=== PATIENT | female | born 1930 | race Hispanic/Latino ===

== ENCOUNTER 2016-06-06 13:39 | Inpatient (IN) | payer OTHER, MEDICARE ==
[~2016-06-06] VITALS: Ht 157.5 cm; Wt 59.4 kg
[~2016-06-06 13:39] MED LIST: AMLODIPINE BESYL5 M1 PO; AMOX-CLAV 875-1 EACH PO; ANTIVERT 12.512.5 MG PO; CLOPIDOGREL75 M1 PO; COLACE100 M1 PO; LEVEMIR FL100 UNIT/1 SC; LYRICA200 M1 PO; MIRALAX17 GM PO; PANTOPRAZOLE SO40 M1 PO; PRAVASTATIN SOD40 M2 PO; PROTONIX40 M4 PO; RANITIDINE HCL300 M3 PO; RIVASTIGMINE1.5 MG PO; RIVASTIGMINE3 MG PO; RIVASTIGMINE6 MG PO; SIMVASTATIN40 MG PO; TRAZODONE HCL50 M1 PO; TYLENOL WITH C1 EACH PO
--- NOTE | 2016-06-06 13:41 | NUR ---
INFORMED WAITING PERFORMED.
--- NOTE | 2016-06-06 13:50 | NUR ---
PER DAUGHTER, PT HAS BEEN SHIVERING TODAY. TEMP WAS 101.5 AND PT GIVEN TYLENOL AT 1315. PT IS DEMENTED AT BASELINE. OTHER THEN THE TEMP NO OTHER PROBLEMS NOTED. TEMP IN TRIAGE 102.9
--- NOTE | 2016-06-06 13:54 | ED GENERAL ADULT ---
See Addendum History of Present Illness General Chief Complaint: General Adult Stated Complaint: SHIVERING,FEVER 101.5 NO OTHER SYMPTOMS Source: patient, family Exam Limitations: dementia, language barrier Vital Signs & Intake/Output Vital Signs & Intake/Output Vital Signs Date Time Temp Pulse Resp B/P Pulse O2 O2 Flow FiO2 Ox Delivery Rate 06/06 1641 97.9 68 18 128/66 96 Room Air 06/06 1349 102.9 69 20 132/57 95 Room Air Triage Note: PER DAUGHTER, PT HAS BEEN SHIVERING TODAY. TEMP WAS 101.5 AND PT GIVEN TYLENOL AT 1315. PT IS DEMENTED AT BASELINE. OTHER THEN THE TEMP NO OTHER PROBLEMS NOTED. TEMP IN TRIAGE 102.9 Triage Nurses Notes Reviewed? yes Onset: Abrupt Duration: day(s): (1) Timing: single episode today Injury Environment: home Severity: moderate Associated Symptoms: CHILLS, RIGORS HPI: This is an 86 old female with history of dementia, CVA who resents from home for chief complaint of fever and right ears this morning. According to the daughter she started to be a little lethargic yesterday during the day but without fever. They figured it was because she was up the previous night talking with family members. She is staying currently with one of her daughters. She was taken out of the house of another family member because everybody there was sick with influenza. She was fine until yesterday morning. Today they noted that she was having right Moses had a fever of 99. It then went to 101 and she was given 650 mg of Tylenol at 12:15. No nausea or vomiting or diarrhea. No rash. No cough shortness of breath or sore throat. They do see that she is urinating frequently. (NANCY STERLING,AXEL) Allergies Coded Allergies: codeine (Severe, HALLUCINATIONS, NAUSEA 06/06/16) oxycodone (From Percocet) (Severe, HALLUCINATIONS, NAUSEA 06/06/16) Sulfa (Sulfonamide Antibiotics) (N/V SEVERE 06/06/16) Reconcile Medications Alendronate Sodium 70 MG TABLET 1 TAB PO QMON OSTEOPOROSIS (Reported) in the morning, at least 30 minutes before the first food, beverage, or medication of the day Amlodipine Besylate 5 MG TABLET 1 TAB PO DAILY b/p (Reported) CLOPIDOGREL BISULFATE (Clopidogrel) 75 MG TABLET 1 TAB PO DAILY BLOD THINNER (Reported) Docusate Sodium (Colace) 100 MG CAPSULE 1 CAP PO BID STOOL SOFTENER (Reported ) Insulin Detemir (Levemir) 100 UNIT/ML VIAL 10 U SC AT BEDTIME DIABETES ( Reported) Insulin Lispro (Humalog Kwikpen U-100) 100 UNIT/ML INSULN.PEN DM (Reported) Pantoprazole Sodium (Protonix) 40 MG GRANPKT.DR 1 TAB PO DAILY ACID REFLUX ( Reported) Polyethylene Glycol 3350 (Miralax) 17 GRAM/DOSE POWDER 17 GM PO DAILY GI ( Reported) mix with water, juice, soda, coffee or tea Pravastatin Sodium 40 MG TABLET 1 TAB PO DAILY hypercholesterolemia (Reported ) Pregabalin (Lyrica) 200 MG CAP 1 CAP PO DAILY PAIN (Reported) Ranitidine HCl 300 MG CAPSULE 1 CAP PO DAILY GI (Reported) Rivastigmine Tartrate (Rivastigmine) 6 MG CAPSULE 1 CAP PO BID MEMORY ( Reported) Sennosides (Senna) (Unknown Strength) TABLET (Unknown Dose) UNKNOWN (Reported ) Trazodone HCl 50 MG TABLET 1 TAB PO QPM sleep (Reported) (JEFF NAVARRO DO) Past History Travel History Traveled to [place] past 21 day No Medical History Any Pertinent Medical History? see below for history Neurological: CVA, dementia, TIA EENT: NONE Cardiovascular: hypertension Respiratory: NONE Gastrointestinal: NONE Hepatic: NONE Renal: urinary incontinence Musculoskeletal: NONE Psychiatric: NONE Endocrine: diabetes Blood Disorders: NONE Cancer(s): NONE PARACHUTE RIGGER/Reproductive: NONE History of MRSA: Yes History of VRE: No History of CDIFF: No Pneumonia Vaccine: 04/04/14 Influenza Vaccine: 04/17/16 Surgical History Surgical History: AMPUTATION OF TOES Psychosocial History Who do you live with Family Services at Home None What is your primary language Malay Tobacco Use: Never used ETOH Use: denies use Family History Hx Contributory? No (NANCY STERLING,AXEL) Review of Systems Review of Systems Constitutional: Reports: chills, fever. EENTM: Reports: no symptoms. Respiratory: Denies: cough, short of breath. Cardiovascular: Denies: chest pain. GI: Denies: abdominal pain, diarrhea, nausea, vomiting. Genitourinary: Reports: frequency. Musculoskeletal: Reports: no symptoms. Skin: Reports: no symptoms. Neurological/Psychological: Reports: no symptoms. Hematologic/Endocrine: Reports: polyuria. Denies: bruising, bleeding, polydipsia. Immunologic/Allergic: Reports: no symptoms. All Other Systems: Reviewed and Negative (AXEL KELLER MD) Physical Exam Physical Exam General Appearance: well developed/nourished, alert, awake, anxious, mild distress Head: atraumatic, normal appearance Eyes: Bilateral: PERRL, EOMI. Ears, Nose, Throat: normal pharynx, normal ENT inspection, hearing grossly normal Neck: normal inspection, supple, full range of motion Respiratory: normal breath sounds, chest non-tender, no respiratory distress Cardiovascular: regular rate/rhythm Peripheral Pulses: 2+ radial (R), 2+ radial (L) Gastrointestinal: normal bowel sounds, soft, non-tender Extremities: normal inspection, normal capillary refill, normal range of motion, no edema Neurologic/Psych: no motor/sensory deficits, awake, alert Skin: intact, normal color, warm/dry Core Measures ACS in differential dx? No CVA/TIA Diagnosis: No Severe Sepsis Present: No Septic Shock Present: No (AXEL KELLER MD) Progress Differential Diagnoses I considered the following diagnoses in my evaluation of the patient: [UTI, PNEUMONIA, BACTERMIA, SEPSIS, influenza, viral syndrome] Plan of Care: Orders Procedure Date/time Status Heart Healthy Diet 06/07 B Active Admit to inpatient 06/06 1732 Active Vital Signs 06/06 1732 Active Code Status 06/06 1732 Active Add-on Test (ER Only) 06/06 1651 Active CULTURE,URINE 06/06 1629 Active Add-on Test (ER Only) 06/06 1504 Active EKG 06/06 1451 Active LACTIC ACID 06/06 1428 Complete RAPID VIRAL INFLUENZA A 06/06 1354 Complete BLOOD CULTURE 06/06 1354 Active URINALYSIS 06/06 1354 Complete COMPREHENSIVE METABOLIC PANEL 06/06 1354 Complete CBC WITHOUT DIFFERENTIAL 06/06 1354 Complete Laboratory Tests 06/06/16 1629: Urinalysis LIGHT H, Urine Color YEL, Urine Clarity HAZY H, Urine pH 6.0, Ur Specific [place] 1.020, Urine Protein 30 H, Urine Ketones NEG, Urine Nitrite NEG, Urine Bilirubin NEG, Urine Urobilinogen 0.2, Ur Leukocyte Esterase LARGE H , Ur Microscopic SEDIMENT EXAMINED, Urine RBC 1-3, Urine WBC 50-75 H, Ur Epithelial Cells RARE, Urine Mucus RARE, Urine Hemoglobin SMALL H, Urine Glucose NEG 06/06/16 1428: Anion Gap 13, Estimated GFR 60, BUN/Creatinine Ratio 26.7 H, Glucose 217 H, Lactic Acid 1.6, Calcium 8.7, Total Bilirubin 0.4, AST 27, ALT 24, Alkaline Phosphatase 179 H, Total Protein 6.7, Albumin 3.5, Globulin 3.2, Albumin/ Globulin Ratio 1.1, CBC w Diff MAN DIFF ORDERED, RBC 3.84 L, MCV 90.6, MCH 30.8 , RDW 12.6, MPV 10.5 H, Gran % 90.5 H, Lymphocytes % 4.5 L, Monocytes % 4.2, Eosinophils % 0.1, Basophils % 0.7, Absolute Granulocytes 15.9 H, Segmented Neutrophils 79 H, Band Neutrophils 8 H, Absolute Lymphocytes 0.8 L, Lymphocytes 8 L, Monocytes 5, Absolute Monocytes 0.7 H, Absolute Eosinophils 0 , Absolute Basophils 0.1, Platelet Estimate DECREASED, Hypochromic-Microcytic 1+ , PUBS MCHC 34.0 Microbiology 06/06 1629 URINE ROUT: Urine Culture - RECD 06/06 1428 BLOOD: Blood Culture - RECD 06/06 1354 BLOOD: Blood Culture - ORD Diagnostic Imaging: Viewed by Me: Radiology Read. Discussed w/RAD: Radiology Read. CXR Impression: EXAM TYPE: RAD - XRY-CHEST XRAY, PA AND LATERAL Indication: Fever EXAMINATION: 2 views of the chest. Comparison is made to previous exam dated 07/23/2012. Also 05/09/2016 FINDINGS: Once again prominent heart size but there is no failure and no infiltrate is seen. The lung nguyen are grossly clear. No effusion. Calcification in the aortic arch is once again noted. IMPRESSION: No acute process. Persistent cardiomegaly. No failure or effusion. No infiltrate Initial ED EKG: none Prior EKG: unchanged Hand-Off Endorsed To: JEFF NAVARRO DO Endorsed Time: 1531 Pending: labs, other (U/A) (AXEL KELLER MD) Departure Departure Disposition: STILL A PATIENT Condition: Stable Clinical Impression Primary Impression: Fever Referrals: AILYN MCKENNA (PCP/Family) Departure Forms: Customer Survey General Discharge Information (AXEL KELLER MD) Departure Comments 06/06/16 Patient signed out to me by Dr Keller. She is pending lab results. Admission Note Spoke With: CECIL REAL MD Documentation of Exam: Documentation of any treatments & extenuating circumstances including Concerns Regarding Discharge (functional status, medication knowledge or non-compliance, living conditions, etc.) that warrant an admission rather than observation: [The patient is being admitted for IV antibiotics, IV fluids, reevaluation, R/O sepsis (JEFF NAVARRO DO) Critical Care Note Critical Care Note Critical Care Time: non-applicable (AXEL KELLER MD) Critical Care Note Comments: 06/06/16 5:46 PM The patient was signed out to me by Dr. Keller. Urinalysis shows pyuria. IV ceftriaxone has been given. (JEFF NAVARRO DO) (AXEL KELLER MD) Critical Care Note Comments: 06/06/16 5:46 PM The patient was signed out to me by Dr. Keller. Urinalysis shows pyuria. IV ceftriaxone has been given. (JEFF NAVARRO DO)
--- NOTE | 2016-06-06 14:34 | NUR ---
FLU SWAB AND BLOOD WORK SENT TO LAB: SST, LAV, BLUE, PICKETT AND FIRST SET OF CULTURES.
[2016-06-06 14:39] LABS: ABSOLUTE BASOPHIL COUNT 0.1 /CUMM (0.0-0.2); ABSOLUTE EOSINOPHIL COUNT 0 /CUMM (0.0-0.7); ABSOLUTE GRANULOCYTE CT 15.9 /CUMM (1.4-6.5); ABSOLUTE LYMPH COUNT 0.8 /CUMM (1.2-3.4); ABSOLUTE MONOCYTE COUNT 0.7 /CUMM (0.10-0.60); BASOPHIL % 0.7 % (0.0-2.0); EOSINOPHIL % 0.1 % (0-5); HEMATOCRIT 34.8 % (37-47); MEAN CORPUSCULAR HGB 30.8 PG (27.0-31.0); MEAN CORPUSCULAR VOLUME 90.6 FL (81.0-99.0); MEAN PLATELET VOLUME 10.5 FL (7.4-10.4); PLATELET COUNT 145 /CUMM (130-400); RBC DISTRIBUTION WIDTH 12.6 % (11.5-14.5); RED BLOOD CELL CT 3.84 /CUMM (4.20-5.40); WHITE BLOOD CELL COUNT 17.6 /CUMM (4.8-10.8)
[2016-06-06 14:40] LABS: GRANULOCYTE % 90.5 % (42.2-75.2)
--- NOTE | 2016-06-06 14:58 | RADIOLOGY REPORT ---
Indication: Fever EXAMINATION: 2 views of the chest. Comparison is made to previous exam dated 07/23/2012. Also 05/09/2016 FINDINGS: Once again prominent heart size but there is no failure and no infiltrate is seen. The lung nguyen are grossly clear. No effusion. Calcification in the aortic arch is once again noted. IMPRESSION: No acute process. Persistent cardiomegaly. No failure or effusion. No infiltrate
--- NOTE | 2016-06-06 15:23 | NUR ---
PTS DAUGHTER ASSISTING PT UP TO THE COMMODE AT THIS TIME, URINE IS NEEDED AND DAUGHTER DOES NOT WANT PT STRAIGHT CATHED DUE TO RISK OF INFECTION
--- NOTE | 2016-06-06 15:56 | NUR ---
PT UNABLE TO VOID ON COMMODE AND DAUGHTER GIVES OK FOR STRAIGHT CATH AT HIS TIME
--- NOTE | 2016-06-06 16:31 | NUR ---
PT STRAIGHT CATH FOR 400 CC CLEAR YELLOW URINE, NO FOUL ODOR NOTED, DAUGHTER REMAINS AT BEDSIDE WITH PT. URINE TRIO SENT
[2016-06-06] MEDS ORDERED: ALENDRONATE SOD70 M2 PO (16:52)
[2016-06-06] MEDS ORDERED: HUMALOG KW100 UNIT/1 SC (16:53)
[2016-06-06] MEDS ORDERED: RANITIDINE HCL300 M3 PO (16:53)
[2016-06-06] MEDS ORDERED: SENNA8.6 M3 (16:54)
[2016-06-06] MEDS ORDERED: RIVASTIGMINE6 MG PO (16:58)
--- NOTE | 2016-06-06 18:36 | NUR ---
PT SITTING UP EATING AT THIS TIME PER FAMILY PT NEEDS DIABETIC TRAY BUT THAT IT NEEDS TO BE PUREED DUE TO PT WILL NOT WEAR HER DENTURES . DR NAVARRO MADE AWARE TO CHANGE ORDER
--- NOTE | 2016-06-06 21:05 | NUR ---
HOUSE STAFF AT BEDSIDE FOR EVAL
--- NOTE | 2016-06-06 21:25 | History & Physical ---
ISIDRO NIEVES MDRIE 06/06/162123: General Information and HPI MD Statement: I have seen and personally examined JOSAFAT CONTRERAS and documented this H&P. The patient is a 86 year old F who presented with a patient stated chief complaint of [fever and chills]. Source of Information: patient, family Exam Limitations: dementia, language barrier, pt only speaks r[place], but her daughter was at bedside to give us the history. History of Present Illness: 86-year-old female with PMH dementia, CVA, IDDM, HTN, HLD, PVD, UTI with group B strep, was brought in for fever and chills. Pt is demented and only speaks rwandan. Her daughter was at bedside giving us the history. 2 night ago, pt stayed up late chit chatting with her daughter, and she ended up sleeping late. The day after, she was noted to be more lethargic and sleepy. The daughter attributed it to her staying up late the night prior. The day of admission, she appeared to be in her normal state of health, up until around 10 am. She then complained of feeling cold and started shivering that lasted 30 minutes. Home PT was there and took her temp, initially 99.5, and went as high as 101.5. She was given tylenol at around 115 and examined in the ED about 1.5 hours later. Her temp at triage was 102.9. Sick contacts include pt's daughter and son-in-law, whom she was living with. Since they got sick, she has been relocated to her son's house. She denies myalgia or any other flu like symptoms. Her appetite has been good, and she has been drinking more fluids. As such, she is also noted to have increased urinary frequency, althought denies dysuria, burning with urination, change in urine color or odor. Of note, pt was admitted and discharged from [facility] on 05/11/16 for AMS most likely secondary to UTI with UC growing group B strep. She completed 3 days of augmentin. Pt is usually continent of urine at baseline. Pt's hx is also significantly for right and left big toe amputation for PVD and MRSA infection. Pt should be ambulating with a walker but is non compliant. About 3 weeks ago, she was walking by herself in the dark and fell, with a bruise still noted on the left eye. She is allergic to codeine, oxycodone, and sulfa. Allergies/Medications Allergies: Coded Allergies: codeine (Severe, HALLUCINATIONS, NAUSEA 06/06/16) oxycodone (From Percocet) (Severe, HALLUCINATIONS, NAUSEA 06/06/16) Sulfa (Sulfonamide Antibiotics) (N/V SEVERE 06/06/16) Home Med list Alendronate Sodium 70 MG TABLET 1 TAB PO QMON OSTEOPOROSIS (Reported) in the morning, at least 30 minutes before the first food, beverage, or medication of the day Amlodipine Besylate 5 MG TABLET 1 TAB PO DAILY b/p (Reported) CLOPIDOGREL BISULFATE (Clopidogrel) 75 MG TABLET 1 TAB PO DAILY BLOD THINNER (Reported) Docusate Sodium (Colace) 100 MG CAPSULE 1 CAP PO BID STOOL SOFTENER (Reported ) Insulin Detemir (Levemir) 100 UNIT/ML VIAL 10 U SC AT BEDTIME DIABETES ( Reported) Insulin Lispro (Humalog Kwikpen U-100) 100 UNIT/ML INSULN.PEN DM (Reported) Pantoprazole Sodium (Protonix) 40 MG GRANPKT.DR 1 TAB PO DAILY ACID REFLUX ( Reported) Polyethylene Glycol 3350 (Miralax) 17 GRAM/DOSE POWDER 17 GM PO DAILY GI ( Reported) mix with water, juice, soda, coffee or tea Pravastatin Sodium 40 MG TABLET 1 TAB PO DAILY hypercholesterolemia (Reported ) Pregabalin (Lyrica) 200 MG CAP 1 CAP PO DAILY PAIN (Reported) Ranitidine HCl 300 MG CAPSULE 1 CAP PO DAILY GI (Reported) Rivastigmine Tartrate (Rivastigmine) 6 MG CAPSULE 1 CAP PO BID MEMORY ( Reported) Sennosides (Senna) (Unknown Strength) TABLET (Unknown Dose) UNKNOWN (Reported ) Trazodone HCl 50 MG TABLET 1 TAB PO QPM sleep (Reported) Past History Travel History Traveled to [place] past 21 day No Medical History Neurological: CVA, dementia, TIA EENT: NONE Cardiovascular: hypertension, myocardial infarction Respiratory: NONE Gastrointestinal: NONE Hepatic: NONE Musculoskeletal: NONE Psychiatric: NONE Endocrine: diabetes Blood Disorders: NONE Cancer(s): NONE DIRECTOR INVESTOR RELATIONS/Reproductive: NONE History of MRSA: Yes Active MRSA Infection: No History of VRE: No History of CDIFF: No Isolation History: Standard Pneumonia Vaccine: 04/04/14 Influenza Vaccine: 04/17/16 Surgical History Surgical History: AMPUTATION OF TOES Past Family/Social History Psychosocial History Where do you live? Home Who Do You Live With? child Services at Home: Physical Therapy Primary Language: [place] Citizen Smoking Status: Never Smoked ETOH Use: denies use Illicit Drug Use: denies illicit drug use Power of Pearl Technician/HCP? yes Functional Ability ADLs Needs Assist: dressing, eating, toileting, bathing. Ambulation: walker IADLs Needs Assist: shopping, housework, finances, food prep, telephone, transportation, medication admin. Review of Systems Review of Systems Constitutional: Reports: chills, fever. Denies: weakness. EENTM: Denies: double vision, visual changes. Cardiovascular: Denies: chest pain, palpitations. Respiratory: Denies: cough, short of breath. GI: Denies: abdominal pain, bloating, constipation, diarrhea, distention. Genitourinary: Reports: frequency, nocturia. Denies: dysuria, hematuria, hesitation, pain, urgency. Exam & Diagnostic Data Last 24 Hrs of Vital Signs/I&O Vital Signs Date Time Temp Pulse Resp B/P Pulse O2 O2 Flow FiO2 Ox Delivery Rate 06/06 1930 97.2 57 16 159/67 100 Room Air 06/06 1641 97.9 68 18 128/66 96 Room Air 06/06 1349 102.9 69 20 132/57 95 Room Air Intake & Output 06/06 1600 06/06 0800 06/06 0000 Intake Total 1000 Output Total Balance 1000 Intake, IV 1000 Patient 59.421 kg Weight Physical Exam General Appearance Alert, Cooperative, No Acute Distress Skin bruise around the left eye HEENT Atraumatic, PERRLA Cardiovascular Regular Rate, Normal S1, Normal S2, No Murmurs, Gallops, Rubs Lungs Clear to Auscultation, Normal Air Movement Abdomen Normal Bowel Sounds, Soft, No Tenderness, no flank pain bilaterally Neurological Normal Speech Extremities No Edema, Normal Pulses, sp right and left big toe amputation Vascular normal cap refill Last 24 Hrs of Labs/Justo: Laboratory Tests 06/06/16 1629: Urinalysis LIGHT H, Urine Color YEL, Urine Clarity HAZY H, Urine pH 6.0, Ur Specific [place] 1.020, Urine Protein 30 H, Urine Ketones NEG, Urine Nitrite NEG, Urine Bilirubin NEG, Urine Urobilinogen 0.2, Ur Leukocyte Esterase LARGE H , Ur Microscopic SEDIMENT EXAMINED, Urine RBC 1-3, Urine WBC 50-75 H, Ur Epithelial Cells RARE, Urine Mucus RARE, Urine Hemoglobin SMALL H, Urine Glucose NEG 06/06/16 1428: Anion Gap 13, Estimated GFR 60, BUN/Creatinine Ratio 26.7 H, Glucose 217 H, Lactic Acid 1.6, Calcium 8.7, Total Bilirubin 0.4, AST 27, ALT 24, Alkaline Phosphatase 179 H, Total Protein 6.7, Albumin 3.5, Globulin 3.2, Albumin/ Globulin Ratio 1.1, CBC w Diff MAN DIFF ORDERED, RBC 3.84 L, MCV 90.6, MCH 30.8 , RDW 12.6, MPV 10.5 H, Gran % 90.5 H, Lymphocytes % 4.5 L, Monocytes % 4.2, Eosinophils % 0.1, Basophils % 0.7, Absolute Granulocytes 15.9 H, Segmented Neutrophils 79 H, Band Neutrophils 8 H, Absolute Lymphocytes 0.8 L, Lymphocytes 8 L, Monocytes 5, Absolute Monocytes 0.7 H, Absolute Eosinophils 0 , Absolute Basophils 0.1, Platelet Estimate DECREASED, Hypochromic-Microcytic 1+ , PUBS MCHC 34.0 Microbiology 06/06 1629 URINE ROUT: Urine Culture - RECD 06/06 1428 BLOOD: Blood Culture - RECD 06/06 1354 BLOOD: Blood Culture - ORD Assessment/Plan Assessment: 86-year-old female with PMH dementia, CVA, IDDM, HTN, HLD, PVD, UTI with group B strep, was brought in for fever up to 102.9 and chills. Labs significant for WBC 17.6 with bands, UA large amount of leukocyte esterase and wbc 50-75, with negative nitrite and rare epithelial cells. She is admitted to general medicine floor for sepsis of urological origin. # Sepsis of urological origin - LA 1.6, pt does not appear dehydrated - Given 1 X ceftriaxone in ED - Given 1L of NS in the ED - Hx of group b strep UTI 1 month ago, treated with 3 days of augmentin. - no flank pain bilaterally * Follow urine culture and BC X 2 * Continue ceftriaxone * Follow rapid flu # Dementia * Continue rivastigmine 6 bid # DM * Continue lyrica 200 mg * accucheck * levemir 6 at bedtime (as per daughter) * insulin ss # Osteoporosis * Continue alendronate 70 q saturday # HTN * Continue amlodipine 5 # HLD * Continue statin (pravastatin 40 at home) # Hx of CVA * Continue plavix 75 daily # GI * Continue protonix 40 * Continue ranitidine 300 mg # Constipation * Continue docusate * Continue miralax * Continue senna # Sleep * Continue trazodone 50 qpm Diet: puree DVT ppx: mech and pharm DNR/DNI As Ranked By This Provider Problem List: 1. Leukocytosis 2. Fever 3. UTI (urinary tract infection) Core Measures/Miscellaneous Acute Coronary Syndrome ACS Diagnosis: No Cerebrovascular Accident CVA/TIA Diagnosis: No Congestive Heart Failure CHF Diagnosis: No Venous Thromboembolism VTE Risk Factors: Acute medical illness, Age > 40 VTE Prophylaxis Ordered Inpt: Mech & Pharm No Mech VTE prophylaxis d/t: No contraindications No VTE Pharm Prophylaxis d/t: No contraindications VTE Diagnosis: No VTE Type: NONE VTE Confirmed by (Test): NONE Severe Sepsis Severe Sepsis Present: No Septic Shock Septic Shock Present: No Miscellaneous Documentation Attending Case Discussed With: KILLIAN GUZMAN MD Primary Care Physician: AILYN MCKENNA Patient sees these Specialists N/A Level of Patient Care: General Medicine YOGESHTHIERNOSA MIREYAUD 06/07/16 0119: Resident Review Statement Resident Statement: examined this patient, discussed with internet e commerce specialist, agreed with internet e commerce specialist, discussed with family, reviewed EMR data (avail), reviewed images, amended to note Other Findings: This is a 86-year-old female with past medical history of diabetes mellitus, CVA , hypertension, hyperlipidemia, peripheral vascular disease, recurrent UTI, dementia, history of MRSA. Patient was recently discharged from [facility] on 05/11/2016 that was for altered mental status and underlying cystitis that was treated with by mouth Augmentin. Patient presenting now with chief complaint of high fever of 101.5, feeling lethargic and weak and she complain of feeling cold. Patient report sick contact of flu. The family reported that she fell down 3 weeks ago and her head. Patient had fever on arrival TO ED 102.9. Urine analysis positive for high WBC count and leukoesterase, patient has a leukocytosis 17.6 with positive band. Most of the history was taking from her daughter. Physical examination, lab and imaging as above. Problem list: -Sepsis secondary to UTI -Lethargy, weakness due to UTI -Pseudohyponatremia due to hyperglycemia, corrected sodium 137 -Hypertension Plan: -Admit patient to general medicine floor -Vitals every shift -Start the patient on IV ceftriaxone pending culture results -Follow-up blood and urine culture -Start the patient on IV NS @75 cc fluid maintenance -Both lactic acid came back negative -Accu-Chek, Levemir and insulin sliding scale -Carbohydrate consistent diet, pure and thin -Physical therapy consultation. -Pain pathway -Continue home medication -DVT prophylaxis: Subcutaneous heparin -DNI DNR per the patient daughter. KILLIAN GUZMAN 06/07/16 0151: Attending MD Review Statement Attending Statement Attending MD Statement: examined this patient, discuss w/resident/PA/FIRST SAMPLER, agreed w/resident/PA/FIRST SAMPLER, discussed with family, reviewed EMR data (avail), reviewed images, amended to note Attending Assessment/Plan: CC: Fever and chills PMHx: Dementia, CVA, DM, HTN, HLD, [place]/CAD, PVD, osteomyelitis in the past with MRSA Patient brought in by her daughter for fever and chills. Patient's is taken care by daughter and son. Daughter, who is RN, states that patient had been lethargic per day before. Then on the day of admission patient started shivering and had fever spike of 101.5 at home. Patient did not complain of any urinary pain, burning had some frequency in urination. Denied any upper respiratory symptoms, cough, chest pain, abdominal pain, back pain, skin rashes. She had sick contacts daughter and son-in-law having flu sometime back. Her diet was changed to pured and last admission and has been compliant with the diet, does not wear dentures, no choking episodes. Of note patient's daughter was saying that the patient's blood glucose has been running below since last few days and that decreased the dose of long-acting insulin. Vitals: Tmax at presentation 102.9, pulse in 70s, RR in 20s, mildly hypertensive , saturating well on room air. On exam: [place] Citizen-speaking, alert, responds appropriately, follows instructions. CVS: S1-S2, RRR. RS: Clear air entry bilaterally. Neck supple, no lymphadenopathy, and, no JVD, mucosa dry, no upper respiratory congestion, no skin rashes on complete examination, no pressure ulcers on back. Abdomen: Soft, NT, ND, no Marie sign, bowel sounds present. No focal neurological deficit. No extremity edema. Labs: WBC 17.6 with neutrophils 90%, hemoglobin 11.8 (chronic), blood glucose 217, lactate 1.6, alkaline phosphatase 179. UA shows leukocyte esterase trace. Chest x-ray no acute processes. A and P #1 Sepsis probably secondary to UTI: Patient had leukocytosis, fever with urine positive for leukocyte esterase. Previously patient was then admitted for similar complaints and discharged on May 11 on Augmentin. Previous urine was positive for group B strep. This could be recurrent UTI. Previous admission patient had CT abdomen and pelvis without any significant hydronephrosis or stones, but patient's urinary bladder showed diffuse prominence. On examination currently patient does not have any CVA tenderness or suprapubic tenderness. Does not have any nasal congestion or any other rashes, Marie's sign negative. Probably this is secondary to cystitis. Get urine cultures, blood cultures continue ceftriaxone IV. Check CULTURES if not done. If patient persistently spikes fever and will need renal ultrasound to rule out any obstruction. Post void bladder scan to rule out retention. Await for urine culture to be escalate antibiotics. #2 DM. Ppatient currently on insulin, continue home doses of insulin for long- acting and change short-acting scheduled to sliding scale. Patient is currently hyperglycemic, but family states that she has been having low sugars at home. If required endocrine consult in AM. #3 OT PT evaluation in AM. #4 DVT prophylaxis with Lovenox. Adequate pain control. #5 chronic stable conditions with dementia, CVA, HTN, CAD, PVD, HLD: Continue all her home medications including Plavix, amlodipine, Protonix, pravastatin, Lyrica, reverse segment, trazodone
[2016-06-06 23:55] VITALS: BP 180/60
[2016-06-07 01:42] VITALS: BP 138/50
--- NOTE | 2016-06-07 01:52 | Admission Certification ---
Admission Certification Certification Statement - As attending physician, I certify that at the time of - admission, based on clinical presentation, severity of - symptoms, need for further diagnostic testing and - therapeutic interventions, and risk of adverse outcomes - without in-hospital treatment, in my clinical assessment, - this patient requires an acute hospital stay for a minimum - of two nights or longer. I have also considered psychsocial - factors such as support system, advanced age, financial - issues, cognitive issues, and failed out-patient treatments, - past re-admission history, safety of patient, and lack of - compliance as applicable. Specific rationale supporting this admission is: Sepsis with UTI
[2016-06-07 06:32] LABS: ABSOLUTE BASOPHIL COUNT 0 /CUMM (0.0-0.2); ABSOLUTE EOSINOPHIL COUNT 0.2 /CUMM (0.0-0.7); ABSOLUTE GRANULOCYTE CT 9.9 /CUMM (1.4-6.5); ABSOLUTE LYMPH COUNT 1.5 /CUMM (1.2-3.4); ABSOLUTE MONOCYTE COUNT 0.8 /CUMM (0.10-0.60); BASOPHIL % 0.3 % (0.0-2.0); EOSINOPHIL % 1.4 % (0-5); HEMATOCRIT 31.1 % (37-47); MEAN CORPUSCULAR HGB 30.6 PG (27.0-31.0); MEAN CORPUSCULAR HGB CONC 33.2 G/DL (33.0-37.0); MEAN CORPUSCULAR VOLUME 92.1 FL (81.0-99.0); MEAN PLATELET VOLUME 10.1 FL (7.4-10.4); PLATELET COUNT 117 /CUMM (130-400); RBC DISTRIBUTION WIDTH 13.1 % (11.5-14.5); RED BLOOD CELL CT 3.38 /CUMM (4.20-5.40); WHITE BLOOD CELL COUNT 12.3 /CUMM (4.8-10.8)
[2016-06-07 08:03] VITALS: BP 133/62
--- NOTE | 2016-06-07 08:43 | PN- Housestaff ---
ANEL STERLING,[facility] 06/07/16 0842: Subjective Follow-up For: Weakness Urinary tract infection Subjective: Patient seen and examined this morning. She was lying comfortably in bed in no acute distress. MAXIMUM TEMPERATURE of 99.1 today, other vitals remained within normal limits. No urinary complaints except for increased frequency of urination, denies any suprapubic pain, CVA tenderness. Has been tolerating by mouth intake well. Review of Systems Constitutional: Reports: see HPI. Objective Last 24 Hrs of Vital Signs/I&O Vital Signs Date Time Temp Pulse Resp B/P Pulse O2 O2 Flow FiO2 Ox Delivery Rate 06/07 1100 57 133/62 06/07 0803 99.1 57 20 133/62 95 Room Air 06/07 0737 99.1 57 20 133/62 95 Room Air 06/07 0142 61 138/50 06/07 0012 60 180/60 06/06 2355 96.7 74 18 180/60 99 Room Air 06/06 1930 97.2 57 16 159/67 100 Room Air 06/06 1641 97.9 68 18 128/66 96 Room Air Intake & Output 06/07 1600 06/07 0800 06/07 0000 Intake Total 690 150 Output Total 450 700 Balance 240 -550 Intake, IV 450 0 Intake, Oral 240 150 Number 0 0 Bowel Movements Output, Urine 450 700 Patient 59.421 kg Weight Physical Exam General Appearance: Alert, Oriented X3, Cooperative Cardiovascular: Regular Rate, Normal S1, Normal S2 Lungs: Clear to Auscultation, Normal Air Movement Abdomen: Normal Bowel Sounds, Soft, No Tenderness Neurological: Normal Speech, Strength at 5/5 X4 Ext Current Medications: Current Medications Sig/Rachelle Start time Last Medication Dose Route Stop Time Status Admin Acetaminophen 650 MG Q6P PRN 06/06 2115 AC PO Alendronate Sodium 70 MG QMON 06/11 0700 AC PO Amlodipine Besylate 5 MG DAILY 06/07 1000 AC 06/07 PO 1100 Amlodipine Besylate 0 .STK-MED ONE 06/07 0009 DC PO Amlodipine Besylate 5 MG ONCE ONE 06/06 2345 DC 06/07 PO 06/06 2346 0012 Ceftriaxone Sodium 1,000 MG 1700 06/07 1700 AC IV Ceftriaxone Sodium 0 .STK-MED ONE 06/06 1733 DC .ROUTE Ceftriaxone Sodium 1,000 MG DAILY 06/06 1714 DC 06/06 IV 1735 Clopidogrel Bisulfate 75 MG DAILY 06/07 1000 AC 06/07 PO 1100 Docusate Sodium 100 MG BID 06/07 1000 AC 06/07 PO 1100 Heparin Sodium 5,000 UNIT Q8 06/06 2200 AC 06/07 (Porcine) SC 1307 Insulin Aspart 0 TIDAC 06/07 0800 AC 06/07 SC 1215 Insulin Detemir 6 UNITS QPM 06/06 2200 AC 06/06 SC 2320 Omeprazole 40 MG DAILY AC 06/07 0700 AC 06/07 PO 0627 Pravastatin Sodium 40 MG 1700 06/07 1700 AC PO Pregabalin 200 MG DAILY 06/07 1000 AC 06/07 PO 1200 Pregabalin 0 .STK-MED ONE 06/07 0010 DC PO Pregabalin 200 MG ONCE ONE 06/06 2345 DC 06/07 PO 06/06 2346 0012 Rivastigmine Tartrate 6 MG BID 06/07 1000 AC 06/07 PO 1100 Sodium Chloride 1,000 ML Q13H 06/06 2345 DC 06/07 IV 06/07 1244 0012 Trazodone HCl 50 MG QPM 06/06 2200 AC 06/06 PO 2320 Last 24 Hrs of Lab/Justo Results Last 24 Hrs of Labs/Mics: Laboratory Tests 06/07/16 0625: Anion Gap 7, Estimated GFR 47 L, BUN/Creatinine Ratio 20.9, CBC w Diff NO MAN DIFF REQ, RBC 3.38 L, MCV 92.1, MCH 30.6, RDW 13.1, MPV 10.1, Gran % 80.0 H, Lymphocytes % 12.1 L, Monocytes % 6.2, Eosinophils % 1.4, Basophils % 0.3, Absolute Granulocytes 9.9 H, Absolute Lymphocytes 1.5, Absolute Monocytes 0.8 H, Absolute Eosinophils 0.2, Absolute Basophils 0, PUBS MCHC 33.2 06/07/16 0034: Lactic Acid 1.2 06/06/16 1629: Urinalysis LIGHT H, Urine Color YEL, Urine Clarity HAZY H, Urine pH 6.0, Ur Specific [place] 1.020, Urine Protein 30 H, Urine Ketones NEG, Urine Nitrite NEG, Urine Bilirubin NEG, Urine Urobilinogen 0.2, Ur Leukocyte Esterase LARGE H , Ur Microscopic SEDIMENT EXAMINED, Urine RBC 1-3, Urine WBC 50-75 H, Ur Epithelial Cells RARE, Urine Mucus RARE, Urine Hemoglobin SMALL H, Urine Glucose NEG Microbiology 06/07 0034 BLOOD: Blood Culture - RECD 06/06 1629 URINE ROUT: Urine Culture - RES GRAM NEGATIVE RODS BETA STREP GROUP B Assessment/Plan Assessment: 86-year-old female with PMH dementia, CVA, IDDM, HTN, HLD, PVD, UTI with group B strep, was brought in for fever up to 102.9 and chills. Labs significant for WBC 17.6 with bands, UA large amount of leukocyte esterase and wbc 50-75, with negative nitrite and rare epithelial cells. She is admitted to general medicine floor for sepsis of urological origin. # Sepsis of urological origin Will continue ceftriaxone daily pending urine culture and blood culture. MAXIMUM TEMPERATURE 99.1, WBC trending down, lactic acid normal, have ordered urine cytology, urology has been consulted for recurrent UTIs. Will f/u recs. # Dementia * Continue rivastigmine 6 bid # DM * Continue lyrica 200 mg * accucheck * levemir 6 at bedtime (as per daughter) * insulin ss # Osteoporosis * Continue alendronate 70 q saturday # HTN * Continue amlodipine 5 # HLD * Continue statin (pravastatin 40 at home) # Hx of CVA * Continue plavix 75 daily # GI * Continue protonix 40 * Continue ranitidine 300 mg # Constipation * Continue docusate * Continue miralax * Continue senna # Sleep * Continue trazodone 50 qpm Diet: puree DVT ppx: mech and pharm Problem List: 1. Fever 2. Leukocytosis 3. UTI (urinary tract infection) Pain Ratin Pain Location: none Pain Goal: Remain pain free Pain Plan: mild pp Tomorrow's Labs & Rationales: MARIBEL MYERS MD,MAYTE 06/07/16 1142: Attending MD Review Statement Attending Statement Attending MD Statement: examined this patient, discuss w/resident/PA/ANIMAL CONTROL OFFICER, agreed w/resident/PA/ANIMAL CONTROL OFFICER, discussed with family, reviewed EMR data (avail), discussed with nursing, amended to note Attending Assessment/Plan: Patient is a pleasant 86-year-old female with history of dementia, diabetes and hypertension. She was admitted to [facility] last month with symptoms of weakness and confusion. Urine cultures grew out beta strep group B. Abdominal imaging at that time showed evidence of cystitis. About 2 weeks prior to hospitalization at that time she completed outpatient treatment for urinary tract infection primary care provider. Patient responded to brief course of antibiotic therapy in the hospital and was discharged home in stable condition. Family reports that she has been doing well until yesterday when she started complaining of weakness and was noted to be febrile. She arrived in the emergency room medically stable was febrile in the emergency room and did have a leukocytosis on arrival. She is currently alert and oriented 3. She is not in any acute distress. She offers no symptoms to suggest an infectious etiology at present. Her lungs are clear bilaterally. Abdomen is soft and nontender. She has no right upper quadrant tenderness. She has no rash. Heart sounds are normal with no added sounds. Diagnostic workup at present is only concerning for urinary tract infection based on a mildly abnormal UA with elevated WBC and leukoesterase. Recommendations: -Follow-up blood urine cultures. Continue empiric antibiotic therapy for now with IV Rocephin. -If urine cultures return positive recommend ID consultation for antibiotic recommendations and also constipation for suppressive antibiotic therapy. -She has a history of a coccygeal ulcer which family are currently reports has healed. We'll confirm this during full body care by the nursing staff. -Mobilize patient as tolerated.
--- NOTE | 2016-06-07 11:39 | NUR ---
PHYSICAL THERAPY AT BEDSIDE
--- NOTE | 2016-06-07 13:31 | NUR ---
PT ASSIGNED ROOM [id number]
--- NOTE | 2016-06-07 16:09 | NUR ---
TRANSPORT HERE FOR PT
--- NOTE | 2016-06-07 16:17 | NUR ---
PT TRANSPORTED TO FLOOR
[2016-06-07 17:02] VITALS: BP 140/60
[2016-06-07 22:50] VITALS: BP 130/70
--- NOTE | 2016-06-08 07:58 | PN- Housestaff ---
ANEL STERLING,[facility] 06/08/16 0758: Subjective Follow-up For: urinary tract infection Subjective: pt seen and examined. she was sitting in bed in no acute distress, no urinary complaints, no fever, white count stable. no other complaints, sacral wound no signs of infection. Review of Systems Constitutional: Reports: see HPI. Objective Last 24 Hrs of Vital Signs/I&O Vital Signs Date Time Temp Pulse Resp B/P Pulse O2 O2 Flow FiO2 Ox Delivery Rate 06/08 1417 97.1 66 20 120/68 93 06/08 0811 97.7 55 20 120/70 96 06/07 2250 97.8 55 20 130/70 96 Intake & Output 06/08 1600 06/08 0800 06/08 0000 Intake Total 600 200 530 Output Total Balance 600 200 530 Intake, IV 30 Intake, Oral 600 200 500 Physical Exam General Appearance: Alert, Oriented X3, Cooperative, No Acute Distress Cardiovascular: Regular Rate, Normal S1, Normal S2, No Murmurs Lungs: Clear to Auscultation, Normal Air Movement Abdomen: Normal Bowel Sounds, Soft, No Tenderness Extremities: No Clubbing, No Cyanosis, No Edema Current Medications: Current Medications Sig/Rachelle Start time Last Medication Dose Route Stop Time Status Admin Acetaminophen 650 MG Q6P PRN 06/06 2115 AC PO Alendronate Sodium 70 MG QMON 06/11 0700 AC PO Amlodipine Besylate 5 MG DAILY 06/07 1000 AC 06/08 PO 1016 Bisacodyl 10 MG ONCE PRN 06/08 1030 AC 06/08 NE 1104 Ceftriaxone Sodium 1,000 MG 1700 06/07 1700 AC 06/08 IV 1808 Clopidogrel Bisulfate 75 MG DAILY 06/07 1000 AC 06/08 PO 1015 Docusate Sodium 100 MG BID 06/07 1000 AC 06/08 PO 1014 Heparin Sodium 5,000 UNIT Q8 06/06 2200 AC 06/08 (Porcine) SC 1403 Insulin Aspart 0 TIDAC 06/07 0800 AC 06/08 SC 1257 Insulin Detemir 6 UNITS QPM 06/06 2200 AC 06/07 SC 2115 Lactobacillus 1 CAP DAILY 06/08 1857 AC Acidophilus PO Omeprazole 40 MG DAILY AC 06/07 0700 AC 06/08 PO 0605 Polyethylene Glycol 17 GM DAILY 06/08 1019 AC 06/08 PO 1257 Pravastatin Sodium 40 MG 1700 06/07 1700 AC 06/08 PO 1807 Pregabalin 200 MG DAILY 06/07 1000 AC 06/08 PO 1016 Rivastigmine Tartrate 6 MG BID 06/07 1000 AC 06/08 PO 1015 Trazodone HCl 50 MG QPM 06/06 2200 AC 06/07 PO 2115 Last 24 Hrs of Lab/Justo Results Last 24 Hrs of Labs/Mics: Laboratory Tests 06/08/16 0635: Anion Gap 10, Estimated GFR > 60, BUN/Creatinine Ratio 20.0 06/08/16 0600: CBC w Diff NO MAN DIFF REQ, RBC 3.40 L, MCV 91.6, MCH 31.1 H, RDW 13.0, MPV 11.0 H, Gran % 56.6, Lymphocytes % 28.5, Monocytes % 11.0 H, Eosinophils % 3.5 , Basophils % 0.4, Absolute Granulocytes 4.1, Absolute Lymphocytes 2.0, Absolute Monocytes 0.8 H, Absolute Eosinophils 0.3, Absolute Basophils 0, PUBS MCHC 34.0 Assessment/Plan Assessment: 86-year-old female with PMH dementia, CVA, IDDM, HTN, HLD, PVD, UTI with group B strep, was brought in for fever up to 102.9 and chills. Labs significant for WBC 17.6 with bands, UA large amount of leukocyte esterase and wbc 50-75, with negative nitrite and rare epithelial cells. She is admitted to general medicine floor for sepsis of urological origin. # Sepsis of urological origin Will continue ceftriaxone pending urine culture and blood culture. Afebrile, WBC trending down, lactic acid normal, have ordered urine cytology, urology has been consulted for recurrent UTIs. Will f/u recs. # Dementia * Continue rivastigmine 6 bid # DM * Continue lyrica 200 mg * accucheck * levemir 6 at bedtime (as per daughter) * insulin ss # Osteoporosis * Continue alendronate 70 q saturday # HTN * Continue amlodipine 5 # HLD * Continue statin (pravastatin 40 at home) # Hx of CVA * Continue plavix 75 daily # GI * Continue protonix 40 * Continue ranitidine 300 mg # Constipation * Continue docusate * Continue miralax * Continue senna # Sleep * Continue trazodone 50 qpm Diet: puree DVT ppx: mech and pharm Problem List: 1. Leukocytosis 2. UTI (urinary tract infection) Pain Ratin Pain Location: none Pain Goal: Remain pain free Pain Plan: mild pp Tomorrow's Labs & Rationales: none LUCIA STERLINGROBERTKelle 06/08/16 1206: Attending MD Review Statement Attending Statement Attending MD Statement: examined this patient, discuss w/resident/PA/TUBER OPERATOR, agreed w/resident/PA/TUBER OPERATOR, reviewed EMR data (avail), discussed with nursing, discussed with case mgmt, amended to note Attending Assessment/Plan: Patient seen and examined. The much better today. Alert and oriented 3. Conversing appropriately. Daughter is present at the bedside and states that she is indeed much better. She is currently growing gram-negative rods and Beta Strep group B in her urine. She denies nausea vomiting. Denies abdominal pain. She is afebrile and hemodynamically stable. Her leukocytosis has resolved today. On examination she has no abdominal tenderness. Problems: 1. Recurrent UTI now with polymicrobial organisms 2. Abnormal urinary bladder imaging on prior CT abdomen. 3. Dementia 4. Insulin-dependent diabetes mellitus 5. Peripheral vascular disease Plan: -Continue IV Rocephin pending identification and sensitivities of the gram- negative rods. -In view of her recurrent UTIs and now polymicrobial organisms would recommend infectious disease consultation at this time. -Recommend urology evaluation of her abnormal urinary bladder imaging. She will benefit from an elective cystoscopy, please follow-up with the urology service regarding timing. -Her glucose level was 72 this morning. Her glucose levels have otherwise been acceptable. She is on Levemir 10 units at home. She is being given 6 units of Levemir in the hospital. Continue to monitor glucose levels. -No need to repeat CBC or serum chemistry tomorrow unless there is a change in clinical status.
[2016-06-08 08:02] LABS: ABSOLUTE BASOPHIL COUNT 0 /CUMM (0.0-0.2); ABSOLUTE EOSINOPHIL COUNT 0.3 /CUMM (0.0-0.7); ABSOLUTE GRANULOCYTE CT 4.1 /CUMM (1.4-6.5); ABSOLUTE MONOCYTE COUNT 0.8 /CUMM (0.10-0.60); BASOPHIL % 0.4 % (0.0-2.0); EOSINOPHIL % 3.5 % (0-5); GRANULOCYTE % 56.6 % (42.2-75.2); HEMATOCRIT 31.2 % (37-47); MEAN CORPUSCULAR HGB 31.1 PG (27.0-31.0); MEAN CORPUSCULAR VOLUME 91.6 FL (81.0-99.0); PLATELET COUNT 121 /CUMM (130-400); WHITE BLOOD CELL COUNT 7.2 /CUMM (4.8-10.8)
[2016-06-08 08:11] VITALS: BP 120/70
[2016-06-08 14:17] VITALS: BP 120/68
--- NOTE | 2016-06-08 16:05 | Patient Discharge Instructions ---
Discharge Instructions General Discharge Information You were seen/treated for: Sepsis of urological origin Special Instructions: please schedule a follow up appointment in one week with urology to investigate cause of recurrent UTIs more. please f/u with your Primary care physician in one week. Diet Continue normal diet: Yes Recommended Diet: Heart Healthy Activity Activity Self Limited: Yes Acute Coronary Syndrome Inclusion Criteria At DC or during hospital stay patient has or had the following: ACS DIAGNOSIS No Discharge Core Measures Meds if any: Prescribed or Continued at Discharge Meds if any: NOT Prescribed or Continued at Discharge Congestive Heart Failure Inclusion Criteria At DC or during hospital stay patient has or had the following: CHF DIAGNOSIS No Discharge Core Measures Meds if any: Prescribed or Continued at Discharge Meds if any: NOT Prescribed or Continued at Discharge Cerebrovascular accident Inclusion Criteria At DC or during hospital stay patient has or had the following: CVA/TIA Diagnosis No Discharge Core Measures Meds if any: Prescribed or Continued at Discharge Meds if any: NOT Prescribed or Continued at Discharge Venous thromboembolism Inclusion Criteria VTE Diagnosis No VTE Type NONE VTE Confirmed by (Test) NONE Discharge Core Measures - Per Current guidelines, there needs to be overlap - treatment for the first 5 days of Warfarin therapy. - If discharged on Warfarin prior to 5 days of - overlap therapy, the patient will need to be - assessed for post discharge needs including - *Post discharge parental anticoagulation - *Warfarin and/or parental anticoagulation education - *Follow up date to check INR post discharge At least 5 days overlap therapy as Inpatient No Meds if any: Prescribed or Continued at Discharge Note: Overlap Therapy is Warfarin and Anticoagulant Meds if any: NOT Prescribed or Continued at Discharge
[2016-06-08] MEDS ORDERED: AUGMENTIN 875-1 EACH PO (16:29)
--- NOTE | 2016-06-08 17:11 | Cons- Urology ---
General Information and HPI Consulting Request Date of Consult: 06/08/16 Requested By: MAYTE MYERS M.D Reason for Consult: recurrent utis Source of Information: patient, family Exam Limitations: no limitations History of Present Illness: 86-year-old czech speaking female with PMH of dementia, CVA, IDDM, HTN, HLD, PVD, rec UTIs who was brought in for fever and chills. Her daughter gave the history. She had no foul smelling urine or lower urinary tract symptoms or complaints of any urinary issues. The daughter believes she was fighting a low grade UTi for some time. She typically does not have incontinence but is often constipated. She has never been to an Urologist for her UTIs. Allergies/Medications Allergies: Coded Allergies: codeine (Severe, HALLUCINATIONS, NAUSEA 06/06/16) oxycodone (From Percocet) (Severe, HALLUCINATIONS, NAUSEA 06/06/16) Sulfa (Sulfonamide Antibiotics) (N/V SEVERE 06/06/16) Home Med List: Alendronate Sodium 70 MG TABLET 1 TAB PO QMON OSTEOPOROSIS (Reported) in the morning, at least 30 minutes before the first food, beverage, or medication of the day Amlodipine Besylate 5 MG TABLET 1 TAB PO DAILY b/p (Reported) Amoxicillin/Potassium Clav (Augmentin 875-125 Tablet) 875 MG-125 MG TABLET 1 TAB PO BID urine infection CLOPIDOGREL BISULFATE (Clopidogrel) 75 MG TABLET 1 TAB PO DAILY BLOD THINNER (Reported) Docusate Sodium (Colace) 100 MG CAPSULE 1 CAP PO BID STOOL SOFTENER (Reported ) Insulin Detemir (Levemir) 100 UNIT/ML VIAL 10 U SC AT BEDTIME DIABETES ( Reported) Insulin Lispro (Humalog Kwikpen U-100) 100 UNIT/ML INSULN.PEN DM (Reported) Pantoprazole Sodium (Protonix) 40 MG GRANPKT.DR 1 TAB PO DAILY ACID REFLUX ( Reported) Polyethylene Glycol 3350 (Miralax) 17 GRAM/DOSE POWDER 17 GM PO DAILY GI ( Reported) mix with water, juice, soda, coffee or tea Pravastatin Sodium 40 MG TABLET 1 TAB PO DAILY hypercholesterolemia (Reported ) Pregabalin (Lyrica) 200 MG CAP 1 CAP PO DAILY PAIN (Reported) Ranitidine HCl 300 MG CAPSULE 1 CAP PO DAILY GI (Reported) Rivastigmine Tartrate (Rivastigmine) 6 MG CAPSULE 1 CAP PO BID MEMORY ( Reported) Sennosides (Senna) (Unknown Strength) TABLET (Unknown Dose) UNKNOWN (Reported ) Trazodone HCl 50 MG TABLET 1 TAB PO QPM sleep (Reported) Current Medications: Current Medications Sig/Rachelle Start time Last Medication Dose Route Stop Time Status Admin Acetaminophen 650 MG Q6P PRN 06/06 2115 AC PO Alendronate Sodium 70 MG QMON 06/11 0700 AC PO Amlodipine Besylate 5 MG DAILY 06/07 1000 AC 06/08 PO 1016 Bisacodyl 10 MG ONCE PRN 06/08 1030 AC 06/08 IL 1104 Ceftriaxone Sodium 1,000 MG 1700 06/07 1700 AC 06/07 IV 2003 Clopidogrel Bisulfate 75 MG DAILY 06/07 1000 AC 06/08 PO 1015 Docusate Sodium 100 MG BID 06/07 1000 AC 06/08 PO 1014 Heparin Sodium 5,000 UNIT Q8 06/06 2200 AC 06/08 (Porcine) SC 1403 Insulin Aspart 0 TIDAC 06/07 0800 AC 06/08 SC 1257 Insulin Detemir 6 UNITS QPM 06/06 2200 AC 06/07 SC 2115 Omeprazole 40 MG DAILY AC 06/07 0700 AC 06/08 PO 0605 Polyethylene Glycol 17 GM DAILY 06/08 1019 AC 06/08 PO 1257 Pravastatin Sodium 40 MG 1700 06/07 1700 AC 06/07 PO 2004 Pregabalin 200 MG DAILY 06/07 1000 AC 06/08 PO 1016 Rivastigmine Tartrate 6 MG BID 06/07 1000 AC 06/08 PO 1015 Trazodone HCl 50 MG QPM 06/06 2200 AC 06/07 PO 2115 Past History Medical History Blood Transfusion Hx: No Neurological: CVA, dementia, TIA EENT: NONE Cardiovascular: hypertension Respiratory: NONE Gastrointestinal: diverticulitis Hepatic: NONE Renal: urinary incontinence Musculoskeletal: osteoporosis Psychiatric: NONE Endocrine: diabetes Blood Disorders: NONE Cancer(s): NONE PRIVATE CLIENT ADVISOR/Reproductive: NONE Surgical History Pertinent Surgical History: AMPUTATION OF TOES HYSTERECTOMY Psychosocial History Where Do You Live? Home Who Do You Live With? child Services at Home: None Primary Language: Korean Smoking Status: Never Smoked ETOH Use: denies use Illicit Drug Use: denies illicit drug use Power of Hr Operations Advisor/HCP? yes Functional Ability ADLs Needs Assist: dressing, eating, toileting, bathing. Ambulation: walker IADLs Needs Assist: shopping, housework, finances, food prep, telephone, transportation, medication admin. Review of Systems Review of Systems Constitutional: Denies: no symptoms. EENTM: Denies: no symptoms. Cardiovascular: Denies: no symptoms. Respiratory: Denies: no symptoms. GI: Reports: constipation. Genitourinary: Denies: see HPI. Musculoskeletal: Denies: no symptoms. Skin: Denies: no symptoms. Neurological/Psychological: Denies: no symptoms. Hematologic/Endocrine: Denies: no symptoms. Immunologic/Allergic: Denies: no symptoms. Exam & Diagnostic Data Vital Signs and I&O Vital Signs Date Time Temp Pulse Resp B/P Pulse O2 O2 Flow FiO2 Ox Delivery Rate 06/08 1417 97.1 66 20 120/68 93 06/08 0811 97.7 55 20 120/70 96 06/07 2250 97.8 55 20 130/70 96 Intake & Output 06/08 1600 06/08 0800 06/08 0000 06/07 1600 06/07 0800 06/07 0000 Intake Total 600 200 530 690 150 Output Total 450 700 Balance 600 200 530 240 -550 Intake, IV 30 450 0 Intake, Oral 600 200 500 240 150 Number 0 0 Bowel Movements Output, Urine 450 700 Patient 59.421 kg Weight Physical Exam: awake and alert, using the bathroom with her daughter's help. Awake and alert, NAD abd soft ND/NT no victoria in place Physical Exam General Appearance: well developed/nourished, no apparent distress, alert, awake , comfortable Head: atraumatic, normal appearance Eyes: Bilateral: normal appearance. Ears, Nose, Throat: normal ENT inspection Neck: normal inspection Respiratory: no respiratory distress Gastrointestinal: soft, non-tender Rectal: deferred Back: normal inspection Extremities: normal inspection Neurologic/Psych: awake, alert Cranial Nerves: normal hearing, normal speech Skin: intact, normal color, warm/dry Last 24 Hours of Labs: Laboratory Tests 06/08 06/08 0635 0600 Chemistry Sodium (137 - 145 mmol/L) 138 Potassium (3.5 - 5.1 mmol/L) 3.9 Chloride (98 - 107 mmol/L) 100 Carbon Dioxide (22 - 30 mmol/L) 28 Anion Gap (5 - 16) 10 BUN (7 - 17 mg/dL) 14 Creatinine (0.5 - 1.0 mg/dL) 0.7 Estimated GFR (>60 ml/min) > 60 BUN/Creatinine Ratio (7 - 25 %) 20.0 Hematology CBC w Diff NO MAN DIFF REQ WBC (4.8 - 10.8 /CUMM) 7.2 RBC (4.20 - 5.40 /CUMM) 3.40 L Hgb (12.0 - 16.0 G/DL) 10.6 L Hct (37 - 47 %) 31.2 L MCV (81.0 - 99.0 FL) 91.6 MCH (27.0 - 31.0 PG) 31.1 H RDW (11.5 - 14.5 %) 13.0 Plt Count (130 - 400 /CUMM) 121 L MPV (7.4 - 10.4 FL) 11.0 H Gran % (42.2 - 75.2 %) 56.6 Lymphocytes % (20.5 - 51.1 %) 28.5 Monocytes % (1.7 - 9.3 %) 11.0 H Eosinophils % (0 - 5 %) 3.5 Basophils % (0.0 - 2.0 %) 0.4 Absolute Granulocytes (1.4 - 6.5 /CUMM) 4.1 Absolute Lymphocytes (1.2 - 3.4 /CUMM) 2.0 Absolute Monocytes (0.10 - 0.60 /CUMM) 0.8 H Absolute Eosinophils (0.0 - 0.7 /CUMM) 0.3 Absolute Basophils (0.0 - 0.2 /CUMM) 0 PUBS MCHC (33.0 - 37.0 G/DL) 34.0 Assessment/Plan Assessment/Plan 86 yo female with multiple med problems with a hx of recurrent UTIs. discussed with the daughter re: constipation and how it contributes to UTIs. She needs to follow up as an outpatient to be evaluated more thoroughly with possible cystoscopy and urodynamics. Recommend she be sent home on Keflex/ bactrim for one week. Take probiotics. Follow up next week as an outpatient. Consult Acknowledgment - Thank you for your consult request.
[2016-06-08] MEDS ORDERED: PROBIOTIC & AC1 EACH PO (19:11)
--- NOTE | 2016-06-08 20:19 | Discharge Summary ---
Visit Information Visit Dates Admission Date: 06/06/16 Discharge Date: 06/09/16 Hospital Course Course Attending Physician: MAYTE MYERS M.D Primary Care Physician: ALIYN MCKENNA Hospital Course: 86-year-old female with PMH dementia, CVA, IDDM, HTN, HLD, PVD, UTI with group B strep, was brought in for fever up to 102.9 and chills feeling lethargic and weak. Vitals: T102.9, P 73, RR in 20s, 132/57, saturating in high 90s well on room air. On exam: alert, responds appropriately, dry mucous membranes, heart and lung and abdominal exam benign, No extremity edema. Labs: WBC 17.6 with neutrophils 90%, hemoglobin 11.8, blood glucose 217, lactate 1.6, alkaline phosphatase 179. UA shows leukocyte esterase trace. Chest x-ray no acute processes. Vitals upon presentation WBC 17.6 with bands, UA large amount of leukocyte esterase and wbc 50-75, with negative nitrite and rare epithelial cells. She was admitted to general medicine floor for sepsis of urological origin. She was started on ceftriaxone, blood cultures and urine cultures were ordered, she remained afebrile, white count is stable, urine cultures grew Klebsiella pneumoniae sensitive to Augmentin to complete a course. She is to follow-up with Dr. Green upon discharge for further evaluation of recurrent UTIs, urine cytology was negative. We continued rivastigmine for history of dementia, amlodipine for HTN, alendronate for Osteoporosis , continued on levemir 6 at bedtime along with insulin sliding scale for diabetes, pravastatin 40 hyperlipidemia, trazodone 50 qpm Allergies: Coded Allergies: codeine (Severe, HALLUCINATIONS, NAUSEA 06/06/16) oxycodone (From Percocet) (Severe, HALLUCINATIONS, NAUSEA 06/06/16) Sulfa (Sulfonamide Antibiotics) (N/V SEVERE 06/06/16) Disposition Summary Disposition Principal Diagnosis: Sepsis of of urological origin Additional Diagnosis: Osteoporosis Hypertension Hyperlipidemia Discharge Disposition: home health services Discharge Instructions General Discharge Information Code Status: Do Not Resucitate/Intubat Patient's Diet: Pure Patient's Activity: As tolerated Follow-Up Instructions/Appts: Please follow-up with urologist and primary care physician in one week for further workup of recurrent UTIs. Medications at Discharge Discharge Medications: Continue taking these medications: Pregabalin (Lyrica) 200 MG CAP 1 Capsule ORAL DAILY Qty = 90 CLOPIDOGREL BISULFATE (Clopidogrel) 75 MG TABLET 1 Tablet ORAL DAILY Qty = 90 Insulin Detemir (Levemir) 100 UNIT/ML VIAL 10 Units Inject into fatty tissue AT BEDTIME Qty = 10 Docusate Sodium (Colace) 100 MG CAPSULE 1 Capsule ORAL TWICE DAILY Comments: Last Taken: 06/09 Time: 9AM Polyethylene Glycol 3350 (Miralax) 17 GRAM/DOSE POWDER 17 Gram ORAL DAILY Instructions: mix with water, juice, soda, coffee or tea Pravastatin Sodium (Pravastatin Sodium) 40 MG TABLET 1 Tablet ORAL DAILY Qty = 30 Comments: Last Taken: 06/08 Time: 6PM Amlodipine Besylate (Amlodipine Besylate) 5 MG TABLET 1 Tablet ORAL DAILY Qty = 30 Comments: Last Taken: 06/09 Time: 9AM Trazodone HCl (Trazodone HCl) 50 MG TABLET 1 Tablet ORAL Every night Qty = 90 Comments: Last Taken: 06/08 Time: 9PM Pantoprazole Sodium (Protonix) 40 MG GRANPKT.DR 1 Tablet ORAL DAILY Comments: Last Taken: NOT GIVEN IN HOSPITAL Time: Alendronate Sodium (Alendronate Sodium) 70 MG TABLET 1 Tablet ORAL EVERY SATURDAY Instructions: in the morning, at least 30 minutes before the first food, beverage, or medication of the day Comments: Last Taken: 06/09 Time: 7AM Ranitidine HCl (Ranitidine HCl) 300 MG CAPSULE 1 Capsule ORAL DAILY Qty = 30 Comments: Last Taken: NOT GIVEN IN HOSPITAL Time: Insulin Lispro (Humalog Kwikpen U-100) 100 UNIT/ML INSULN.PEN Units Inject into fatty tissue BEFORE MEALS AND AT BEDTIME Qty = 15 Comments: NOT GIVEN IN HOSPITAL Sennosides (Senna) (Unknown Strength) TABLET Unknown Dose Qty = 30 Comments: Last Taken: NOT GIVEN IN HOSPITAL Time: Rivastigmine Tartrate (Rivastigmine) 6 MG CAPSULE 1 Capsule ORAL TWICE DAILY Qty = 60 Comments: Last Taken: 06/09 Time: 9AM Start taking the following new medications: Lactobac Cmb #3/Fos/Pantethine (Probiotic & Acidophilus Cap) 300MM-250 CAPSULE 1 Capsule ORAL DAILY Days = 14 No Refills Bisacodyl (Bisac-Evac) 10 MG SUPP.RECT 10 Milligram RECTALLY GIVE ONCE as needed for CONSTIPATION Days = 30 No Refills Amoxicillin/Potassium Clav (Augmentin 875-125 Tablet) 875 MG-125 MG TABLET 1 Tablet ORAL TWICE DAILY Days = 10 No Refills Nystatin (Nystatin) 100,000 UNIT/ML ORAL.SUSP 5 Milliliters ORAL 4 TIMES A DAY Days = 7 No Refills Copies To: MUNIR MYERS M.D, MD,AILYN RANGEL Attending MD Review Statement Documenting Attending: MAYTE MYERS M.D Other Findings: I have reviewed the discharge summary.
[2016-06-08 22:12] VITALS: BP 150/50
[2016-06-09 06:36] VITALS: BP 120/60
--- NOTE | 2016-06-09 08:59 | PN- Housestaff ---
See Addendum Subjective Follow-up For: urinary tract infection Subjective: Patient seen and examined with daughter at bedside. She is sitting comfortably in chair with no new complaints. Apperas to be in no acute distress. Continues to deny urinary complaints, fever/chills. Daughter would like nystatin oral suspension and suppositories to go home with. She understands the need for follow up with Dr. Green in a week. Review of Systems Constitutional: Reports: see HPI. Objective Last 24 Hrs of Vital Signs/I&O Vital Signs Date Time Temp Pulse Resp B/P Pulse O2 O2 Flow FiO2 Ox Delivery Rate 06/09 0636 97.8 58 20 120/60 96 Room Air 06/08 2212 98.6 58 20 150/50 96 Room Air 06/08 1417 97.1 66 20 120/68 93 Intake & Output 06/09 1600 06/09 0800 06/09 0000 Intake Total Output Total Balance Patient 59.421 kg Weight Physical Exam General Appearance: Alert, Oriented X3, Cooperative, No Acute Distress Other Physical Findings: Cardiovascular: Regular Rate, Normal S1, Normal S2, No Murmurs Lungs: Clear to Auscultation, Normal Air Movement Abdomen: Normal Bowel Sounds, Soft, No Tenderness Extremities: No Clubbing, No Cyanosis, No Edema Current Medications: Current Medications Sig/Rachelle Start time Last Medication Dose Route Stop Time Status Admin Acetaminophen 650 MG Q6P PRN 06/06 2115 AC PO Alendronate Sodium 70 MG QMON 06/11 0700 AC PO Amlodipine Besylate 5 MG DAILY 06/07 1000 AC 06/08 PO 1016 Bisacodyl 10 MG ONCE PRN 06/08 1030 AC 06/08 ND 1104 Ceftriaxone Sodium 1,000 MG 1700 06/07 1700 AC 06/08 IV 1808 Clopidogrel Bisulfate 75 MG DAILY 06/07 1000 AC 06/08 PO 1015 Docusate Sodium 100 MG BID 06/07 1000 AC 06/08 PO 2132 Heparin Sodium 5,000 UNIT Q8 06/06 2200 AC 06/09 (Porcine) SC 0604 Insulin Aspart 0 TIDAC 06/07 0800 AC 06/08 SC 1257 Insulin Detemir 6 UNITS QPM 06/06 2200 AC 06/08 SC 2130 Lactobacillus 1 CAP DAILY 06/08 1857 AC 06/08 Acidophilus PO 2132 Omeprazole 40 MG DAILY AC 06/07 0700 AC 06/09 PO 0603 Polyethylene Glycol 17 GM DAILY 06/08 1019 AC 06/08 PO 1257 Pravastatin Sodium 40 MG 1700 06/07 1700 AC 06/08 PO 1807 Pregabalin 200 MG DAILY 06/07 1000 AC 06/08 PO 1016 Rivastigmine Tartrate 6 MG BID 06/07 1000 AC 06/08 PO 2131 Trazodone HCl 50 MG QPM 06/06 2200 AC 06/08 PO 2132 Assessment/Plan Assessment: 86-year-old female with PMH dementia, CVA, IDDM, HTN, HLD, PVD, UTI with group B strep, was brought in for fever up to 102.9 and chills. Labs significant for WBC 17.6 with bands, UA large amount of leukocyte esterase and wbc 50-75, with negative nitrite and rare epithelial cells. She is admitted to general medicine floor for sepsis of urological origin. # Sepsis of urological origin Afebrile, WBC trending down, lactic acid normal, have ordered urine cytology. * Discharge on Augmentin today (Ucx sensitive to Augmentin) * Urology recommended Bactrim/Keflex, however patient is reportedly allergic to Bactrim # Dementia * Continue rivastigmine 6 bid # DM * Continue lyrica 200 mg * accucheck * levemir 6 at bedtime (as per daughter) * insulin ss # Osteoporosis * Continue alendronate 70 q saturday # HTN * Continue amlodipine 5 # HLD * Continue statin (pravastatin 40 at home) # Hx of CVA * Continue plavix 75 daily # GI * Continue protonix 40 * Continue ranitidine 300 mg # Constipation * Continue docusate * Continue miralax * Continue senna # Sleep * Continue trazodone 50 qpm Diet: puree DVT ppx: mech and pharm Problem List: 1. UTI (urinary tract infection) 2. Leukocytosis Pain Ratin Pain Location: 0 Pain Goal: Remain pain free Pain Plan: Mild pathway Tomorrow's Labs & Rationales: None
[2016-06-09] MEDS ORDERED: NYSTATIN100000 UNI PO (10:21)
[2016-06-09] MEDS ORDERED: BISAC-EVAC10 M1 PR (10:21)
[2016-06-09 14:53] VITALS: BP 120/60
== END 2016-06-09 15:48 | disposition home health service (06) | DRG 872 ==
LOC: ERH 13:39 → ERHI 17:32 → 2NA 17:32 → ERHI 22:36 → 2NA 06-07 16:17
PROVIDERS: Emergency Medicine; Internal Medicine Hematology & Oncology; Student in an Organized Health Care Education/Training Program; ADMIT Internal Medicine
DX: A41.9 Sepsis, unspecified organism (principal); F03.90 Unspecified dementia, unspecified severity, without behavioral disturbance, psychotic disturbance, mood disturbance, and anxiety; N39.0 Urinary tract infection, site not specified; E11.9 Type 2 diabetes mellitus without complications; Z79.4 Long term (current) use of insulin; Z86.73 Personal history of transient ischemic attack (TIA), and cerebral infarction without residual deficits; I10 Essential (primary) hypertension; E78.5 Hyperlipidemia, unspecified; I73.9 Peripheral vascular disease, unspecified
CPT/HCPCS: 2NAP; ERO; 36415; 81001; 82436; 87040; 87086; 87147; 87804; 87804-59; 88305; 93005; 93010; 96374; 97001-GP; 97003-GO; 97110-GO; 97116-GO; 97162-GP; 97165-GO; J0696; J1644; J1885

== ENCOUNTER 2016-07-05 10:08 | Emergency (ER) | payer OTHER, MEDICARE ==
[~2016-07-05] VITALS: Ht 157.5 cm; Wt 59.9 kg
[~2016-07-05 10:08] MED LIST changes: +ALENDRONATE SOD70 M2 PO; +AUGMENTIN 875-1 EACH PO; +BISAC-EVAC10 M1 PR; +HUMALOG KW100 UNIT/1 SC; +NYSTATIN100000 UNI PO; +PROBIOTIC & AC1 EACH PO; +SENNA8.6 M3
[2016-07-05 11:47] LABS: ABSOLUTE BASOPHIL COUNT 0 /CUMM (0.0-0.2); ABSOLUTE EOSINOPHIL COUNT 0.2 /CUMM (0.0-0.7); ABSOLUTE GRANULOCYTE CT 4.1 /CUMM (1.4-6.5); ABSOLUTE LYMPH COUNT 1.5 /CUMM (1.2-3.4); ABSOLUTE MONOCYTE COUNT 0.5 /CUMM (0.10-0.60); BASOPHIL % 0.5 % (0.0-2.0); EOSINOPHIL % 3.7 % (0-5); GRANULOCYTE % 64.1 % (42.2-75.2); HEMATOCRIT 36.8 % (37-47); MEAN CORPUSCULAR HGB 30.5 PG (27.0-31.0); MEAN CORPUSCULAR HGB CONC 33.3 G/DL (33.0-37.0); MEAN CORPUSCULAR VOLUME 91.7 FL (81.0-99.0); MEAN PLATELET VOLUME 10.6 FL (7.4-10.4); PLATELET COUNT 159 /CUMM (130-400); RBC DISTRIBUTION WIDTH 12.8 % (11.5-14.5); RED BLOOD CELL CT 4.01 /CUMM (4.20-5.40); WHITE BLOOD CELL COUNT 6.3 /CUMM (4.8-10.8)
[2016-07-05] MEDS ORDERED: HYDRALAZINE HCL25 M1 PO (11:58)
--- NOTE | 2016-07-05 12:18 | ED GENERAL ADULT ---
History of Present Illness General Chief Complaint: General Adult Stated Complaint: SIB MD MCKENNA ?HIGH POTASSIUM Source: patient, family Exam Limitations: dementia Allergies Coded Allergies: codeine (Severe, HALLUCINATIONS, NAUSEA 06/06/16) oxycodone (From Percocet) (Severe, HALLUCINATIONS, NAUSEA 06/06/16) Sulfa (Sulfonamide Antibiotics) (N/V SEVERE 06/06/16) Triage Note: 86 Y/O FEMALE BROUGHT IN BY FAMILY FOR EVAL OF ? HIGH POTASSIUM. DAUGHTER STATES PT WAS EVAL'D AT THE CLINIC YESTERDAY AND THEY RECEVIED CALL TODAY STATING HER POTASSIUM "WAS VERY HIGH, 5.3 I THINK". PT WITH HX DEMENTIA: SMILING IN TRIAGE WITH NO DISTRESS NOTED. FAMILY REPORTS NORMAL APPETITE/PO INTAKE. AFEBRILE. Triage Nurses Notes Reviewed? yes HPI: 86-year-old female with history of dementia, MT, diabetes, TIA here with her daughter who is the primary historian with complaints of hyperkalemia. She was seen by PCP yesterday and she was complaining of increased confusion earlier in the week, and was called today because of the elevated potassium of, 5.3 per the daughter. They were sent here to the ER for further evaluation of this. She has had polyuria for one week denies dysuria. She has a pressure sore her left sacral region which has been healing well per daughter orbit is mildly painful. Denies chest pain shortness of breath abdominal pain fever vomiting. (RIVERA FIELD) Vital Signs & Intake/Output Vital Signs & Intake/Output Vital Signs Date Time Temp Pulse Resp B/P Pulse O2 O2 Flow FiO2 Ox Delivery Rate 07/05 1346 98.2 60 20 179/72 98 Room Air 07/05 1015 97.1 60 16 135/53 94 Room Air Reconcile Medications Alendronate Sodium 70 MG TABLET 1 TAB PO QMON OSTEOPOROSIS (Reported) in the morning, at least 30 minutes before the first food, beverage, or medication of the day Amlodipine Besylate 5 MG TABLET 1 TAB PO DAILY b/p (Reported) Amoxicillin/Potassium Clav (Augmentin 875-125 Tablet) 875 MG-125 MG TABLET 1 TAB PO BID UTI Bisacodyl (Bisac-Evac) 10 MG SUPP.RECT 10 MG TX ONCE PRN CONSTIPATION Ciprofloxacin HCl (Cipro) 250 MG TABLET 1 TAB PO BID UTI CLOPIDOGREL BISULFATE (Clopidogrel) 75 MG TABLET 1 TAB PO DAILY BLOD THINNER (Reported) Docusate Sodium (Colace) 100 MG CAPSULE 1 CAP PO BID STOOL SOFTENER (Reported ) Hydralazine HCl 25 MG TABLET 1 TAB PO BID HEART (Reported) Insulin Detemir (Levemir) 100 UNIT/ML VIAL 10 U SC AT BEDTIME DIABETES ( Reported) Insulin Lispro (Humalog Kwikpen U-100) 100 UNIT/ML INSULN.PEN DM (Reported) Lactobac Cmb #3/Fos/Pantethine (Probiotic & Acidophilus Cap) 300MM-250 CAPSULE 1 CAP PO DAILY PROBIOTICS Nystatin 100,000 UNIT/ML ORAL.SUSP 5 ML PO 4 TIMES/DAY THRUSH Pantoprazole Sodium (Protonix) 40 MG GRANPKT.DR 1 TAB PO DAILY ACID REFLUX ( Reported) Polyethylene Glycol 3350 (Miralax) 17 GRAM/DOSE POWDER 17 GM PO DAILY GI ( Reported) mix with water, juice, soda, coffee or tea Pravastatin Sodium 40 MG TABLET 1 TAB PO DAILY hypercholesterolemia (Reported ) Pregabalin (Lyrica) 200 MG CAP 1 CAP PO DAILY PAIN (Reported) Ranitidine HCl 300 MG CAPSULE 1 CAP PO DAILY GI (Reported) Rivastigmine Tartrate (Rivastigmine) 6 MG CAPSULE 1 CAP PO BID MEMORY ( Reported) Trazodone HCl 50 MG TABLET 1 TAB PO QPM sleep (Reported) (JACOBO STERLING,JEFF Parker) Past History Travel History Traveled to [place] past 21 day No Medical History Any Pertinent Medical History? 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 No (RIVERA FIELD) Review of Systems Review of Systems Constitutional: Reports: see HPI (limited due to dementia). (RIVERA FIELD) Physical Exam Physical Exam General Appearance: well developed/nourished Comments: Well-developed well-nourished, elderly female, looks stated age, pleasantly confused HEENT: Normal EENT exam, extraocular motion intact, no nystagmus. Pupils equally round and reactive to light. Nose is atraumatic. External auditory canal and Tympanic membranes clear. Pharynx normal. No swelling or edema. Neck: Supple, no lymphadenopathy, normal range of motion without pain or tenderness Back: Nontender, no CVA tenderness. Full range of motion Cardiovascular: Regular rate and rhythms no murmurs, normal JVP Respiratory: Chest nontender. No respiratory distress. Breath sounds clear to auscultation bilaterally Abdomen: Soft, nontender nondistended, no appreciable organomegaly. Normal bowel sounds. No ascites Extremity: No edema, no calf tenderness to palpation, normal and equal pulses. Neuro: Alert and mildly confused, motor sensory normal, cranial nerves II through XII grossly intact. Skin: No appreciable rash on exposed skin, skin is warm and dry. Psych: Mood and affect is normal, per daughter Core Measures ACS in differential dx? No CVA/TIA Diagnosis: No Severe Sepsis Present: No Septic Shock Present: No (RIVERA FIELD) Progress Differential Diagnoses I considered the following diagnoses in my evaluation of the patient: Hyperkalemia sepsis UTI worsening dementia laboratory error Initial ED EKG: NSR, rate (56), no ST T wave changes Prior EKG: unchanged Rhythm Strip: normal sinus rhythm Comments: Laboratory values rechecked, potassium 4.8, no changes on EKG. Discussed with the patient and daughter and primary care doctor, Dr. US. Patient's sugar is elevated to 311, she is given 4 units of regular insulin subcutaneous. Urinalysis obtained as well. Discussed with family and patient that her symptoms are likely due to elevated blood sugar, they're to ensure they're giving her the proper amount of insulin and follow-up with the primary care doctor closely. Urinalysis shows leukocytes and white blood cells. Culture obtained and is pending. We'll start on antibiotics for presumed urinary tract infection. Discussed with patient and family (RIVERA FIELD) Plan of Care: Orders Procedure Date/time Status CULTURE,URINE 07/05 1120 Active URINALYSIS 07/05 1120 Complete MAGNESIUM 07/05 1106 Complete COMPREHENSIVE METABOLIC PANEL 07/05 1106 Complete CBC WITHOUT DIFFERENTIAL 07/05 1106 Complete EKG 07/05 1106 Active Laboratory Tests 07/05/16 1147: Urinalysis LIGHT H, Urine Color YEL, Urine Clarity HAZY H, Urine pH 6.5, Ur Specific [place] 1.015, Urine Protein TRACE H, Urine Ketones NEG, Urine Nitrite NEG, Urine Bilirubin NEG, Urine Urobilinogen 0.2, Ur Leukocyte Esterase MOD H, Ur Microscopic SEDIMENT EXAMINED, Urine RBC 1-3, Urine WBC 50-75 H, Ur Epithelial Cells FEW, Urine Hemoglobin TRACE-INTACT, Urine Glucose 100 H 07/05/16 1138: Anion Gap 7, Estimated GFR 60, BUN/Creatinine Ratio 24.4, Glucose 311 H, Calcium 8.9, Magnesium 2.2, Total Bilirubin 0.5, AST 23, ALT 27, Alkaline Phosphatase 125, Total Protein 6.9, Albumin 3.7, Globulin 3.2, Albumin/Globulin Ratio 1.2, CBC w Diff NO MAN DIFF REQ, RBC 4.01 L, MCV 91.7, MCH 30.5, RDW 12.8 , MPV 10.6 H, Gran % 64.1, Lymphocytes % 23.6, Monocytes % 8.1, Eosinophils % 3.7, Basophils % 0.5, Absolute Granulocytes 4.1, Absolute Lymphocytes 1.5, Absolute Monocytes 0.5, Absolute Eosinophils 0.2, Absolute Basophils 0, PUBS MCHC 33.3 Microbiology 07/05 1147 URINE ROUT: Urine Culture - RECD Departure Departure Disposition: HOME OR SELF CARE Condition: Stable Clinical Impression Primary Impression: UTI (urinary tract infection) Qualifiers: Urinary tract infection type: acute cystitis Hematuria presence: without hematuria Qualified Code: N30.00 - Acute cystitis without hematuria Secondary Impressions: H/O hyperkalemia, Hyperglycemia Referrals: AILYN MCKENNA (PCP/Family) Additional Instructions: Please monitor blood sugar closely and give insulin as directed. Follow-up with primary care doctor in 1-2 weeks Departure Forms: Customer Survey General Discharge Information (RIVERA FIELD) Departure Prescriptions: Current Visit Scripts Ciprofloxacin HCl (Cipro) 1 TAB PO BID #14 TAB Amoxicillin/Potassium Clav (Augmentin 875-125 Tablet) 1 TAB PO BID #14 TAB PA/FOOD PRODUCT INSPECTOR Co-Sign Statement Statement: ED Attending supervision documentation- [X] I saw and evaluated the patient. I have also reviewed all the pertinent lab results and diagnostic results. I agree with the findings and the plan of care as documented in the PA's/FOOD PRODUCT INSPECTOR's documentation. [] I have reviewed the ED Record and agree with the PA's/FOOD PRODUCT INSPECTOR's documentation. [] Additions or exceptions (if any) to the PAs/FOOD PRODUCT INSPECTOR's note and plan are summarized below: [] (JACOBO STERLING,JEFF Parker) Critical Care Note Critical Care Note Critical Care Time: non-applicable (NATY ALLEN,RIVERA)
[2016-07-05] MEDS ORDERED: CIPRO250 M1 PO (13:32)
[2016-07-05 13:46] VITALS: BP 179/72
[2016-07-05] MEDS ORDERED: AUGMENTIN 875-1 EACH PO (13:51)
== END 2016-07-05 14:09 ==
LOC: ERH 10:08
PROVIDERS: Physician Assistant Surgical
DX: N39.0 Urinary tract infection, site not specified (principal); E11.9 Type 2 diabetes mellitus without complications
CPT/HCPCS: 81001; 87086; 87147; 93005; 93010; 96372

== ENCOUNTER 2016-10-25 15:33 | Emergency (ER) | payer OTHER, MEDICARE ==
[~2016-10-25] VITALS: Ht 157.5 cm; Wt 59.4 kg
[~2016-10-25 15:33] MED LIST changes: +CIPRO250 M1 PO; +HYDRALAZINE HCL25 M1 PO
--- NOTE | 2016-10-25 15:56 | ED GENERAL ADULT ---
History of Present Illness General Chief Complaint: General Adult Stated Complaint: HIGH BP, LETHARGIC, PALE,COLD, PER FAMILY Source: patient Exam Limitations: dementia, language barrier Vital Signs & Intake/Output Vital Signs & Intake/Output Vital Signs Date Time Temp Pulse Resp B/P B/P Pulse O2 O2 Flow FiO2 Mean Ox Delivery Rate 10/25 1910 97.6 61 18 168/52 98 Room Air 10/25 1743 96.8 60 16 168/56 99 Room Air 10/25 1740 99 10/25 1653 66 18 200/58 99 Room Air 10/25 1627 97.5 58 16 204/72 10/25 1541 204/72 10/25 1540 97.5 58 16 170/107 98 Room Air Allergies Coded Allergies: codeine (Severe, HALLUCINATIONS, NAUSEA 06/06/16) oxycodone (From Percocet) (Severe, HALLUCINATIONS, NAUSEA 06/06/16) Sulfa (Sulfonamide Antibiotics) (N/V SEVERE 06/06/16) Reconcile Medications Alendronate Sodium 70 MG TABLET 1 TAB PO QMON OSTEOPOROSIS (Reported) in the morning, at least 30 minutes before the first food, beverage, or medication of the day Cephalexin 250 MG CAPSULE 1 CAP PO QAM PROPHYLAXIS UTI (Reported) Cholecalciferol (Vitamin D3) (Vitamin D) (Unknown Strength) TABLET (Unknown Dose) PO DAILY SUPPLEMENT (Reported) Clopidogrel Bisulfate (Clopidogrel) 75 MG TABLET 1 TAB PO DAILY BLOOD THINNER (Reported) Cyanocobalamin (Vitamin B-12) (Unknown Strength) TABLET (Unknown Dose) PO DAILY SUPPLEMENT (Reported) Docusate Sodium (Colace) 100 MG CAPSULE 1 CAP PO BID STOOL SOFTENER (Reported ) Hydralazine HCl 25 MG TABLET 1 TAB PO BID HEART (Reported) Hydralazine HCl 50 MG TABLET 1 TAB PO BID htn Insulin Detemir (Levemir Flextouch) 100 UNIT/ML (3 ML) INSULN.PEN 6 UNITS SC QPM DM (Reported) Insulin Lispro (Humalog Kwikpen U-100) 100 UNIT/ML INSULN.PEN DM (Reported) Multivitamin (Multi-Day Vitamins) 1 EACH TABLET 1 TAB PO DAILY SUPPLEMENT ( Reported) Pravastatin Sodium 40 MG TABLET 1 TAB PO DAILY hypercholesterolemia (Reported ) Pregabalin (Lyrica) 200 MG CAPSULE 1 CAP PO DAILY NERVE PAIN (Reported) Ranitidine HCl (Acid Secretary) 150 MG TABLET 1 TAB PO BID GI (Reported) Rivastigmine Tartrate (Rivastigmine) 6 MG CAPSULE 1 CAP PO BID MEMORY ( Reported) Sennosides (Senna) 8.6 MG TABLET 0.5 TAB PO QPM GI (Reported) Sertraline HCl 25 MG TABLET 1 TAB PO DAILY DEPRESSION (Reported) Trazodone HCl 50 MG TABLET 1.5 TAB PO QPM sleep (Reported) Triage Note: 86 Y/O FEMALE BROUGHT BY FAMILY FOR EVAL OF WEAKNESS AND HYPERTENSION SINCE LAST NIGHT; FAMILY REPORT PT WAS UP ALL NIGHT PACING IN HOUSE. DENIES PAIN AND DENIES CHANGES IN APPETITE/PO INTAKE. HX UTIS AND FAMILY QUESTIONING ANOTHER UTI - CURRENTLY ON DAILY ANTIBIOTICS FOR PREVENTION OF UTI. 170/107 IN TRIAGE Triage Nurses Notes Reviewed? yes Onset: Abrupt Duration: day(s): (1), constant, continues in ED Timing: recent history Injury Environment: home No Modifying Factors: none HPI: 86-year-old female brought into emergency room for evaluation of high blood pressure. Patient has dementia and is British-speaking. Daughter reports that she took her blood pressure home and it was very elevated at 220. She reports that her mother did not sleep last night and was restless and walking around. She denies any chest pain. Denies any shortness of breath. Denies any headache vomiting. Denies any abdominal pain. Currently denies any symptoms. History is very limited. (RAEANN CORDERO) Past History Travel History Traveled to [place] past 21 day No Medical History Any Pertinent Medical History? 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 No (RAEANN CORDERO) Review of Systems Review of Systems Constitutional: Reports: see HPI. EENTM: Reports: no symptoms. Respiratory: Reports: no symptoms. Cardiovascular: Reports: see HPI. GI: Reports: no symptoms. Genitourinary: Reports: no symptoms. Musculoskeletal: Reports: no symptoms. Skin: Reports: no symptoms. Neurological/Psychological: Reports: no symptoms. Hematologic/Endocrine: Reports: no symptoms. Immunologic/Allergic: Reports: no symptoms. All Other Systems: Reviewed and Negative (RAEANN CORDERO) Physical Exam Physical Exam General Appearance: well developed/nourished, alert, awake Head: atraumatic, normal appearance Eyes: Bilateral: normal appearance, EOMI. Ears, Nose, Throat: normal pharynx, normal ENT inspection Neck: normal inspection Respiratory: normal breath sounds, no respiratory distress Cardiovascular: regular rate/rhythm Gastrointestinal: soft, non-tender Back: normal inspection Extremities: normal inspection, normal range of motion, no edema Neurologic/Psych: no motor/sensory deficits, awake, alert, oriented x 3, normal gait, normal mood/affect, building drafter II-XII nml as tested Skin: intact, normal color Core Measures ACS in differential dx? Yes CVA/TIA Diagnosis: No Severe Sepsis Present: No Septic Shock Present: No (RAEANN CORDERO) Progress Differential Diagnoses I considered the following diagnoses in my evaluation of the patient: Hypertensive urgency, hypertensive emergency, end organ damage, Plan of Care: Orders Procedure Date/time Status Telemetry/Hotel Recreational Facilities Manager 10/25 1555 Active URINALYSIS 10/25 1555 Complete TROPONIN LEVEL 10/25 1547 Complete COMPREHENSIVE METABOLIC PANEL 10/25 1547 Complete CBC WITHOUT DIFFERENTIAL 10/25 1547 Complete EKG 10/25 1547 Active Laboratory Tests 10/25/16 1640: Urine Color YEL, Urine Clarity CLEAR, Urine pH 7.0, Ur Specific [place] 1.010, Urine Protein NEG, Urine Ketones NEG, Urine Nitrite NEG, Urine Bilirubin NEG, Urine Urobilinogen 0.2, Ur Leukocyte Esterase TRACE H, Ur Microscopic SEDIMENT EXAMINED, Urine RBC RARE, Urine WBC 1-3 H, Ur Epithelial Cells RARE, Urine Bacteria RARE H, Urine Mucus RARE, Urine Hemoglobin NEG, Urine Glucose 100 H 10/25/16 1625: Anion Gap 10, Estimated GFR > 60, BUN/Creatinine Ratio 25.0, Glucose 216 H, Calcium 9.1, Total Bilirubin 0.4, AST 48 H, ALT 47, Alkaline Phosphatase 180 H , Troponin I < 0.01, Total Protein 7.6, Albumin 4.0, Globulin 3.6, Albumin/ Globulin Ratio 1.1, CBC w Diff NO MAN DIFF REQ, RBC 4.11 L, MCV 90.4, MCH 29.8, RDW 13.0, MPV 10.6 H, Gran % 64.7, Lymphocytes % 21.7, Monocytes % 8.3, Eosinophils % 5.0, Basophils % 0.3, Absolute Granulocytes 5.3, Absolute Lymphocytes 1.8, Absolute Monocytes 0.7 H, Absolute Eosinophils 0.4, Absolute Basophils 0, PUBS MCHC 33.0 Initial ED EKG: normal intervals, normal p-waves, normal sinus rhythm, rate (57) Prior EKG: unchanged (RAEANN CORDERO) Departure Departure Disposition: HOME OR SELF CARE Condition: Stable Clinical Impression Primary Impression: Hypertension Referrals: AILYN MCKENNA (PCP/Family) Additional Instructions: Increased blood pressure medication to 50 mg twice a day. A new prescription has been sent to the pharmacy. Follow-up with Dr. Jiménez this week. You can use the rest of your blood pressure medication by taking 2 tablets of the 25 mg twice a day until prescription runs out and then start the 50 mg twice a day after that. Please go over all results of today's visit with your primary care doctor. Contact your primary care doctor to let them know you were here in the emergency room. There may be nonspecific findings which may not be related to your visit today here in the emergency room but may require further evaluation and chronic monitoring by your primary care doctor. If you had a laceration today the chance of foreign body always remains. You should follow-up with your primary care doctor for recheck in 3-5 days for a wound check. If you had an x-ray done there is a chance that a fracture could have been missed on initial read and you should follow-up with your primary care doctor for repeat x-rays if symptoms persist. If your blood pressure was elevated here in the emergency room please have rechecked by her primary care doctor within the next 48 hours by your primary care doctor. If you were prescribed a narcotic here in the emergency room or any type of controlled substances you're not allowed to drive while taking this medication or operate any type of heavy machinery. Narcotics can make you feel lightheaded dizziness nausea and can cause constipation. You may need to flower picker a stool softener. Thank you for choosing [facility] emergency room. Please return to the emergency room immediately if you have any other concerns worsening of symptoms. Departure Forms: Customer Survey General Discharge Information Prescriptions: Current Visit Scripts Hydralazine HCl 1 TAB PO BID #60 TAB Comments 10/25/2016 7:54:41 PM Case was discussed with Dr. Jiménez. Patient will be increased on hydralazine to 50 mg twice a day. Case was discussed with Dr. Novak. Patient clinically looks well. Blood pressure is improved. Understands and agrees a plan of care. Daughter was educated on changes in doses and understands the plan of care. Return if any other concerns worsening symptoms. (RAEANN CORDERO) PA/LINE PAINTING MACHINE OPERATOR Co-Sign Statement Statement: ED Attending supervision documentation- [X] I saw and evaluated the patient. I have also reviewed all the pertinent lab results and diagnostic results. I agree with the findings and the plan of care as documented in the PA's/LINE PAINTING MACHINE OPERATOR's documentation. [X] I have reviewed the ED Record and agree with the PA's/LINE PAINTING MACHINE OPERATOR's documentation. [] Additions or exceptions (if any) to the PAs/LINE PAINTING MACHINE OPERATOR's note and plan are summarized below: [] (NOREEN STERLING,GERMÁN Dominguez) Critical Care Note Critical Care Note Critical Care Time: non-applicable (RAEANN CORDERO)
[2016-10-25] MEDS ORDERED: ACID REDUCER150 MG PO (16:18)
[2016-10-25] MEDS ORDERED: SENNA8.6 M3 PO (16:19)
[2016-10-25] MEDS ORDERED: CEPHALEXIN250 M2 PO (16:20)
[2016-10-25] MEDS ORDERED: SERTRALINE HCL25 MG PO (16:20)
[2016-10-25] MEDS ORDERED: VITAMIN D2000 UNI1 PO (16:21)
[2016-10-25] MEDS ORDERED: MULTI-DAY VITA1 EACH PO (16:22)
[2016-10-25] MEDS ORDERED: VITAMIN B-121000 MC3 PO (16:22)
[2016-10-25 16:37] LABS: ABSOLUTE BASOPHIL COUNT 0 /CUMM (0.0-0.2); ABSOLUTE EOSINOPHIL COUNT 0.4 /CUMM (0.0-0.7); ABSOLUTE GRANULOCYTE CT 5.3 /CUMM (1.4-6.5); ABSOLUTE LYMPH COUNT 1.8 /CUMM (1.2-3.4); ABSOLUTE MONOCYTE COUNT 0.7 /CUMM (0.10-0.60); BASOPHIL % 0.3 % (0.0-2.0); GRANULOCYTE % 64.7 % (42.2-75.2); HEMATOCRIT 37.2 % (37-47); MEAN CORPUSCULAR HGB 29.8 PG (27.0-31.0); MEAN CORPUSCULAR VOLUME 90.4 FL (81.0-99.0); MEAN PLATELET VOLUME 10.6 FL (7.4-10.4); PLATELET COUNT 170 /CUMM (130-400); RED BLOOD CELL CT 4.11 /CUMM (4.20-5.40); WHITE BLOOD CELL COUNT 8.2 /CUMM (4.8-10.8)
[2016-10-25] MEDS ORDERED: HYDRALAZINE HCL50 M1 PO (19:01)
[2016-10-25 19:10] VITALS: BP 168/52
== END 2016-10-25 19:40 ==
LOC: ERH 15:33
PROVIDERS: Physician Assistant Medical
DX: I10 Essential (primary) hypertension (principal); R53.83 Other fatigue; F03.90 Unspecified dementia, unspecified severity, without behavioral disturbance, psychotic disturbance, mood disturbance, and anxiety; E11.9 Type 2 diabetes mellitus without complications; Z79.4 Long term (current) use of insulin
CPT/HCPCS: 81001; 93005; 93010; 96374; J0360

== ENCOUNTER 2016-10-29 18:37 | Observation (INO) | payer OTHER, MEDICARE ==
[~2016-10-29] VITALS: Ht 157.5 cm; Wt 59.4 kg
[~2016-10-29 18:37] MED LIST changes: +ACID REDUCER150 MG PO; +CEPHALEXIN250 M2 PO; +HYDRALAZINE HCL50 M1 PO; +MULTI-DAY VITA1 EACH PO; +SENNA8.6 M3 PO; +SERTRALINE HCL25 MG PO; +VITAMIN B-121000 MC3 PO; +VITAMIN D2000 UNI1 PO
--- NOTE | 2016-10-29 19:26 | ED GENERAL ADULT ---
History of Present Illness General Chief Complaint: General Adult Stated Complaint: PER FAMILY HIGH BP Source: patient, family Exam Limitations: no limitations Vital Signs & Intake/Output Vital Signs & Intake/Output Vital Signs Date Time Temp Pulse Resp B/P B/P Pulse O2 O2 Flow FiO2 Mean Ox Delivery Rate 10/30 0020 96.8 58 16 110/56 99 Room Air 10/29 2344 96.8 58 18 107/56 98 Room Air 10/29 2246 56 158/56 99 Room Air 10/29 2210 58 189/79 99 Room Air 10/29 2209 58 189/79 10/29 2209 58 189/79 10/29 2148 57 196/81 99 Room Air 10/29 2124 52 18 218/78 10/29 212 52 18 218/78 98 Room Air 10/29 204 53 18 218/86 10/29 204 53 18 218/86 98 Room Air 10/29 1843 96.3 56 20 208/72 96 Room Air ED Intake and Output 10/30 0000 10/29 1200 Intake Total 0 Output Total Balance 0 Intake, Oral 0 Patient 131 lb Weight Weight Estimated Measurement Method Allergies Coded Allergies: codeine (Severe, HALLUCINATIONS, NAUSEA 06/06/16) oxycodone (From Percocet) (Severe, HALLUCINATIONS, NAUSEA 06/06/16) Sulfa (Sulfonamide Antibiotics) (N/V SEVERE 06/06/16) Reconcile Medications Alendronate Sodium 70 MG TABLET 1 TAB PO QMON OSTEOPOROSIS (Reported) in the morning, at least 30 minutes before the first food, beverage, or medication of the day Cephalexin 250 MG CAPSULE 1 CAP PO QAM PROPHYLAXIS UTI (Reported) Cholecalciferol (Vitamin D3) (Vitamin D) (Unknown Strength) TABLET (Unknown Dose) PO DAILY SUPPLEMENT (Reported) Clopidogrel Bisulfate (Clopidogrel) 75 MG TABLET 1 TAB PO DAILY BLOOD THINNER (Reported) Cyanocobalamin (Vitamin B-12) (Unknown Strength) TABLET (Unknown Dose) PO DAILY SUPPLEMENT (Reported) Docusate Sodium (Colace) 100 MG CAPSULE 1 CAP PO BID STOOL SOFTENER (Reported ) Hydralazine HCl 25 MG TABLET 1 TAB PO BID HEART (Reported) Hydralazine HCl 50 MG TABLET 1 TAB PO BID htn Insulin Detemir (Levemir Flextouch) 100 UNIT/ML (3 ML) INSULN.PEN 6 UNITS SC QPM DM (Reported) Insulin Lispro (Humalog Kwikpen U-100) 100 UNIT/ML INSULN.PEN DM (Reported) Multivitamin (Multi-Day Vitamins) 1 EACH TABLET 1 TAB PO DAILY SUPPLEMENT ( Reported) Pravastatin Sodium 40 MG TABLET 1 TAB PO DAILY hypercholesterolemia (Reported ) Pregabalin (Lyrica) 200 MG CAPSULE 1 CAP PO DAILY NERVE PAIN (Reported) Ranitidine HCl (Acid Architecture Instructor) 150 MG TABLET 1 TAB PO BID GI (Reported) Rivastigmine Tartrate (Rivastigmine) 6 MG CAPSULE 1 CAP PO BID MEMORY ( Reported) Sennosides (Senna) 8.6 MG TABLET 0.5 TAB PO QPM GI (Reported) Sertraline HCl 25 MG TABLET 1 TAB PO DAILY DEPRESSION (Reported) Trazodone HCl 50 MG TABLET 1.5 TAB PO QPM sleep (Reported) Triage Note: PT TO ED WITH DAUGHTER FOR C/O HIGH BP TODAY. DAUGHTER STATES THEY HAVE BEEN CHECKING IT THROUGHOUT THE DAY, IT WENT HIGH 217/80 PER DAUGHTER. DAUGHTER ALSO STATES PT HAS BEEN WEAK. PT HAS NO COMPLAINTS, NO PAIN, C/P, DIFF BREATHING. MANUAL BP 208/72. Triage Nurses Notes Reviewed? yes Onset: Gradual Duration: day(s):, waxing and waning Timing: recent history Injury Environment: home Severity: moderate Modifying Factors: Improves With: medication. Associated Symptoms: SLIGHTLY INCREASED CONFUSION HPI: 86 yo woman h/o hypertension, h/o dementia presents with elevated blood pressure. Per her daughter, "Her blood pressure goes up and down... She takes the medicine and it will go down to the 130's. But then it goes right back up... This morning it was 160's... and then it went up to the 200's. ... My brother said she was more confused today.... but now she is okay." No chest pain, shortness of breath. She is otherwise well. Past History Travel History Traveled to [place] past 21 day No Medical History Any Pertinent Medical History? 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 No Review of Systems Review of Systems Constitutional: Reports: no symptoms. EENTM: Reports: no symptoms. Respiratory: Reports: no symptoms. Cardiovascular: Reports: no symptoms. GI: Reports: no symptoms. Genitourinary: Reports: no symptoms. Musculoskeletal: Reports: no symptoms. Skin: Reports: no symptoms. Neurological/Psychological: Reports: no symptoms. Hematologic/Endocrine: Reports: no symptoms. Immunologic/Allergic: Reports: no symptoms. All Other Systems: Reviewed and Negative Physical Exam Physical Exam General Appearance: well developed/nourished Head: atraumatic, normal appearance Eyes: Bilateral: normal appearance. Ears, Nose, Throat: normal pharynx, normal ENT inspection Neck: normal inspection, supple, full range of motion Respiratory: normal breath sounds, chest non-tender, no respiratory distress, quiet respiration, lungs clear Cardiovascular: regular rate/rhythm Gastrointestinal: normal bowel sounds, soft, no organomegaly Back: normal inspection Extremities: normal inspection, normal capillary refill, normal range of motion, no edema Neurologic/Psych: no motor/sensory deficits, awake, alert, oriented x 3, normal gait Skin: intact, normal color, warm/dry Core Measures ACS in differential dx? No CVA/TIA Diagnosis: No Severe Sepsis Present: No Septic Shock Present: No Progress Differential Diagnoses I considered the following diagnoses in my evaluation of the patient: hypertensive urgency, emergency vs mi vs other. Plan of Care: Orders Procedure Date/time Status Consistent Carbohydrate 3 10/30 B Active Vital Signs 10/30 0314 Active Teach/Educate 10/30 313 Active Pain Treatment and Response 10/30 313 Active Nutritional Intake, Monitor 10/30 313 Active Isolation 10/30 031 Active Intake & Output 10/30 313 Active Patient Care Conference 10/30 313 Active Activity/Ambulation 10/30 313 Active TROPONIN LEVEL 10/30 0200 Complete EKG 10/30 0200 Active Code Status 10/30 0117 Active Lab Add-on Test 10/30 UNK Active Vital Signs 10/30 UNK Active Nursing Misc 10/30 UNK Active CMS- Neurovascular Checks 10/30 UNK Active URINALYSIS 10/29 2301 Complete Pathway - chart 10/29 2250 Active PT Evaluate & Treat 10/29 2245 Active Pathway - chart 10/29 2245 Active House Staff 10/29 2245 Active Patient Data 10/29 2225 Active Saline Lock 10/[address] in observation 10/29 2216 Active Misc Message 10/29 2216 Active ED Holding Orders 10/29 2216 Active Vital Signs 10/29 2216 Active GLYCOSYLATED HGB 10/29 2013 Active Intake & Output 10/29 194 Complete PARTIAL THROMBOPLASTIN TIME 10/29 193 Complete PROTHROMBIN TIME 10/29 1937 Complete TROPONIN LEVEL 10/29 1905 Active COMPREHENSIVE METABOLIC PANEL 10/29 190 Active CBC WITHOUT DIFFERENTIAL 10/29 1905 Complete EKG 10/29 190 Active VTE Mechanical Prophylaxis 10/29 UNK Active Vital Signs 10/29 UNK Active Intake & Output 10/29 UNK Complete FingerStick- Glucose 10/29 UNK Active Current Medications Sig/Rachelle Start time Last Medication Dose Stop Time Status Admin Melatonin 5 MG AT BEDTIME 10/30 220 AC (Melatonin) Trazodone HCl 75 MG QPM 10/30 2200 AC (Desyrel) Pravastatin Sodium 40 MG 1700 10/30 1700 AC (Pravachol) Clopidogrel Bisulfate 75 MG DAILY 10/30 1000 AC (Plavix) Polyethylene Glycol 17 GM DAILY 10/30 1000 AC (Miralax) Sertraline HCl 25 MG DAILY 10/30 1000 AC (Zoloft) Heparin Sodium 5,000 UNIT Q8 10/30 0600 AC (Porcine) Senna/Docusate Sodium 0.5 TAB BID 10/30 0200 AC (Senokot S) Sodium Chloride 1,000 ML Q10H 10/30 0100 AC (Normal Saline 0.9%) 10/30 1059 Acetaminophen 650 MG Q6P PRN 10/29 2300 AC 10/30 (Tylenol) 0214 Acetaminophen 1,000 MG Q6P PRN 10/29 230 AC (Ofirmev) Morphine Sulfate 0.5 MG Q8P PRN 10/29 230 AC (Morphine) Laboratory Tests 10/30/16 0215: Troponin I < 0.01 10/29/164: Urine Color YEL, Urine Clarity CLEAR, Urine pH 7.0, Ur Specific [place] 1.010, Urine Protein NEG, Urine Ketones NEG, Urine Nitrite POS H, Urine Bilirubin NEG, Urine Urobilinogen 0.2, Ur Leukocyte Esterase TRACE H, Ur Microscopic SEDIMENT EXAMINED, Urine RBC RARE, Urine WBC RARE, Urine Bacteria MOD H, Urine Hemoglobin TRACE-INTACT, Urine Glucose 100 H 10/29/16 2013: Anion Gap 12, Estimated GFR > 60, BUN/Creatinine Ratio 27.5 H, Glucose 228 H, Hemoglobin A1c Pending, Calcium 9.6, Total Bilirubin 0.4, AST 39 H, ALT 42, Alkaline Phosphatase 191 H, Troponin I < 0.01, Total Protein 8.4 H, Albumin 4.6, Globulin 3.8, Albumin/Globulin Ratio 1.2, PT 10.2, INR 0.97, APTT 36, CBC w Diff NO MAN DIFF REQ, RBC 4.30, MCV 90.8, MCH 29.8, RDW 13.6, MPV 10.8 H, Gran % 56.2, Lymphocytes % 27.0, Monocytes % 9.2, Eosinophils % 7.1 H, Basophils % 0.5, Absolute Granulocytes 3.5, Absolute Lymphocytes 1.7, Absolute Monocytes 0.6 , Absolute Eosinophils 0.4, Absolute Basophils 0, PUBS MCHC 32.8 L Diagnostic Imaging: Viewed by Me: Radiology Read, CT Scan. Discussed w/RAD: Radiology Read, CT Scan. Radiology Impression: head ct... old stroke CXR Impression: no acute abnormality, no infiltrates, normal size heart, normal mediastinum Initial ED EKG: normal axis, normal intervals, normal p-waves, normal QRS complex, normal sinus rhythm Comments: PATIENT: JOSAFAT CONTRERAS PRESENT AGE: 86 PATIENT ACCOUNT NO: [id number] : 32 LOCATION: [facility] ORDERING PHYSICIAN: PAM SOLANO MD SERVICE DATE: 10/29/16 EXAM TYPE: RAD - XRY-PORTABLE CHEST XRAY EXAMINATION: XR CHEST CLINICAL INFORMATION: Hypertensive urgency. COMPARISON: Multiple priors, most recent chest radiographs dated 06/06/2016. TECHNIQUE: Portable frontal view of the chest was obtained. FINDINGS: No airspace consolidation. No pleural effusion or pneumothorax. Stable cardiomegaly. No acute osseous abnormality. IMPRESSION: No airspace consolidation. Stable cardiomegaly. DICTATED BY: SHABBIR ARRINGTON MD DATE/TIME DICTATED:10/29/162008 WILDLIFE REHABILITATOR:GARETH DATE/TIME TRANSCRIBED:10/29/162008 CONFIDENTIAL, DO NOT COPY WITHOUT APPROPRIATE AUTHORIZATION. <Electronically signed in Other Vendor System> SIGNED BY: SHABBIR ARRINGTON MD 2026 PATIENT: JOSAFAT CONTRERAS PRESENT AGE: 86 PATIENT ACCOUNT NO: [id number] : 32 LOCATION: [facility] ORDERING PHYSICIAN: PAM SOLANO MD SERVICE DATE: 10/29/16 EXAM TYPE: CAT - CT HEAD WO IV CONTRAST EXAMINATION: CT HEAD WITHOUT CONTRAST CLINICAL INFORMATION: Confusion. COMPARISON: Multiple priors, most recent CT head dated 03/15/2014. TECHNIQUE: Contiguous axial imaging was performed from the skull base to vertex without intravenous administration of contrast. DLP: 619.37 mGy-cm FINDINGS: There is no evidence of acute intracranial hemorrhage or territorial infarction. No abnormal mass effect or midline shift is seen. Hypoattenuation is seen within the left parieto-occipital lobe, consistent with a remote infarct. Alexander to white matter differentiation is otherwise well preserved. No extra-axial fluid collections are identified. There is mild prominence of the ventricles and sulci consistent with age-related atrophy. There is hypoattenuation of the periventricular white matter, consistent with chronic microvascular ischemic disease. The osseous structures and soft tissues are normal. The mastoid air cells and visualized portions of the paranasal sinuses are well aerated. IMPRESSION: 1. No intracranial hemorrhage or mass effect. 2. 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 3. Mild cerebral atrophy and chronic microvascular ischemic disease, unchanged. DICTATED BY: SHABBIR ARRINGTON MD DATE/TIME DICTATED:10/29/162005 WILDLIFE REHABILITATOR:GARETH DATE/TIME TRANSCRIBED:10/29/162005 CONFIDENTIAL, DO NOT COPY WITHOUT APPROPRIATE AUTHORIZATION. <Electronically signed in Other Vendor System> SIGNED BY: SHABBIR ARRINGTON MD 2015 Departure Departure Disposition: STILL A PATIENT Condition: Stable Clinical Impression Primary Impression: Hypertensive urgency Referrals: AILYN MCKENNA (PCP/Family) Departure Forms: Customer Survey General Discharge Information Admission Note Spoke With: KILLIAN GUZMAN MD Documentation of Exam: Documentation of any treatments & extenuating circumstances including Concerns Regarding Discharge (functional status, medication knowledge or non-compliance, living conditions, etc.) that warrant an admission rather than observation: discussed with dr. yin... pt received several doses of iv htn meds without significant decrease in her blood pressure. pt has increased confusion, merits admission for rule out, htn management. Critical Care Note Critical Care Note Critical Care Time: 30-74 min
--- NOTE | 2016-10-29 20:16 | CT SCAN REPORT ---
EXAMINATION: CT HEAD WITHOUT CONTRAST CLINICAL INFORMATION: Confusion. COMPARISON: Multiple priors, most recent CT head dated 03/15/2014. TECHNIQUE: Contiguous axial imaging was performed from the skull base to vertex without intravenous administration of contrast. DLP: 619.37 mGy-cm FINDINGS: There is no evidence of acute intracranial hemorrhage or territorial infarction. No abnormal mass effect or midline shift is seen. Hypoattenuation is seen within the left parieto-occipital lobe, consistent with a remote infarct. Alexander to white matter differentiation is otherwise well preserved. No extra-axial fluid collections are identified. There is mild prominence of the ventricles and sulci consistent with age-related atrophy. There is hypoattenuation of the periventricular white matter, consistent with chronic microvascular ischemic disease. The osseous structures and soft tissues are normal. The mastoid air cells and visualized portions of the paranasal sinuses are well aerated. IMPRESSION: 1. No intracranial hemorrhage or mass effect. 2. 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 3. Mild cerebral atrophy and chronic microvascular ischemic disease, unchanged.
[2016-10-29 20:24] LABS: ABSOLUTE BASOPHIL COUNT 0 /CUMM (0.0-0.2); ABSOLUTE EOSINOPHIL COUNT 0.4 /CUMM (0.0-0.7); ABSOLUTE GRANULOCYTE CT 3.5 /CUMM (1.4-6.5); ABSOLUTE LYMPH COUNT 1.7 /CUMM (1.2-3.4); ABSOLUTE MONOCYTE COUNT 0.6 /CUMM (0.10-0.60); BASOPHIL % 0.5 % (0.0-2.0); EOSINOPHIL % 7.1 % (0-5); GRANULOCYTE % 56.2 % (42.2-75.2); MEAN CORPUSCULAR HGB 29.8 PG (27.0-31.0); MEAN CORPUSCULAR HGB CONC 32.8 G/DL (33.0-37.0); MEAN CORPUSCULAR VOLUME 90.8 FL (81.0-99.0); MEAN PLATELET VOLUME 10.8 FL (7.4-10.4); PLATELET COUNT 162 /CUMM (130-400); RBC DISTRIBUTION WIDTH 13.6 % (11.5-14.5); WHITE BLOOD CELL COUNT 6.2 /CUMM (4.8-10.8)
--- NOTE | 2016-10-29 20:27 | RADIOLOGY REPORT ---
EXAMINATION: XR CHEST CLINICAL INFORMATION: Hypertensive urgency. COMPARISON: Multiple priors, most recent chest radiographs dated 06/06/2016. TECHNIQUE: Portable frontal view of the chest was obtained. FINDINGS: No airspace consolidation. No pleural effusion or pneumothorax. Stable cardiomegaly. No acute osseous abnormality. IMPRESSION: No airspace consolidation. Stable cardiomegaly.
[2016-10-29 20:33] LABS: PT 10.2 SEC (9.4-12.5); PTT 36 SEC (25-37)
--- NOTE | 2016-10-29 23:22 | History & Physical ---
KYLER STERLING,MINERVA 10/29/16 2322: General Information and HPI MD Statement: I have seen and personally examined JOSAFAT CONTRERAS and documented this H&P. The patient is a 86 year old F who presented with a patient stated chief complaint of [htn]. Source of Information: patient, family, old records Exam Limitations: unable to give history, dementia, poor historian, language barrier History of Present Illness: This is an 86-year-old female with past medical history significant for CVA, dementia, TIA, hypertension, diverticulitis, urinary incontinence, osteoporosis, PVD, UTI and chronic prophylaxis, who presents with chief complaint of hypertensive urgency. Patient is predominantly [place]i-speaking so history is obtained with the help of granddaughter in room. Per granddaughter, patient was noted to have elevated blood pressure readings this a.m. up to 220 systolic at home. The readings where corroborated to what sounds like a visiting nurse, who informed family to go to ED. Patient had similar presentation on October 25 to the ED. At that time her blood pressure medication was altered. Her hydralazine dose was doubled from 25 to 50 mg. No CP/SOB/N/V/Diarrhea/change in bowel or urinary symptoms at this time. Allergies/Medications Allergies: Coded Allergies: codeine (Severe, HALLUCINATIONS, NAUSEA 06/06/16) oxycodone (From Percocet) (Severe, HALLUCINATIONS, NAUSEA 06/06/16) Sulfa (Sulfonamide Antibiotics) (N/V SEVERE 06/06/16) Home Med list Alendronate Sodium 70 MG TABLET 1 TAB PO QMON OSTEOPOROSIS (Reported) in the morning, at least 30 minutes before the first food, beverage, or medication of the day Cephalexin 250 MG CAPSULE 1 CAP PO QAM PROPHYLAXIS UTI (Reported) Cholecalciferol (Vitamin D3) (Vitamin D) 2,000 UNIT TABLET 2 TAB PO DAILY SUPPLEMENT (Reported) Clopidogrel Bisulfate (Clopidogrel) 75 MG TABLET 1 TAB PO DAILY BLOOD THINNER (Reported) Cyanocobalamin (Vitamin B-12) 1,000 MCG TABLET 1 TAB PO DAILY SUPPLEMENT ( Reported) Docusate Sodium (Colace) 100 MG CAPSULE 1 CAP PO BID STOOL SOFTENER (Reported ) Hydralazine HCl 25 MG TABLET 1 TAB PO BID HEART (Reported) Insulin Detemir (Levemir Flextouch) 100 UNIT/ML (3 ML) INSULN.PEN 6 UNITS SC QPM DM (Reported) Insulin Lispro (Humalog Kwikpen U-100) 100 UNIT/ML INSULN.PEN DM (Reported) Multivitamin (Multi-Day Vitamins) 1 EACH TABLET 1 TAB PO DAILY SUPPLEMENT ( Reported) Pravastatin Sodium 40 MG TABLET 1 TAB PO DAILY hypercholesterolemia (Reported ) Pregabalin (Lyrica) 200 MG CAPSULE 1 CAP PO DAILY NERVE PAIN (Reported) Ranitidine HCl (Acid Clerical Warehouse Worker) 150 MG TABLET 1 TAB PO BID GI (Reported) Rivastigmine Tartrate (Rivastigmine) 6 MG CAPSULE 1 CAP PO BID MEMORY ( Reported) Sennosides (Senna) 8.6 MG TABLET 0.5 TAB PO QPM GI (Reported) Sertraline HCl 25 MG TABLET 1 TAB PO DAILY DEPRESSION (Reported) Trazodone HCl 50 MG TABLET 1.5 TAB PO QPM sleep (Reported) Compliance With Home Meds: GOOD Past History Travel History Traveled to [place] past 21 day No Medical History Neurological: CVA, dementia, TIA EENT: NONE Cardiovascular: hypertension Respiratory: NONE Gastrointestinal: diverticulitis Hepatic: NONE Renal: urinary incontinence Musculoskeletal: osteoporosis Psychiatric: NONE Endocrine: diabetes Blood Disorders: NONE Cancer(s): NONE TRANS ROUTER/Reproductive: NONE History of MRSA: Yes History of VRE: No History of CDIFF: No Surgical History Surgical History: AMPUTATION OF TOES HYSTERECTOMY Past Family/Social History Psychosocial History Who Do You Live With? child Services at Home: None Primary Language: Bahraini ETOH Use: denies use Illicit Drug Use: denies illicit drug use Power of Latin Professor/HCP? yes Functional Ability ADLs Needs Assist: dressing, eating, toileting, bathing. Ambulation: walker IADLs Needs Assist: shopping, housework, finances, food prep, telephone, transportation, medication admin. Review of Systems Review of Systems Constitutional: Reports: no symptoms. EENTM: Reports: no symptoms. Cardiovascular: Denies: chest pain, palpitations. Respiratory: Denies: cough, short of breath, wheezing. GI: Reports: abdominal pain. Genitourinary: Reports: no symptoms. Denies: dysuria, frequency, hesitation, pain, urgency. Musculoskeletal: Reports: no symptoms. Skin: Reports: no symptoms. Exam & Diagnostic Data Last 24 Hrs of Vital Signs/I&O Vital Signs Date Time Temp Pulse Resp B/P B/P Pulse O2 O2 Flow FiO2 Mean Ox Delivery Rate 10/30 0400 97.4 48 20 130/90 97 Room Air 10/30 0020 96.8 58 16 110/56 99 Room Air 10/29 2344 96.8 58 18 107/56 98 Room Air 10/29 2246 56 158/56 99 Room Air 10/29 2210 58 189/79 99 Room Air 10/29 2209 58 189/79 10/29 2209 58 189/79 10/29 2148 57 196/81 99 Room Air 10/29 2124 52 18 218/78 10/29 2122 52 18 218/78 98 Room Air 10/29 204 53 18 218/86 10/29 204 53 18 218/86 98 Room Air 10/29 1843 96.3 56 20 208/72 96 Room Air Intake & Output 10/30 0800 10/30 0000 10/29 1600 Intake Total 0 Output Total Balance 0 Intake, Oral 0 Patient 59.421 kg 59.421 kg Weight Weight Estimated Measurement Method Physical Exam General Appearance Alert, Cooperative, No Acute Distress Skin No Significant Lesion HEENT Atraumatic, PERRLA, EOMI, Mucous Membr. moist/pink Neck Supple Cardiovascular Regular Rate, Normal S1, Normal S2, No Murmurs Lungs Normal Air Movement Abdomen Soft, pt had some tenderness to palpation in suprapubic area, no rebound or guarding Last 24 Hrs of Labs/Justo: Laboratory Tests 10/30/16 0215: Troponin I < 0.01 10/29/16 2304: Urine Color YEL, Urine Clarity CLEAR, Urine pH 7.0, Ur Specific [place] 1.010, Urine Protein NEG, Urine Ketones NEG, Urine Nitrite POS H, Urine Bilirubin NEG, Urine Urobilinogen 0.2, Ur Leukocyte Esterase TRACE H, Ur Microscopic SEDIMENT EXAMINED, Urine RBC RARE, Urine WBC RARE, Urine Bacteria MOD H, Urine Hemoglobin TRACE-INTACT, Urine Glucose 100 H 10/29/16 2013: Anion Gap 12, Estimated GFR > 60, BUN/Creatinine Ratio 27.5 H, Glucose 228 H, Hemoglobin A1c Pending, Calcium 9.6, Total Bilirubin 0.4, AST 39 H, ALT 42, Alkaline Phosphatase 191 H, Troponin I < 0.01, Total Protein 8.4 H, Albumin 4.6, Globulin 3.8, Albumin/Globulin Ratio 1.2, PT 10.2, INR 0.97, APTT 36, CBC w Diff NO MAN DIFF REQ, RBC 4.30, MCV 90.8, MCH 29.8, RDW 13.6, MPV 10.8 H, Gran % 56.2, Lymphocytes % 27.0, Monocytes % 9.2, Eosinophils % 7.1 H, Basophils % 0.5, Absolute Granulocytes 3.5, Absolute Lymphocytes 1.7, Absolute Monocytes 0.6 , Absolute Eosinophils 0.4, Absolute Basophils 0, PUBS MCHC 32.8 L Assessment/Plan Assessment: This is an 86 yo female w/past medical history of CVA, dementia, TIA, hypertension, diverticulitis, urinary incontinence, osteoporosis, PVD and UTI. Patient was brought into ED for chief complaint of hypertensive urgency. In ED she was given 50 mg by mouth hydralazine, 2 mg of nitroglycerin paste, hydralazine 10 mg IV, 0.1 mg of clonidine, and another 20 mg of hydralazine IV. ED workup shows: Vitals: 96.3, 56, 20, 208/72, 96. CBC: White count 6.2, hemoglobin 12.8, hematocrit 39, platelet 162. BEP: BUN 22, creatinine 0.8. AST [address] HEAD IMPRESSION: 1. No intracranial hemorrhage or mass effect. 2. 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 3. Mild cerebral atrophy and chronic microvascular ischemic disease, unchanged. CXR IMPRESSION: No airspace consolidation. Stable cardiomegaly. EKG showed sinus rhythm heart rate of 54, VT of 160, some peaked T waves in V3. ----PLAN Hypertensive urgency: Pt came in with BP 208 systolic and was given several medications in ED for BP management. BP subsequently trended down to 110; there is concern for cerebral hypoperfusion. She is followed by Dr. Jiménez on outpt basis. * monitor bp closely * Holding BP meds now; resume appropriately in AM * I L NS * Neuro check q2 * 2x Troponin and ekg * get outpt echo details * monitor on tele * Strict I/O Abdominal pain: Pt has some suprapubic tenderness. Denies any urinary symptoms. She is on chronic UTI ppx. * UA * Bladder scan * Consider abdominal x-ray if bladder scan negative Dementia: chronic and stable * holding rivastigmine-restart as appropriate Depression/Anxiety: * Sertraline * trazadone Osteoporosis * alendronate * Vit D3 hx VT/CAD/PVD/TIA * clopidogrel * get out pt records As Ranked By This Provider Problem List: 1. Hypertensive urgency Core Measures/Miscellaneous Acute Coronary Syndrome ACS Diagnosis: No Cerebrovascular Accident CVA/TIA Diagnosis: No Congestive Heart Failure CHF Diagnosis: No Venous Thromboembolism VTE Risk Factors: Acute medical illness, Age > 40 [facility] prophylaxis d/t: No contraindications No VTE Pharm Prophylaxis d/t: No contraindications VTE Diagnosis: No VTE Type: NONE VTE Confirmed by (Test): NONE Severe Sepsis Severe Sepsis Present: No Septic Shock Septic Shock Present: No Miscellaneous Documentation Attending Case Discussed With: KILLIAN GUZMAN MD Primary Care Physician: AILYN MCKENNA Patient sees these Specialists unknown Level of Patient Care: Telemetry ROB STERLING,[facility] 10/30/16 0121: Resident Review Statement Resident Statement: examined this patient, discussed with management intern, agreed with management intern, reviewed EMR data (avail) Other Findings: 86-year-old female with past medical history significant for hypertension, history of dementia, history of CVA/TIA, osteoporosis, diverticulosis, diabetes mellitus, peripheral vascular disease, hyperlipidemia, coronary artery disease, history of osteomyelitis with MRSA, history of recurrent UTI on cephalexin daily brought in to the emergency department as high blood pressure was noticed by the family members at home. Vitals in emergency department patient afebrile, no tachypnea, no tachycardia systolic blood pressure 8200s and diastolic 80s, oxygen saturation of 99% on room air. On examination patient was alert and oriented, patient was unable to provide all the history and therefore the granddaughter at the bedside was translating for us because of language barrier. S1 and S2 audible without any murmurs, clear lungs. Abdominal examination mild tenderness in the right lower abdomen, grossly intact neurological examination. EKG showed sinus rhythm heart rate of 54, VT of 160, some peaked T waves in V3. CAT scan showed no intracranial hemorrhage, chronic mild cerebral atrophy and chronic microvascular changes. Chest x-ray negative for any acute changes. She was admitted on telemetry floor for the management of following problems Hypertensive Urgency Patient was given 50 mg of by mouth hydralazine, 10 mg of IV hydralazine, plus 20 mg of IV hydralazine and 0.1 mg of clonidine in emergency department and patient's blood pressure dropped from 218/86-110/56 in 4 HOURS. Acute drop in blood pressure is not recommended and therefore we will keep the patient on neurochecks for now and vitals every 2 hours. Patient did not have any signs of hypertensive emergency on examination. He was at baseline according to her family member. Since this was such a acute drop in blood pressure by emergency management in ER we will give 1 L of normal saline. Will hold all of patient's antihypertensive medications were now. It is slowly resume patient's medications as the blood pressure improves. We will rule out acute coronary syndrome with 2 sets of troponins. Also check with cardiology if the recent echocardiogram was done. Patient is DNR/DNI Patient is on diabetic diet Patient is on pain pathway Patient is on heparin for DVT prophylaxis KILLIAN GUZMAN 10/30/16 0451: Attending MD Review Statement Attending Statement Attending MD Statement: examined this patient, discuss w/resident/PA/RESIDENT CARE COORDINATOR, agreed w/resident/PA/RESIDENT CARE COORDINATOR, discussed with family, reviewed EMR data (avail), reviewed images, amended to note Attending Assessment/Plan: CC: High blood pressure PMH: CVA/TIA, DM, HTN, HLD, VT/CAD, PVD, and dementia, chronic UTI on prophylaxis history is obtained from granddaughter secondary to language barrier. According to granddaughter patient had been compliant with her medications and still her blood pressure was high at 217/80. Recently her dose of hydralazine was increased from 25 twice a day to 50 twice a day still her blood pressure was fluctuating a lot. Family called home health nurse with elevated blood pressure who suggested to go to ER. Patient denies any chest pain, palpitations, diaphoresis, dizziness, headache, blurry vision, presyncope. According to granddaughter patient is mildly confused which happens to her every night. Vitals: Afebrile, pulse in 50s, RR 16-18, blood pressure upon arrival 208/72 mildly increased 218/86 but then trended down to 189/79 then 158/56 and finally 110/56 saturating well on room air. On exam: A O 3, cooperative, no acute distress, neck supple, JVD normal, no lymphadenopathy, mucosa moist, no focal neurological deficit, no dependent edema , no obvious skin rashes or inflammation CVS: S1-S2, RRR. RS: Clear to auscultate bilaterally. Abdomen: Soft, NT, ND, bowel sounds present. Labs: CBC unremarkable, glucose 228, BUN 22, creatinine 0.8, troponin less than 0.01., INR 0.97, UA positive for nitrites and trace leukocyte esterase CT head: 1. No intracranial hemorrhage or mass effect. 2. 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 3. Mild cerebral atrophy and chronic microvascular ischemic disease, unchanged. CXR: No airspace consolidation. Stable cardiomegaly EKG: Sinus bradycardia A and P Patient presented with hypertensive urgency in ER with elevated blood pressure but no evidence of end organ damage. She received 50 mg of by mouth hydralazine, 2 g Nitro-Bid paste, 10 mg IV hydralazine, followed by 20 mg of IV hydralazine, 0.1 mg of by mouth clonidine within 2 and half hours of duration in ER. Blood pressure significantly dropped to 110/56, pulse high 40s low 50s (probably secondary to a rivastigmine and clonidine combination). Given significant drop in blood pressure, there is concern about cerebral or renal hypoperfusion. + Hypertensive urgency + [place] treated blood pressure + secondary to dementia + History of CVA/TIA and VT/CAD with PVD and diabetes - Place in observation on telemetry - Now that blood pressure is low hold all the antihypertensives - Check BP every 2 hourly 3 times - Continue gentle hydration with normal saline at 100 mL per hour : Goal blood pressure 150 systolic - Ones blood pressure is improving reevaluate by mouth medications for antihypertensive management - Neuro check every 4 hours - Strict I's and O's - Trend troponin and serial EKG - Continue Plavix, docusate, sertraline, trazodone, sliding scale insulin - Hold Lyrica and reverse segment - DVT prophylaxis with heparin - Obtain 2-D echocardiogram result done outpatient - Adequate pain control -Continue home doses of antibiotics for UTI prophylaxis
[2016-10-30 04:00] VITALS: BP 130/90
[2016-10-30 06:00] VITALS: BP 150/60
[2016-10-30 08:00] VITALS: BP 124/70
--- NOTE | 2016-10-30 10:51 | PN- Housestaff ---
BERONICAMATT 10/30/16 1029: Subjective Follow-up For: Hypertensive urgency Tele-Events Since Last Visit: Sinus bradycardia Subjective: Patient seen and examined. Offers no complaints. Sitting comfortably in chair, eating breakfast. No lightheadedness, dizziness. No difficulty swallowing. No further high readings of BP. Review of Systems Constitutional: Reports: see HPI. Objective Last 24 Hrs of Vital Signs/I&O Vital Signs Date Time Temp Pulse Resp B/P B/P Pulse O2 O2 Flow FiO2 Mean Ox Delivery Rate 10/30 08 97.9 49 20 124/70 97 Room Air 10/30 0600 97.4 48 20 150/60 97 Room Air 10/30 0400 97.4 48 20 130/90 97 Room Air 10/30 0020 96.8 58 16 110/56 99 Room Air 10/29 2344 96.8 58 18 107/56 98 Room Air 10/29 2246 56 158/56 99 Room Air 10/29 2210 58 189/79 99 Room Air 10/29 2209 58 189/79 10/29 2209 58 189/79 10/29 2148 57 196/81 99 Room Air 10/29 2125 52 18 218/78 10/29 2123 52 18 218/78 98 Room Air 10/29 2043 53 18 218/86 10/29 2043 53 18 218/86 98 Room Air 10/29 1843 96.3 56 20 208/72 96 Room Air Intake & Output 10/30 1600 10/30 0800 10/30 0000 Intake Total 50 0 Output Total Balance 50 0 Intake, Oral 50 0 Patient 131 lb 131 lb Weight Weight Estimated Measurement Method Physical Exam General Appearance: Alert, Oriented X3, Cooperative, Maori speaking, info obtained from daughter at bedside. Skin: No Rashes, No Breakdown, No Significant Lesion Cardiovascular: Regular Rate, Normal S1, Normal S2 Lungs: Clear to Auscultation, Normal Air Movement Abdomen: Normal Bowel Sounds, Soft, No Tenderness Neurological: Normal Speech, Strength at 5/5 X4 Ext, Reflexes 2+ Extremities: No Clubbing, No Cyanosis, No Edema Current Medications: Current Medications Sig/Rachelle Start time Last Medication Dose Route Stop Time Status Admin Acetaminophen 650 MG Q6P PRN 10/29 2300 AC 10/30 PO 0214 Acetaminophen 1,000 MG Q6P PRN 10/29 2299 AC IV Acetaminophen 0 .STK-MED ONE 05/29 2209 DC PO Acetaminophen 650 MG ONCE ONE 10/29 2199 DC 10/29 PO 10/29 Cephalexin 250 MG QAM 10/30 1000 AC PO Clonidine 0 .STK-MED ONE 10/29 2208 DC PO Clonidine 0.1 MG ONCE ONE 10/29 2144 DC 10/29 PO 10/29 Clopidogrel Bisulfate 75 MG DAILY 10/30 1000 AC PO Heparin Sodium 5,000 UNIT Q8 10/30 0600 AC 10/30 (Porcine) SC 06 Hydralazine HCl 0 .STK-MED ONE 10/29 2209 DC .ROUTE Hydralazine HCl 20 MG ONCE ONE 10/29 2144 DC 10/29 IV 10/29 Hydralazine HCl 0 .STK-MED ONE 10/30 2119 DC .ROUTE Hydralazine HCl 10 MG ONCE ONE 10/29 2100 DC 10/29 IV 10/29 Hydralazine HCl 50 MG STAT STA 10/29 193 DC 10/29 PO 10/29 Insulin Aspart 0 TIDAC 10/30 0115 DC SC Melatonin 5 MG AT BEDTIME 10/30 2199 AC PO Morphine Sulfate 0.5 MG Q8P PRN 10/29 2299 AC IV Nitroglycerin 0 .STK-MED ONE 10/29 2120 DC TOP Nitroglycerin 2 GM STAT STA 10/30 2051 DC 10/29 TOP 10/29 2052 215 Polyethylene Glycol 17 GM DAILY 10/30 1000 AC PO Pravastatin Sodium 40 MG 1700 10/30 1700 AC PO Senna/Docusate Sodium 0.5 TAB BID 10/30 0200 AC PO Sertraline HCl 25 MG DAILY 10/30 1000 AC PO Sodium Chloride 1,000 ML Q10H 10/30 0100 DC 10/30 IV 10/30 1059 0130 Trazodone HCl 75 MG QPM 10/30 2199 AC PO Last 24 Hrs of Lab/Justo Results Last 24 Hrs of Labs/Mics: Laboratory Tests 10/30/16 0215: Troponin I < 0.01 10/29/16 2304: Urine Color YEL, Urine Clarity CLEAR, Urine pH 7.0, Ur Specific [place] 1.010, Urine Protein NEG, Urine Ketones NEG, Urine Nitrite POS H, Urine Bilirubin NEG, Urine Urobilinogen 0.2, Ur Leukocyte Esterase TRACE H, Ur Microscopic SEDIMENT EXAMINED, Urine RBC RARE, Urine WBC RARE, Urine Bacteria MOD H, Urine Hemoglobin TRACE-INTACT, Urine Glucose 100 H 10/29/162012: Anion Gap 12, Estimated GFR > 60, BUN/Creatinine Ratio 27.5 H, Glucose 228 H, Hemoglobin A1c 8.6 H, Calcium 9.6, Total Bilirubin 0.4, AST 39 H, ALT 42, Alkaline Phosphatase 191 H, Troponin I < 0.01, Total Protein 8.4 H, Albumin 4.6, Globulin 3.8, Albumin/Globulin Ratio 1.2, PT 10.2, INR 0.97, APTT 36, CBC w Diff NO MAN DIFF REQ, RBC 4.30, MCV 90.8, MCH 29.8, RDW 13.6, MPV 10.8 H, Gran % 56.2, Lymphocytes % 27.0, Monocytes % 9.2, Eosinophils % 7.1 H, Basophils % 0.5, Absolute Granulocytes 3.5, Absolute Lymphocytes 1.7, Absolute Monocytes 0.6 , Absolute Eosinophils 0.4, Absolute Basophils 0, PUBS MCHC 32.8 L Assessment/Plan Assessment: 86 year old woman with HTN urgency brought in to OR yesterday, no neurological deficits on exam, no end organ damage. MAP yesterday at admission: 130 mm hg MAP 3 hours post admission: 73 mm hg After 44 % decrease in MAP last night, the patient was started on maintenance fluids to maintain SBP ~150. 1. Hypertensive urgency : Continue monitoring BP. Discontinue IV fluids. Recent increase in Hydralazine dose from 25 to 50 BID, it seems. Patient's son has been mangaing her medications, and administering 25 or 50 mg doses interchangeably, depending on BP readings. Will start the patient on 25 mg BID in the evening, after monitoring her BP, for another 6 hours. Cradiologist - Dr. Jiménez. ACS ruled out with serial troponins and unchanged EKGs. Extended obs for closer BP monitoring and medication selection. 2. Chronic UTI prophylaxis: Offers on complaints this morning. Afebrile. 3. Dementia : Will restart Rivastigmine today. 4. H/o AL, CAD, PVD : Continue current meds. 5. Diabetes mellitus : Hba1c 8.6, Accepatble, persmissive hyperglycemia for age. Continue current Levemir and SS, follow up with PCP. DNR/DNI CC3 diet Heparin for DVT proph. Problem List: 1. Hypertensive urgency Pain Ratin Pain Location: None Pain Goal: Remain pain free Pain Plan: PRN Tomorrow's Labs & Rationales: Not needed CHRISTOPHER STERLING,JOHNSON 10/30/16 1136: Attending MD Review Statement Attending Statement Attending MD Statement: examined this patient, discuss w/resident/PA/GRISTMILL OPERATOR, agreed w/resident/PA/GRISTMILL OPERATOR, discussed with family, reviewed EMR data (avail), discussed with nursing, discussed with case mgmt, reviewed images, amended to note Attending Assessment/Plan: Patient seen and examined, she is Maori-speaking. Her daughter was at bedside for the consultation. Patient denies any current chest pain, headache or shortness of breath. Patient was placed on telemetry observation with hypertensive urgency. BP now better. Vital Signs Date Time Temp Pulse Resp B/P B/P Pulse O2 O2 Flow FiO2 Mean Ox Delivery Rate 10/30 0800 97.9 49 20 124/70 97 Room Air 10/30 0600 97.4 48 20 150/60 97 Room Air 10/30 0400 97.4 48 20 130/90 97 Room Air 10/30 0020 96.8 58 16 110/56 99 Room Air 10/29 2344 96.8 58 18 107/56 98 Room Air 10/29 2246 56 158/56 99 Room Air 10/29 2210 58 189/79 99 Room Air 10/29 2209 58 189/79 10/29 2209 58 189/79 10/29 2148 57 196/81 99 Room Air 10/29 2124 52 18 218/78 10/29 2122 52 18 218/78 98 Room Air 10/29 2042 53 18 218/86 10/29 2042 53 18 218/86 98 Room Air 10/29 1843 96.3 56 20 208/72 96 Room Air on exam; awake, nad. cv; s1,s2, rrr resp; clear abd; soft, nt, bs+ ext; no edema Laboratory Tests 10/30 10/29 0215 2304 Chemistry Troponin I (< 0.11 ng/ml) < 0.01 Urines Urine Color (YEL,AMB,STR) YEL Urine Clarity (CLEAR) CLEAR Urine pH (5.0 - 8.0) 7.0 Ur Specific [place] (1.001 - 1.035) 1.010 Urine Protein (NEG,<30 MG/DL) NEG Urine Ketones (NEG) NEG Urine Nitrite (NEG) POS H Urine Bilirubin (NEG) NEG Urine Urobilinogen (0.1 - 1.0 EU/dl) 0.2 Ur Leukocyte Esterase (NEG) TRACE H Ur Microscopic SEDIMENT EXAMINED Urine RBC (0 - 5 /HPF) RARE Urine WBC (0 - 2 /HPF) RARE Urine Bacteria (NEG/NONE) MOD H Urine Hemoglobin (NEG) TRACE-INTACT Urine Glucose (N MG/DL) 100 H 10/29 2012 Chemistry Sodium (137 - 145 mmol/L) 137 Potassium (3.5 - 5.1 mmol/L) 4.0 Chloride (98 - 107 mmol/L) 95 L Carbon Dioxide (22 - 30 mmol/L) 30 Anion Gap (5 - 16) 12 BUN (7 - 17 mg/dL) 22 H Creatinine (0.5 - 1.0 mg/dL) 0.8 Estimated GFR (>60 ml/min) > 60 BUN/Creatinine Ratio (7 - 25 %) 27.5 H Glucose (65 - 99 mg/dL) 228 H Hemoglobin A1c (4.2 - 5.8 %) 8.6 H Calcium (8.4 - 10.2 mg/dL) 9.6 Total Bilirubin (0.2 - 1.3 mg/dL) 0.4 AST (14 - 36 U/L) 39 H ALT (9 - 52 U/L) 42 Alkaline Phosphatase (<127 U/L) 191 H Troponin I (< 0.11 ng/ml) < 0.01 Total Protein (6.3 - 8.2 g/dL) 8.4 H Albumin (3.5 - 5.0 g/dL) 4.6 Globulin (1.9 - 4.2 gm/dL) 3.8 Albumin/Globulin Ratio (1.1 - 2.2 %) 1.2 Coagulation PT (9.4 - 12.5 SEC) 10.2 INR (0.90 - 1.19) 0.97 APTT (25 - 37 SEC) 36 Hematology CBC w Diff NO MAN DIFF REQ WBC (4.8 - 10.8 /CUMM) 6.2 RBC (4.20 - 5.40 /CUMM) 4.30 Hgb (12.0 - 16.0 G/DL) 12.8 Hct (37 - 47 %) 39.0 MCV (81.0 - 99.0 FL) 90.8 MCH (27.0 - 31.0 PG) 29.8 RDW (11.5 - 14.5 %) 13.6 Plt Count (130 - 400 /CUMM) 162 MPV (7.4 - 10.4 FL) 10.8 H Gran % (42.2 - 75.2 %) 56.2 Lymphocytes % (20.5 - 51.1 %) 27.0 Monocytes % (1.7 - 9.3 %) 9.2 Eosinophils % (0 - 5 %) 7.1 H Basophils % (0.0 - 2.0 %) 0.5 Absolute Granulocytes (1.4 - 6.5 /CUMM) 3.5 Absolute Lymphocytes (1.2 - 3.4 /CUMM) 1.7 Absolute Monocytes (0.10 - 0.60 /CUMM) 0.6 Absolute Eosinophils (0.0 - 0.7 /CUMM) 0.4 Absolute Basophils (0.0 - 0.2 /CUMM) 0 PUBS MCHC (33.0 - 37.0 G/DL) 32.8 L A/P; 86 y/o F with pmh sig for CVA, dementia, TIA, hypertension, diverticulitis, urinary incontinence, osteoporosis, PVD, hx of UTI now on ch prophylaxis with daillu cephalxin, who is placed on tele OBS with hypertensive urgency. The daughter claims that patient's antihypertensive regimen has been getting adjusted as an outpatient. From last 1 week or blood pressure was uncontrolled. In the emergency room her blood pressure systolic was running in 200s. She did receive quite a few NT evidence of medications that brought her blood pressure too low to 110 systolic. This morning her blood pressures running anywhere between 120s to 150s. Patient will be resumed back on her hydralazine 25 mg dosing. Cardiology will be consulted. Dr. Jiménez is her account consultant. Please discuss with cardiology about optimal antihypertensive regimen. Will monitor her blood pressure times another 24 hours and we will extend her observation. Continue the rest of her home medications. DVT px; hep sq. Pt is working with PT.
[2016-10-30 15:31] VITALS: BP 120/68
--- NOTE | 2016-10-30 19:09 | Cons- Cardiology ---
General Information and HPI Consulting Request Date of Consult: 10/30/16 Requested By: KILLIAN GUZMAN MD History of Present Illness: Taylor is an 86 year old female with history of hypertension, dyslipidemia and diabetes. She also carries a history of prior CVA. The patient is currenlty without symptoms but she presented to the hospital for evaluation of severe hypertension noted on a routine blood pressure measurement. There has not been any recent changes to her medications. She denies any chest discomfort, shortness of breath, lightheadedness, palpitations, headache or visual changes. At her baseline she can walk for short distances with a walker. She has a poor memory. On a prior hospital admission this patient was noted to have mild bradycardia with a heart rate of 52 BPM reported. On last visit I prescribed Lisinopril for severe hypertension. This drug caused hyperkalemia so she was changed to hydralazine which appears to be well tolerated. Cardiac workup included an echocardiogram showing a normal EF of 60% with impaired LV relaxation. In terms of cardiac valves she has moderate mitral regurgitation and mild tricuspid regurgitation with mildly increased RV pressures. Workup also included a carotid ultrasound showing moderate plaque bilaterally. Allergies/Medications Allergies: Coded Allergies: codeine (Severe, HALLUCINATIONS, NAUSEA 06/06/16) oxycodone (From Percocet) (Severe, HALLUCINATIONS, NAUSEA 06/06/16) Sulfa (Sulfonamide Antibiotics) (N/V SEVERE 06/06/16) Home Med List: Alendronate Sodium 70 MG TABLET 1 TAB PO QMON OSTEOPOROSIS (Reported) in the morning, at least 30 minutes before the first food, beverage, or medication of the day Cephalexin 250 MG CAPSULE 1 CAP PO QAM PROPHYLAXIS UTI (Reported) Cholecalciferol (Vitamin D3) (Vitamin D) (Unknown Strength) TABLET (Unknown Dose) PO DAILY SUPPLEMENT (Reported) Clopidogrel Bisulfate (Clopidogrel) 75 MG TABLET 1 TAB PO DAILY BLOOD THINNER (Reported) Cyanocobalamin (Vitamin B-12) (Unknown Strength) TABLET (Unknown Dose) PO DAILY SUPPLEMENT (Reported) Docusate Sodium (Colace) 100 MG CAPSULE 1 CAP PO BID STOOL SOFTENER (Reported ) Hydralazine HCl 25 MG TABLET 1 TAB PO BID HEART (Reported) Hydralazine HCl 50 MG TABLET 1 TAB PO BID htn Insulin Detemir (Levemir Flextouch) 100 UNIT/ML (3 ML) INSULN.PEN 6 UNITS SC QPM DM (Reported) Insulin Lispro (Humalog Kwikpen U-100) 100 UNIT/ML INSULN.PEN DM (Reported) Multivitamin (Multi-Day Vitamins) 1 EACH TABLET 1 TAB PO DAILY SUPPLEMENT ( Reported) Pravastatin Sodium 40 MG TABLET 1 TAB PO DAILY hypercholesterolemia (Reported ) Pregabalin (Lyrica) 200 MG CAPSULE 1 CAP PO DAILY NERVE PAIN (Reported) Ranitidine HCl (Acid Conservation Agent) 150 MG TABLET 1 TAB PO BID GI (Reported) Rivastigmine Tartrate (Rivastigmine) 6 MG CAPSULE 1 CAP PO BID MEMORY ( Reported) Sennosides (Senna) 8.6 MG TABLET 0.5 TAB PO QPM GI (Reported) Sertraline HCl 25 MG TABLET 1 TAB PO DAILY DEPRESSION (Reported) Trazodone HCl 50 MG TABLET 1.5 TAB PO QPM sleep (Reported) Review of Systems Review of Systems: A twelve point review of systems is unremarkable. Past History Travel History Traveled to [place] past 21 day No Medical History Neurological: CVA, dementia, TIA EENT: NONE Cardiovascular: hypertension Respiratory: NONE Gastrointestinal: diverticulitis Hepatic: NONE Renal: urinary incontinence Musculoskeletal: osteoporosis Psychiatric: NONE Endocrine: diabetes Blood Disorders: NONE Cancer(s): NONE ELECTRICIAN FRONT/Reproductive: NONE Surgical History Surgical History: AMPUTATION OF TOES HYSTERECTOMY Psychosocial History Who Do You Live With? child Services at Home: None Primary Language: Anguill[place] Smoking Status: Unknown If Ever Smoked ETOH Use: denies use Illicit Drug Use: denies illicit drug use Power of Yarding And Folding Machine Operator/HCP? yes Functional Ability ADLs Needs Assist: dressing, eating, toileting, bathing. Ambulation: walker IADLs Needs Assist: shopping, housework, finances, food prep, telephone, transportation, medication admin. Exam & Diagnostic Data Vital Signs and I&O Vital Signs Date Time Temp Pulse Resp B/P B/P Pulse O2 O2 Flow FiO2 Mean Ox Delivery Rate 10/30 1531 98.2 60 20 120/68 96 10/30 0800 97.9 49 20 124/70 97 Room Air 10/30 0600 97.4 48 20 150/60 97 Room Air 10/30 0400 97.4 48 20 130/90 97 Room Air 10/30 0020 96.8 58 16 110/56 99 Room Air 10/29 2344 96.8 58 18 107/56 98 Room Air 10/29 2246 56 158/56 99 Room Air 10/29 2210 58 189/79 99 Room Air 10/29 2209 58 189/79 10/29 2209 58 189/79 10/29 2148 57 196/81 99 Room Air 10/295 52 18 218/78 10/29 2122 52 18 218/78 98 Room Air 10/29 204 53 18 218/86 10/29 2042 53 18 21886 98 Room Air Intake & Output 10/30 0810/30 0000 10/29 1600 10/29 0000 Intake Total 480 50 0 Output Total Balance 480 50 0 Intake, Oral 480 50 0 Patient 131 lb 131 lb Weight Weight Estimated Measurement Method Physical Exam: General: WD/ WN female in NAD; alert and oriented x 3 HEENT: NC/AT, PERRL, EOMI, clear oropharynx Neck: no JVD, no carotid bruit Heart: RRR w/o murmur Lungs: clear bilaterally Abdomen: soft, NT, +ve bowel sounds Extremities: no edema Assessment/Plan Assessment/Plan * This patient was clearly hypertensive upon presentation to the ER. She did demonstrate a very large and acute drop in her BP with modest medical therapy and her current BP is idea. It is not clear if her hypertension was an atypical rise related to an indiscretion with sodium, forgetting to take her medications or some other reason for transient hypertension. I would put her back on her usual dose of hydralazine at 50mg BID and monitor her for 24 hours. Consult Acknowledgment - Thank you for your consult request.
[2016-10-31 01:13] VITALS: BP 144/72
[2016-10-31 08:18] VITALS: BP 110/58
[2016-10-31 09:08] VITALS: BP 118/66
--- NOTE | 2016-10-31 09:37 | PN- Housestaff ---
BERONICAMATT 10/31/16 0928: Subjective Follow-up For: Hypertensive urgency Tele-Events Since Last Visit: Sinus bradycardia Subjective: Patient seen and examined. Sleeping comfortably in bed, arousable but drowsy. No chest poin, shortess of breath or palpitations. No lightheadedness, dizziness. No difficulty swallowing. No further high readings of BP while on hydralazine 25 mg BID. Review of Systems Constitutional: Reports: see HPI. Objective Last 24 Hrs of Vital Signs/I&O Vital Signs Date Time Temp Pulse Resp B/P B/P Pulse O2 O2 Flow FiO2 Mean Ox Delivery Rate 10/31 0908 118/66 10/31 0818 98.2 58 16 110/58 93 Room Air 10/31 0113 98.7 54 20 144/72 96 Room Air 10/30 2020 168/82 10/30 1531 98.2 60 20 120/68 96 Intake & Output 10/31 1600 10/31 0800 10/31 0000 Intake Total 200 240 Output Total 600 Balance 200 -360 Intake, Oral 200 240 Output, Urine 600 Physical Exam General Appearance: Alert, Cooperative HEENT: Atraumatic, Mucous Membr. moist/pink Cardiovascular: Regular Rate, Normal S1, Normal S2 Lungs: Clear to Auscultation, Normal Air Movement Abdomen: Normal Bowel Sounds, Soft, No Tenderness Neurological: Strength at 5/5 X4 Ext Extremities: No Clubbing, No Cyanosis, No Edema Assessment/Plan Assessment: 86 year old woman with HTN urgency brought in to OR yesterday, no neurological deficits on exam, no end organ damage. MAP yesterday at admission: 130 mm hg MAP 3 hours post admission: 73 mm hg 1. Hypertensive urgency : Well controlled on 25 mg BID Hydralzine. Frequent BP checks at home. Follow up with PCP and Dr. Jiménez as an outpatient, for further recommendations. Watch salt intake, and other dietary indiscretions. 2. Chronic UTI prophylaxis: Offers on complaints this morning. Afebrile. 3. Dementia : On Rivastigmine. 4. H/o [place], CAD, PVD : Continue current meds. 5. Diabetes mellitus : Hba1c 8.6, Accepatble, persmissive hyperglycemia for age. Continue current Levemir and SS, follow up with PCP. DNR/DNI CC3 diet Heparin for DVT proph. Problem List: 1. Benign hypertension Pain Ratin Pain Location: None Pain Goal: Remain pain free Pain Plan: PRN Tomorrow's Labs & Rationales: Not needed. CHRISTOPHER STERLING,JOHNSON 10/31/16 1214: Attending MD Review Statement Attending Statement Attending MD Statement: examined this patient, discuss w/resident/PA/RISK CONTROL DIRECTOR, agreed w/resident/PA/RISK CONTROL DIRECTOR, reviewed EMR data (avail), discussed with nursing, discussed with case mgmt, reviewed images, amended to note Attending Assessment/Plan: Patient seen and examined, denies any complaints. Denies any headache, chest pain, shortness of breath. Blood pressure is much improved. Patient was started on 25 g of hydralazine that seems to be controlling her blood pressure well. She is medically stable for discharge home today. Continue the rest of the home medications.
--- NOTE | 2016-10-31 09:52 | Patient Discharge Instructions ---
Discharge Instructions General Discharge Information You were seen/treated for: Very high blood pressure Watch for these problems: Persistent elevated BP readings Headches Numbness/tingling/weakness in extremities Dizziness/Lightheadedness Special Instructions: Please follow up with PCP as an outpatient. Please follow up with Dr. Jiménez as an outpatient, to discuss changes in BP medications, as needed. Please maintain a daily BP log, to document daily BP readings. Diet Continue normal diet: Yes Activity Full Activity/No Limits: Yes Acute Coronary Syndrome Inclusion Criteria At DC or during hospital stay patient has or had the following: ACS DIAGNOSIS No Discharge Core Measures Meds if any: Prescribed or Continued at Discharge Meds if any: NOT Prescribed or Continued at Discharge Congestive Heart Failure Inclusion Criteria At DC or during hospital stay patient has or had the following: CHF DIAGNOSIS No Discharge Core Measures Meds if any: Prescribed or Continued at Discharge Meds if any: NOT Prescribed or Continued at Discharge Cerebrovascular accident Inclusion Criteria At DC or during hospital stay patient has or had the following: CVA/TIA Diagnosis No Discharge Core Measures Meds if any: Prescribed or Continued at Discharge Meds if any: NOT Prescribed or Continued at Discharge Venous thromboembolism Inclusion Criteria VTE Diagnosis No VTE Type NONE VTE Confirmed by (Test) NONE Discharge Core Measures - Per Current guidelines, there needs to be overlap - treatment for the first 5 days of Warfarin therapy. - If discharged on Warfarin prior to 5 days of - overlap therapy, the patient will need to be - assessed for post discharge needs including - *Post discharge parental anticoagulation - *Warfarin and/or parental anticoagulation education - *Follow up date to check INR post discharge At least 5 days overlap therapy as Inpatient No Meds if any: Prescribed or Continued at Discharge Note: Overlap Therapy is Warfarin and Anticoagulant Meds if any: NOT Prescribed or Continued at Discharge
== END 2016-10-31 12:53 | disposition home health service (06) ==
LOC: ERH 18:37 → ERHI 22:17 → 1NO 22:17 → ENRESERV 22:51 → 1NO 10-30 00:42 → ENPENDDIS 10-31 09:58 → 1NO 10-31 12:53
PROVIDERS: Pediatrics; ADMIT Internal Medicine
DX: I10 Essential (primary) hypertension (principal); R00.1 Bradycardia, unspecified; Z22.322 Carrier or suspected carrier of Methicillin resistant Staphylococcus aureus; M81.0 Age-related osteoporosis without current pathological fracture; F03.90 Unspecified dementia, unspecified severity, without behavioral disturbance, psychotic disturbance, mood disturbance, and anxiety; I25.2 Old myocardial infarction; I25.10 Atherosclerotic heart disease of native coronary artery without angina pectoris; F32.9 Major depressive disorder, single episode, unspecified; F41.9 Anxiety disorder, unspecified; E78.5 Hyperlipidemia, unspecified; Z86.73 Personal history of transient ischemic attack (TIA), and cerebral infarction without residual deficits; Z79.4 Long term (current) use of insulin; E11.51 Type 2 diabetes mellitus with diabetic peripheral angiopathy without gangrene
CPT/HCPCS: 81001; 93005; 93010; 96372; 96374; 96376; 97116-GP; 97161-GP; 97530-GP; 99291; G0378; G8978-GP; G8979-GP; J0360; J1644

== ENCOUNTER 2017-06-01 11:35 | Inpatient (IN) | payer OTHER, MEDICARE ==
[~2017-06-01] VITALS: Ht 157.5 cm; Wt 73.9 kg
--- NOTE | 2017-06-01 11:40 | ED DYSPNEA/ASTHMA COMPLAINT ---
History of Present Illness General Chief Complaint: Dyspnea (COPD, CHF, Other) Stated Complaint: BIBA, SOB Source: patient, family, old records Exam Limitations: language barrier Vital Signs & Intake/Output Vital Signs & Intake/Output Vital Signs Date Time Temp Pulse Resp B/P B/P Pulse O2 O2 Flow FiO2 Mean Ox Delivery Rate 06/04 1429 98.4 81 20 120/62 95 06/04 0958 72 138/58 06/04 0958 72 138/58 06/04 0800 94 Nasal 2.0L Cannula 06/04 0657 97.7 64 20 120/50 98 Nasal 2.0L Cannula 06/04 0000 Nasal 2.0L Cannula 06/03 2216 98.2 85 20 130/70 94 06/03 2126 98.4 85 20 130/70 06/03 1656 96 Nasal 2.0L Cannula 06/03 1600 Nasal 2.0L Cannula 06/03 1531 98.0 80 20 112/56 96 ED Intake and Output 06/04 0000 06/03 1200 Intake Total 1130 200 Output Total Balance 1130 200 Intake, IV 250 Intake, Oral 880 200 Patient 75.977 kg Weight Allergies Coded Allergies: codeine (Severe, HALLUCINATIONS, NAUSEA 06/06/16) oxycodone (From Percocet) (Severe, HALLUCINATIONS, NAUSEA 06/06/16) Sulfa (Sulfonamide Antibiotics) (N/V SEVERE 06/06/16) ciprofloxacin (From CIPRO) (UNKNOWN - PER W10 06/01/17) donepezil (From ARICEPT) (UNKNOWN - PER W-10 06/01/17) Reconcile Medications Acetaminophen (Pain Reliever) 325 MG TABLET 2 TAB PO Q6H PRN PAIN/TEMP>101 ( Reported) Acetaminophen 650 MG SUPP.RECT 1 SUPP AK Q6H PRN PAIN/TEMP>101 (Reported) Albuterol Sulfate 2.5 MG/3 ML (0.083 %) VIAL.NEB 1 Vial INH/IRAIDA Q6H PRN SOB/ WHEEZE (Reported) Alendronate Sodium 70 MG TABLET 1 TAB PO QWED OSTEOPOROSIS (Reported) in the morning, at least 30 minutes before the first food, beverage, or medication of the day Amlodipine Besylate 5 MG TABLET 1 TAB PO DAILY HEART/BP (Reported) Bisacodyl (Biscolax) 10 MG SUPP.RECT 1 SUP AK DAILY PRN CONSTIPATION ( Reported) Calcium (Elemental-Fr Calcarb) (Calcium) 600 MG CALCIUM (1,500 MG) TABLET 1 TAB PO BID SUPPLEMENT (Reported) Cephalexin 250 MG CAPSULE 1 CAP PO QAM PROPHYLAXIS UTI (Reported) Cholecalciferol (Vitamin D3) (Vitamin D) 2,000 UNIT TABLET 1 TAB PO DAILY SUPPLEMENT (Reported) Clopidogrel Bisulfate (Clopidogrel) 75 MG TABLET 1 TAB PO DAILY BLOOD THINNER (Reported) Cyanocobalamin (Vitamin B-12) 1,000 MCG TABLET 1 TAB PO DAILY SUPPLEMENT ( Reported) Dextran 70/Hypromellose (Artificial Tears) 1 EACH DROPERETTE 2 DROP OU BID PRN EYE LUBRICANT (Reported) Docusate Sodium (Colace) 100 MG CAPSULE 1 CAP PO Q12H PRN STOOL SOFTENER ( Reported) Guaifenesin 100 MG/5 ML LIQUID 15 ML PO Q6H PRN COUGH (Reported) Hydralazine HCl 25 MG TABLET 75 MG PO BID HEART/BP (Reported) Hydrochlorothiazide 12.5 MG CAPSULE 1 CAP PO DAILY DIURETIC (Reported) Insulin Detemir (Levemir) 100 UNIT/ML VIAL 12 UNITS SC QAM DM (Reported) Insulin Detemir (Levemir) 100 UNIT/ML VIAL 8 UNITS SC QPM DM (Reported) Insulin Lispro (Humalog) 100 UNIT/ML VIAL DM (Reported) Ipratropium/Albuterol Sulfate (Iprat-Albut 0.5-3(2.5) MG/3 Ml) 0.5 MG-3 MG (2.5 MG BASE)/3 ML AMPUL.NEB 1 VIAL INH Q4H PRN COUGH/SOB (Reported) Magnesium Hydroxide (Milk Of Magnesia) 400 MG/5 ML ORAL.SUSP 30 ML PO Q3D PRN CONSTIPATION (Reported) Melatonin (Melatin) 3 MG TABLET 6 MG PO QPM SLEEP (Reported) Metoprolol Tartrate 25 MG TABLET 0.5 TAB PO BID CAD Multivitamin (Multivitamins) 1 EACH CAPSULE 1 TAB PO DAILY MULTIVITAMIN ( Reported) Na Phos,M-B/Na Phos,Di-Ba (Fleet Enema) 19 GRAM-7 GRAM/118 ML ENEMA 1 E RC DAILY PRN CONSTIPATION (Reported) Naloxone HCl (Narcan) 4 MG/ACTUATION SPRAY 4 MG TODD AD PRN OPIOID INDUCED RESP. DEPRESSIO (Reported) Nitroglycerin (Nitroglycerin Patch) 0.4 MG/HOUR PATCH.TD24 0.4 MG TOP DAILY CAD Polyethylene Glycol 3350 17 GRAM POWD.PACK 1 PAC PO DAILY PRN GI (Reported) Pravastatin Sodium 40 MG TABLET 1 TAB PO DAILY hypercholesterolemia (Reported ) Prednisone 10 MG TABLET STEROID TAPER (Reported) Pregabalin (Lyrica) 200 MG CAPSULE 1 CAP PO QHS NERVE PAIN (Reported) Ranitidine HCl 150 MG CAPSULE 1 CAP PO BID GI (Reported) Rivastigmine Tartrate (Rivastigmine) 6 MG CAPSULE 1 CAP PO BID MEMORY ( Reported) Sennosides (Senokot) 8.6 MG TABLET 2 TAB PO DAILY GI (Reported) Trazodone HCl 50 MG TABLET 25 MG PO PRN PRN AGITATION (Reported) Trazodone HCl 100 MG TABLET 1 TAB PO QPM SLEEP (Reported) Triage Nurses Notes Reviewed? yes HPI: 87F PMH dementia, CVA, IDDM, HTN, HLD, PVD s/p left popliteal stent and left first toe amputation, recurrent UTI sent in from [facility] for hypoxia and shortness of breath. Had been diagnosed with bronchitis earlier in the week and is on day 5 of Doxycycline. Last night became increasingly short of breath, received 2 breathing treatments overnight with no improvement. Also noted worsening bilateral lower extremity swelling to knees overnight. Per nurse at [facility] patient was hypoxic to 89% on room air and had bilateral rhonchi, so was sent in. Patient is primarily Nauruan speaking, daughter is at bedside to translate. Patient feels ill, complains of dry cough and difficulty breathing, with abdominal and lower extremity swelling. She denies headache, lightheadedness, chest pain, nausea, vomiting, diarrhea, dysuria, dark stools. She has decreased appetite and has barely been eating the past few days (she typically eats well). Past History Travel History Traveled to [place] past 21 day No Medical History Any Pertinent Medical History? see below for history Neurological: CVA, dementia, TIA EENT: NONE Cardiovascular: hypertension Respiratory: NONE Gastrointestinal: diverticulitis Hepatic: NONE Renal: urinary incontinence Musculoskeletal: osteoporosis Psychiatric: NONE Endocrine: diabetes Blood Disorders: NONE Cancer(s): NONE MATERIAL MAN/Reproductive: NONE History of MRSA: Yes History of VRE: No History of CDIFF: No Surgical History Surgical History: AMPUTATION OF TOES HYSTERECTOMY Psychosocial History Who do you live with Family Services at Home None What is your primary language Nauruan Family History Hx Contributory? No Review of Systems Review of Systems Constitutional: Reports: no symptoms. EENTM: Reports: no symptoms. Respiratory: Reports: see HPI. Cardiovascular: Reports: no symptoms. GI: Reports: no symptoms. Genitourinary: Reports: no symptoms. Musculoskeletal: Reports: no symptoms. Skin: Reports: no symptoms. Neurological/Psychological: Reports: no symptoms. Hematologic/Endocrine: Reports: no symptoms. Immunologic/Allergic: Reports: no symptoms. All Other Systems: Reviewed and Negative Physical Exam Physical Exam General Appearance: well developed/nourished, mild distress Head: atraumatic, normal appearance Eyes: Bilateral: normal appearance. Ears, Nose, Throat: normal pharynx, hearing grossly normal Neck: normal inspection, supple, full range of motion Respiratory: Diffuse rhonchi bilaterally, worse in bases Cardiovascular: regular rate/rhythm Gastrointestinal: soft, distention Extremities: 1+ edema bilaterally to knees, pulses diminished but intact Neurologic/Psych: awake, alert, oriented x 3, normal mood/affect Skin: intact, normal color, warm/dry Core Measures ACS in differential dx? No CVA/TIA Diagnosis No Sepsis Present: No Sepsis Focused Exam Completed? No Progress Differential Diagnosis: asthma, AMI, altitude sickness, bronchitis, costochondritis, CHF, COPD, musculoskeletal pain, pericarditis, pulmonary embolism, pneumonia, pneumothorax, rib fracture, unstable angina Plan of Care: Orders Procedure Date/time Status CBC WITHOUT DIFFERENTIAL 06/05 0600 Active BASIC ELECTROLYTES PLUS BUN&CR 06/05 06 Active Change service to 06/04 0823 Active TOTAL IRON BINDING CAPACITY 06/04 0610 Active RETICULOCYTE COUNT 06/04 0610 Complete FOLIC ACID 06/04 0610 Active FERRITIN 06/04 0610 Active SERUM IRON 06/04 0610 Active VITAMIN B12 06/04 0610 Active CBC WITHOUT DIFFERENTIAL 06/04 0600 Complete BASIC ELECTROLYTES PLUS BUN&CR 06/04 0600 Active SWALLOW EVALUATION 06/04 UNK Active Evaluate Swallowing 06/04 UNK Complete PT Evaluate & Treat 06/04 UNK Active Lab Add-on Test 06/04 UNK Active Anticipated Discharge 06/[address] CHEST WO IV CONTRAST 06/04 UNK Active AEROSOL CHG 06/03 UNK Complete OXYGEN 06/03 UNK Complete OXYGEN DAILY CHARGE 06/03 UNK Complete AEROSOL CHG 06/02 UNK Complete OXYGEN 06/02 UNK Complete OXYGEN DAILY CHARGE 06/02 UNK Complete OXYGEN SETUP CHG 06/01 UNK Complete AEROSOL CHG 06/01 UNK Complete OXYGEN 06/01 UNK Complete OXYGEN TRANSPORT 06/01 UNK Complete Current Medications Sig/Rachelle Start time Last Medication Dose Stop Time Status Admin Alendronate Sodium 70 MG QWED 06/05 0700 AC (Fosamax) Insulin Detemir 6 UNITS QPM 06/04 2200 AC (Levemir) Metoprolol Tartrate 12.5 MG BID 06/04 1505 AC (Lopressor) Nitroglycerin 0.4 MG DAILY 06/04 1504 AC (Transderm Nitro 10MG (0.4 MG/Hr) Patch) Docusate Sodium 100 MG DAILY 06/03 1255 AC 06/04 (Colace) 0951 Senna/Docusate Sodium 1 TAB AT BEDTIME 06/02 2200 AC 06/03 (Senokot S) 2126 Atorvastatin Calcium 40 MG 1700 06/02 1700 AC 06/03 (Lipitor) 1804 Azithromycin 500 MG DAILY@1400 06/02 1400 AC 06/04 (Zithromax) 1232 Sodium Chloride 250 ML (Normal Saline 0.9%) Ceftriaxone Sodium 1,000 MG DAILY@1330 06/02 1330 AC 06/04 (Rocephin) 1232 Calcium 600 MG BID 06/02 1000 AC 06/04 (Calcium Carbonate 0951 600 MG Tab) Enoxaparin Sodium 40 MG DAILY 06/02 1000 AC 06/04 (Lovenox) 1000 Multivitamins 1 TAB DAILY 06/02 1000 AC 06/04 (Theragran Vitamins) 0952 Trazodone HCl 25 MG DAILY PRN 06/02 1000 AC 06/03 (Desyrel) 2125 Famotidine 20 MG 1/2H B/BREAKF/DINNER 06/02 0700 AC 06/04 (Pepcid) 0635 Hydralazine HCl 75 MG BID 06/01 2200 AC 06/04 (Apresoline) 0958 Melatonin 6 MG QPM 06/01 2200 AC 06/03 (Melatonin) 212 Pregabalin 200 MG AT BEDTIME 06/01 2200 AC 06/03 (Lyrica) 212 Rivastigmine Tartrate 6 MG BID 06/01 2200 AC 06/04 (Exelon) 0952 Trazodone HCl 100 MG QPM 06/01 2200 AC 06/03 (Desyrel) 212 Albuterol Sulfate 3 ML EVERY 4 HRS/AWAKE 06/01 2000 AC 06/04 (Proventil) 114 Ipratropium [place] 2.5 ML EVERY 4 HRS/AWAKE 06/01 2000 AC 06/04 (Atrovent) 1145 Insulin Aspart 0 TIDAC 06/01 1700 AC 06/02 (NovoLOG) 1730 Artificial Tears 1 GTT BID PRN 06/01 1530 AC (Tears Natural) Guaifenesin 15 ML Q6H PRN 06/01 1530 AC (Robitussin) Insulin Detemir 12 UNITS QAM 06/01 1519 AC 06/04 (Levemir) 1003 Cholecalciferol 2,000 IU DAILY 06/01 1517 AC 06/04 (Vitamin D) 0952 Clopidogrel Bisulfate 75 MG DAILY 06/01 1517 AC 06/04 (Plavix) 0952 Cyanocobalamin 1,000 MCG DAILY 06/01 1517 AC 06/04 (Vitamin B12) 0952 Amlodipine Besylate 5 MG DAILY 06/01 1515 AC 06/04 (Norvasc) 0958 Aspirin 81 MG DAILY 06/01 1501 AC 06/04 (Aspirin) 0952 Acetaminophen 650 MG Q6P PRN 06/01 1345 AC 06/03 (Tylenol) 2125 Acetaminophen 1,000 MG Q6P PRN 06/01 1345 AC (Ofirmev) Laboratory Tests 06/04/17 0610: Anion Gap 10, Estimated GFR > 60, BUN/Creatinine Ratio 30.0 H, Iron Pending, TIBC Pending, Ferritin Pending, Vitamin B12 Pending, Folate Pending, CBC w Diff NO MAN DIFF REQ, RBC 2.97 L, MCV 90.5, MCH 30.6, RDW 14.4, MPV 8.4, Gran % 60.4 , Lymphocytes % 19.7 L, Monocytes % 11.4 H, Eosinophils % 8.1 H, Basophils % 0.4, Absolute Granulocytes 3.9, Absolute Lymphocytes 1.3, Absolute Monocytes 0.7 H, Absolute Eosinophils 0.5, Absolute Basophils 0, PUBS MCHC 33.8, Retic Count 1.90 Initial ED EKG: none Departure Departure Disposition: STILL A PATIENT Condition: Stable Clinical Impression Primary Impression: Acute pulmonary edema Secondary Impressions: Acute CHF, Acute hypoxemic respiratory failure Referrals: Zuleyma STERLING,Mayda London (PCP/Family) Departure Forms: Customer Survey General Discharge Information Prescriptions: Current Visit Scripts Nitroglycerin (Nitroglycerin Patch) 0.4 MG TOP DAILY #30 PATCH Metoprolol Tartrate 0.5 TAB PO BID #60 TAB Admission Note Spoke With: Deepa Knight MD Documentation of Exam: Documentation of any treatments & extenuating circumstances including Concerns Regarding Discharge (functional status, medication knowledge or non-compliance, living conditions, etc.) that warrant an admission rather than observation: hypoxia, dyspnea in the setting of acute pulmonary edema with positive troponin requiring IV Lasix. Will admit telemetry floor for IV Lasix, monitoring of I/O, cardiology consult, possible heparin drip, workup of pneumonia. Critical Care Note Critical Care Note Critical Care Time: 30-74 min
[2017-06-01 12:23] LABS: ABSOLUTE BASOPHIL COUNT 0 /CUMM (0.0-0.2); ABSOLUTE EOSINOPHIL COUNT 0.5 /CUMM (0.0-0.7); ABSOLUTE GRANULOCYTE CT 10.1 /CUMM (1.4-6.5); ABSOLUTE LYMPH COUNT 0.9 /CUMM (1.2-3.4); ABSOLUTE MONOCYTE COUNT 1.1 /CUMM (0.10-0.60); BASOPHIL % 0.1 % (0.0-2.0); EOSINOPHIL % 3.8 % (0-5); GRANULOCYTE % 80.2 % (42.2-75.2); MEAN CORPUSCULAR HGB 30.2 PG (27.0-31.0); MEAN CORPUSCULAR HGB CONC 33.2 G/DL (33.0-37.0); MEAN CORPUSCULAR VOLUME 90.9 FL (81.0-99.0); MEAN PLATELET VOLUME 8.1 FL (7.4-10.4); PLATELET COUNT 245 /CUMM (130-400); RBC DISTRIBUTION WIDTH 14.2 % (11.5-14.5); RED BLOOD CELL CT 3.63 /CUMM (4.20-5.40); WHITE BLOOD CELL COUNT 12.6 /CUMM (4.8-10.8)
--- NOTE | 2017-06-01 13:37 | History & Physical ---
Thai STERLING,Peter 06/01/17 1336: General Information and HPI MD Statement: I have seen and personally examined JOSAFAT CONTRERAS and documented this H&P. The patient is a 87 year old F who presented with ACUTE SHORTNESS OF BREATH. Source of Information: family Exam Limitations: language barrier, [place] speaker History of Present Illness: 87 yo F with pmh of CVA 6 years ago with no residual neurologic deficit, worsening dementia but functional in her daily activities, hypertension, hyperlipidemia, type 1 diabetes, PVD status post left popliteal stent and left first toe amputation, urinary incontinence, osteoarthritis, recurrent UTI until 6 months ago, resides in [facility], was sent in for worsening shortness of breath and mildly productive cough- whitish sputum on/off. She was diagnosed with bronchitis clinically 5 days ago for cough, shortness of breath, and was placed on doxycycline and tapering dose of prednisone 30 mg today. Her dyspnea did not improve even after repeat nebulizations, and was hypoxic to 89% on room air, which made her decide to come to the ED. She is [place] speaking lady, so all her history was translated by her daughter who is a nurse. The patient denied any chest pain, palpitations, lightheadedness, nausea, vomiting, sweating, fever, prolonged immobilization, or recent travel. Of note, she admitted to having bilateral pedal edema chronically. She does not smoke. Allergies/Medications Allergies: Coded Allergies: codeine (Severe, HALLUCINATIONS, NAUSEA 06/06/16) oxycodone (From Percocet) (Severe, HALLUCINATIONS, NAUSEA 06/06/16) Sulfa (Sulfonamide Antibiotics) (N/V SEVERE 06/06/16) ciprofloxacin (From CIPRO) (UNKNOWN - PER W10 06/01/17) donepezil (From ARICEPT) (UNKNOWN - PER W-10 06/01/17) Home Med list Acetaminophen (Pain Reliever) 325 MG TABLET 2 TAB PO Q6H PRN PAIN/TEMP>101 ( Reported) Acetaminophen 650 MG SUPP.RECT 1 SUPP NM Q6H PRN PAIN/TEMP>101 (Reported) Albuterol Sulfate 2.5 MG/3 ML (0.083 %) VIAL.NEB 1 Vial INH/IRAIDA Q6H PRN SOB/ WHEEZE (Reported) Alendronate Sodium 70 MG TABLET 1 TAB PO QWED OSTEOPOROSIS (Reported) in the morning, at least 30 minutes before the first food, beverage, or medication of the day Amlodipine Besylate 5 MG TABLET 1 TAB PO DAILY HEART/BP (Reported) Bisacodyl (Biscolax) 10 MG SUPP.RECT 1 SUP NM DAILY PRN CONSTIPATION ( Reported) Calcium (Elemental-Fr Calcarb) (Calcium) 600 MG CALCIUM (1,500 MG) TABLET 1 TAB PO BID SUPPLEMENT (Reported) Cephalexin 250 MG CAPSULE 1 CAP PO QAM PROPHYLAXIS UTI (Reported) Cholecalciferol (Vitamin D3) (Vitamin D) 2,000 UNIT TABLET 1 TAB PO DAILY SUPPLEMENT (Reported) Clopidogrel Bisulfate (Clopidogrel) 75 MG TABLET 1 TAB PO DAILY BLOOD THINNER (Reported) Cyanocobalamin (Vitamin B-12) 1,000 MCG TABLET 1 TAB PO DAILY SUPPLEMENT ( Reported) Dextran 70/Hypromellose (Artificial Tears) 1 EACH DROPERETTE 2 DROP OU BID PRN EYE LUBRICANT (Reported) Docusate Sodium (Colace) 100 MG CAPSULE 1 CAP PO Q12H PRN STOOL SOFTENER ( Reported) Guaifenesin 100 MG/5 ML LIQUID 15 ML PO Q6H PRN COUGH (Reported) Hydralazine HCl 25 MG TABLET 75 MG PO BID HEART/BP (Reported) Hydrochlorothiazide 12.5 MG CAPSULE 1 CAP PO DAILY DIURETIC (Reported) Insulin Detemir (Levemir) 100 UNIT/ML VIAL 12 UNITS SC QAM DM (Reported) Insulin Detemir (Levemir) 100 UNIT/ML VIAL 8 UNITS SC QPM DM (Reported) Insulin Lispro (Humalog) 100 UNIT/ML VIAL DM (Reported) Ipratropium/Albuterol Sulfate (Iprat-Albut 0.5-3(2.5) MG/3 Ml) 0.5 MG-3 MG (2.5 MG BASE)/3 ML AMPUL.NEB 1 VIAL INH Q4H PRN COUGH/SOB (Reported) Magnesium Hydroxide (Milk Of Magnesia) 400 MG/5 ML ORAL.SUSP 30 ML PO Q3D PRN CONSTIPATION (Reported) Melatonin (Melatin) 3 MG TABLET 6 MG PO QPM SLEEP (Reported) Multiple Vitamin (Multivitamins) 1 EACH TABLET 1 TAB PO DAILY SUPPLEMENT ( Reported) Na Phos,M-B/Na Phos,Di-Ba (Fleet Enema) 19 GRAM-7 GRAM/118 ML ENEMA 1 E RC DAILY PRN CONSTIPATION (Reported) Naloxone HCl (Narcan) 4 MG/ACTUATION SPRAY 4 MG TODD AD PRN OPIOID INDUCED RESP. DEPRESSIO (Reported) Polyethylene Glycol 3350 17 GRAM POWD.PACK 1 PAC PO DAILY PRN GI (Reported) Pravastatin Sodium 40 MG TABLET 1 TAB PO DAILY hypercholesterolemia (Reported ) Prednisone 10 MG TABLET STEROID TAPER (Reported) Pregabalin (Lyrica) 200 MG CAPSULE 1 CAP PO QHS NERVE PAIN (Reported) Ranitidine HCl 150 MG CAPSULE 1 CAP PO BID GI (Reported) Rivastigmine Tartrate (Rivastigmine) 6 MG CAPSULE 1 CAP PO BID MEMORY ( Reported) Sennosides (Senokot) 8.6 MG TABLET 2 TAB PO DAILY GI (Reported) Trazodone HCl 100 MG TABLET 1 TAB PO QPM SLEEP (Reported) Trazodone HCl 50 MG TABLET 1 TAB PO DAILY UNKNOWN (Reported) Past History Travel History Traveled to [place] past 21 day No Medical History Neurological: CVA, dementia, TIA EENT: NONE Cardiovascular: hypertension, ISCHEMIC HEART DISEASE Respiratory: bronchitis, PNA Gastrointestinal: diverticulitis Hepatic: NONE Renal: urinary incontinence, UTI Musculoskeletal: osteoporosis Psychiatric: MDD Endocrine: diabetes Blood Disorders: NONE Cancer(s): NONE RN INTERNAL MEDICINE/Reproductive: NONE History of MRSA: Yes History of VRE: No History of CDIFF: No Surgical History Surgical History: AMPUTATION OF TOES HYSTERECTOMY Past Family/Social History Family History Relations & Conditions if any MOTHER Relation not specified for: FH: liver cancer Psychosocial History Where do you live? Extended Care Facility Services at Home: None Primary Language: [place] Smoking Status: Unknown If Ever Smoked ETOH Use: denies use Illicit Drug Use: denies illicit drug use Living Will? Daughters will bring in tomorrow Functional Ability ADLs Needs Assist: dressing, eating, toileting, bathing. Ambulation: wheel-chair dependent IADLs Needs Assist: shopping, housework, finances, food prep, telephone, transportation, medication admin. Review of Systems Review of Systems Constitutional: Reports: no symptoms. EENTM: Reports: no symptoms. Cardiovascular: Reports: see HPI, edema. Respiratory: Reports: see HPI, cough, short of breath, sputum production. GI: Reports: no symptoms. Genitourinary: Reports: no symptoms. Musculoskeletal: Reports: no symptoms. Skin: Reports: lesions. Neurological/Psychological: Reports: see HPI. Hematologic/Endocrine: Reports: no symptoms. 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 moist/pink Neck Supple, No JVD Lymphatic Cervical nl Cardiovascular Regular Rate, Normal S1, Normal S2, no murmur appreciated Lungs b/l wheezes as well as crackles Abdomen Normal Bowel Sounds, Soft, No Tenderness, slightly distended, but not tender Neurological Normal Speech, Strength at 5/5 X4 Ext, Normal Tone, Sensation Intact, Cranial Nerves 3-12 NL, Reflexes 2+, difficult to assess due to language barrier Extremities No Clubbing, No Cyanosis, Normal Pulses, amputations as mentioned above; b/l pedal edema (chronic)- L slightly > R Vascular Normal Pulses Sepsis Peripheral Pulse Location: Radial Sepsis Peripheral Pulse Exam: Normal Sepsis Cap Refill Exam: <2 Sec Last 24 Hrs of Labs/Justo: Laboratory Tests 06/01/17 1209: Anion Gap 13, Estimated GFR > 60, BUN/Creatinine Ratio 32.5 H, Glucose 300 H, Calcium 9.2, Total Bilirubin 0.7, AST 21, ALT 26, Alkaline Phosphatase 143 H, Troponin I 0.11 *H, Mjb-[id number]-Epokuwxqdvd Pept 2770 H, Total Protein 7.9, Albumin 4.2, Globulin 3.7, Albumin/Globulin Ratio 1.1, CBC w Diff NO MAN DIFF REQ, RBC 3.63 L, MCV 90.9, MCH 30.2, RDW 14.2, MPV 8.1, Gran % 80.2 H, Lymphocytes % 7.4 L, Monocytes % 8.5, Eosinophils % 3.8, Basophils % 0.1, Absolute Granulocytes 10.1 H, Absolute Lymphocytes 0.9 L, Absolute Monocytes 1.1 H, Absolute Eosinophils 0.5, Absolute Basophils 0, PUBS MCHC 33.2 Microbiology 06/01 1309 LOWER RESP: Respiratory Culture - ORD 06/01 130 LOWER RESP: Gram Stain - ORD Diagnostic Data EKG Results Normal sinus rhythm, with rate 90, normal intervals, a 5 feet 6 has 1 mm and [address] segment depression respectively, aVL has new T-wave inversions, compared to EKG done 7 months ago, poor R-wave progression CXR Results IMPRESSION: No acute cardiopulmonary disease. DICTATED BY: Karmen Vazquez MD DATE/TIME DICTATED:06/01/171318 CABLE OPERATOR:GARETH DATE/TIME TRANSCRIBED:06/01/171318 Assessment/Plan Assessment: 87 yo F with pmh of CVA 6 years ago with no residual neurologic deficit, worsening dementia but functional in her daily activities, hypertension, hyperlipidemia, type 1 diabetes, PVD status post left popliteal stent and left first toe amputation, urinary incontinence, osteoarthritis, recurrent UTI until 6 months ago, resides in [facility], was sent in for worsening shortness of breath and mildly productive cough while on oral antibiotics and oral prednisone. Her physical examination is suggestive of fluid overload/ acute CHF with proBNP 2770, as well as pneumonia given her recent history of bronchitis and worsening of symptoms while still on oral antibiotics. Plan to admit her in telemetry, IV Lasix 40 mg twice a day while also monitoring her renal function and blood pressure closely. Will get an echocardiogram, serial troponin and EKG to rule out ACS, and cardiology consultation regarding her new onset features suggestive of acute CHF. Will continue her home medications for blood pressure control. At the same time, will continue with IV antibiotics for community acquired pneumonia and follow-up on the cultures as see worsened while still on oral antibiotics. Will have TRC evaluation/O2 PRN, and nebulizations regularly. Diabetic diet, insulin as per home medication, Accu-Cheks 3 times a day/before meals and at bedtime. DVT prophylaxis with Lovenox. Code status: DNR/DNI. As Ranked By This Provider Problem List: 1. Acute CHF 2. Community acquired pneumonia Core Measures/Misc (02/17) Acute Coronary Syndrome ACS Diagnosis: No Congestive Heart Failure Congestive Heart Failure Diagnosis Yes Last Known EF % 65 Cerebrovascular Accident CVA/TIA Diagnosis: No VTE (View Protocol) VTE Risk Factors Age>40 No Mechanical VTE Prophylaxis d/t N/A MechProphylax Ordered No VTE Pharm Prophylaxis d/t NA PharmProphylax ordered Sepsis (View protocol) Sepsis Present: No Deepa Knight MD 06/01/17 1451: Attending MD Review Statement Attending Statement Attending MD Statement: examined this patient, discuss w/resident/PA/TOP STEEP TENDER, agreed w/resident/PA/TOP STEEP TENDER, discussed with family, reviewed EMR data (avail), reviewed images Attending Assessment/Plan: 87-year-old [place]-speaking female, [facility] with multiple medical problems including diabetes, peripheral vascular disease status post stent with left great toe amputation and right partial great toe amputation, CVA in the past and a history of recurrent UTIs. She was being treated with doxy and prednisone at the prison for bronchitis. She worsened acutely and is now coming in with uncontrolled hypertension, severe shortness of breath with clinical exam suggestive of acute CHF and proBNP that's 2770. Her troponin is also borderline at 0.11. Will bring her into telemetry, diurese her aggressively with Lasix 40 IV twice a day watching her renal function and her lytes closely. Get an echocardiogram and a cardiology evaluation. Will also trend her troponins and serial enzyme and EKG. Continue Plavix and if no contraindication start her on baby aspirin. She has a low-grade temp and cough as well having failed outpatient by mouth antibiotics. She also has a white count with a left shift. We'll treat her for community-acquired pneumonia and follow-up on the cultures. Put her on DVT prophylaxis and follow closely.
[2017-06-01] MEDS ORDERED: TRAZODONE HCL100 M1 PO (13:58)
--- NOTE | 2017-06-01 14:08 | RADIOLOGY REPORT ---
EXAMINATION: XR PORTABLE CHEST CLINICAL INFORMATION: Fever, cough. COMPARISON: Chest done on 10/29/2016. TECHNIQUE: Portable frontal view of the chest was obtained. FINDINGS: Both lung nguyen are symmetrically expanded and appear clear. The cardiac mediastinal silhouette is within normal limit. There is no pleural effusion present. The visualized upper abdomen is unremarkable. No significant change since prior study. IMPRESSION: No acute cardiopulmonary disease.
--- NOTE | 2017-06-01 14:11 | Admission Certification ---
Admission Certification Certification Statement - As attending physician, I certify that at the time of - admission, based on clinical presentation, severity of - symptoms, need for further diagnostic testing and - therapeutic interventions, and risk of adverse outcomes - without in-hospital treatment, in my clinical assessment, - this patient requires an acute hospital stay for a minimum - of two nights or longer. I have also considered psychsocial - factors such as support system, advanced age, financial - issues, cognitive issues, and failed out-patient treatments, - past re-admission history, safety of patient, and lack of - compliance as applicable. Specific rationale supporting this admission is: Acute CHF exacerbation, suspected community-acquired pneumonia.
[2017-06-01] MEDS ORDERED: TRAZODONE HCL50 M1 PO ×2 (14:22→20:07)
[2017-06-01] MEDS ORDERED: NARCAN4 MG NAS (14:25)
[2017-06-01] MEDS ORDERED: AMLODIPINE BESYL5 M1 PO (14:27)
[2017-06-01] MEDS ORDERED: MULTIVITAMINS1 EAC9 PO (14:31)
[2017-06-01] MEDS ORDERED: CALCIUM600 M3 PO (14:33)
[2017-06-01] MEDS ORDERED: PAIN RELIEVER325 MG PO (14:36)
[2017-06-01] MEDS ORDERED: ACETAMINOPHEN650 M5 PR (14:40)
[2017-06-01] MEDS ORDERED: HUMALOG100 UNIT/2 SC (14:42)
[2017-06-01] MEDS ORDERED: POLYETHYLENE GL17 GM PO (14:43)
[2017-06-01] MEDS ORDERED: BISCOLAX10 M1 PR (14:45)
[2017-06-01] MEDS ORDERED: MILK OF MA400 MG/52 PO (14:46)
[2017-06-01] MEDS ORDERED: FLEET ENEMA133 ML RC (14:48)
[2017-06-01] MEDS ORDERED: GUAIFENESI100 MG/5 M PO (14:48)
[2017-06-01] MEDS ORDERED: IPRAT-ALBUT 0.5-3 ML INH (14:52)
[2017-06-01] MEDS ORDERED: ALBUTEROL2.5 MG/3 M INH/SOL (14:53)
[2017-06-01] MEDS ORDERED: ARTIFICIAL TEA1 EACH OU (14:54)
[2017-06-01] MEDS ORDERED: RANITIDINE HCL150 M2 PO (15:00)
[2017-06-01] MEDS ORDERED: HYDROCHLOROTH12.5 M3 PO (15:00)
[2017-06-01] MEDS ORDERED: MELATIN3 MG PO (15:01)
[2017-06-01] MEDS ORDERED: LEVEMIR100 UNIT/1 SC ×2 (15:02→15:03)
[2017-06-01] MEDS ORDERED: SENOKOT8.6 M2 PO (15:03)
[2017-06-01] MEDS ORDERED: PREDNISONE10 M2 PO (15:05)
--- NOTE | 2017-06-01 17:14 | Cons- Cardiology ---
General Information and HPI Consulting Request Date of Consult: 06/01/17 Requested By: Deepa Knight MD Reason for Consult: Dyspnea Source of Information: family, old records Exam Limitations: poor historian History of Present Illness: This is an 87-year-old female with a medical history of dementia, CVA, diabetes, peripheral vascular disease with prior stents and prior amputation, hypertension , and hyperlipidemia. The patient is a limited historian and HPI was obtained from her daughter and the medical record. She was apparently sent from [facility] for worsening shortness of breath along with hypoxia and a dry cough which was treated with antibiotics. She had not been complaining of chest pain or palpitations. Her daughter tells me she has chronic lower extremity edema from peripheral vascular disease which has not been rapidly increasing. No recent focal weakness or syncope. She apparently has had some decreased appetite. On my examination in the emergency room the patient was resting comfortably without tachypnea. Allergies/Medications Allergies: Coded Allergies: codeine (Severe, HALLUCINATIONS, NAUSEA 06/06/16) oxycodone (From Percocet) (Severe, HALLUCINATIONS, NAUSEA 06/06/16) Sulfa (Sulfonamide Antibiotics) (N/V SEVERE 06/06/16) ciprofloxacin (From CIPRO) (UNKNOWN - PER W10 06/01/17) donepezil (From ARICEPT) (UNKNOWN - PER W-10 06/01/17) Home Med List: Acetaminophen (Pain Reliever) 325 MG TABLET 2 TAB PO Q6H PRN PAIN/TEMP>101 ( Reported) Acetaminophen 650 MG SUPP.RECT 1 SUPP [place] Q6H PRN PAIN/TEMP>101 (Reported) Albuterol Sulfate 2.5 MG/3 ML (0.083 %) VIAL.NEB 1 Vial INH/IRAIDA Q6H PRN SOB/ WHEEZE (Reported) Alendronate Sodium 70 MG TABLET 1 TAB PO QWED OSTEOPOROSIS (Reported) in the morning, at least 30 minutes before the first food, beverage, or medication of the day Amlodipine Besylate 5 MG TABLET 1 TAB PO DAILY HEART/BP (Reported) Bisacodyl (Biscolax) 10 MG SUPP.RECT 1 SUP [place] DAILY PRN CONSTIPATION ( Reported) Calcium (Elemental-Fr Calcarb) (Calcium) 600 MG CALCIUM (1,500 MG) TABLET 1 TAB PO BID SUPPLEMENT (Reported) Cephalexin 250 MG CAPSULE 1 CAP PO QAM PROPHYLAXIS UTI (Reported) Cholecalciferol (Vitamin D3) (Vitamin D) 2,000 UNIT TABLET 1 TAB PO DAILY SUPPLEMENT (Reported) Clopidogrel Bisulfate (Clopidogrel) 75 MG TABLET 1 TAB PO DAILY BLOOD THINNER (Reported) Cyanocobalamin (Vitamin B-12) 1,000 MCG TABLET 1 TAB PO DAILY SUPPLEMENT ( Reported) Dextran 70/Hypromellose (Artificial Tears) 1 EACH DROPERETTE 2 DROP OU BID PRN EYE LUBRICANT (Reported) Docusate Sodium (Colace) 100 MG CAPSULE 1 CAP PO Q12H PRN STOOL SOFTENER ( Reported) Guaifenesin 100 MG/5 ML LIQUID 15 ML PO Q6H PRN COUGH (Reported) Hydralazine HCl 25 MG TABLET 75 MG PO BID HEART/BP (Reported) Hydrochlorothiazide 12.5 MG CAPSULE 1 CAP PO DAILY DIURETIC (Reported) Insulin Detemir (Levemir) 100 UNIT/ML VIAL 12 UNITS SC QAM DM (Reported) Insulin Detemir (Levemir) 100 UNIT/ML VIAL 8 UNITS SC QPM DM (Reported) Insulin Lispro (Humalog) 100 UNIT/ML VIAL DM (Reported) Ipratropium/Albuterol Sulfate (Iprat-Albut 0.5-3(2.5) MG/3 Ml) 0.5 MG-3 MG (2.5 MG BASE)/3 ML AMPUL.NEB 1 VIAL INH Q4H PRN COUGH/SOB (Reported) Magnesium Hydroxide (Milk Of Magnesia) 400 MG/5 ML ORAL.SUSP 30 ML PO Q3D PRN CONSTIPATION (Reported) Melatonin (Melatin) 3 MG TABLET 6 MG PO QPM SLEEP (Reported) Multiple Vitamin (Multivitamins) 1 EACH TABLET 1 TAB PO DAILY SUPPLEMENT ( Reported) Na Phos,M-B/Na Phos,Di-Ba (Fleet Enema) 19 GRAM-7 GRAM/118 ML ENEMA 1 E RC DAILY PRN CONSTIPATION (Reported) Naloxone HCl (Narcan) 4 MG/ACTUATION SPRAY 4 MG TODD AD PRN OPIOID INDUCED RESP. DEPRESSIO (Reported) Polyethylene Glycol 3350 17 GRAM POWD.PACK 1 PAC PO DAILY PRN GI (Reported) Pravastatin Sodium 40 MG TABLET 1 TAB PO DAILY hypercholesterolemia (Reported ) Prednisone 10 MG TABLET STEROID TAPER (Reported) Pregabalin (Lyrica) 200 MG CAPSULE 1 CAP PO QHS NERVE PAIN (Reported) Ranitidine HCl 150 MG CAPSULE 1 CAP PO BID GI (Reported) Rivastigmine Tartrate (Rivastigmine) 6 MG CAPSULE 1 CAP PO BID MEMORY ( Reported) Sennosides (Senokot) 8.6 MG TABLET 2 TAB PO DAILY GI (Reported) Trazodone HCl 100 MG TABLET 1 TAB PO QPM SLEEP (Reported) Trazodone HCl 50 MG TABLET 1 TAB PO DAILY UNKNOWN (Reported) Current Medications: Current Medications Sig/Rachelle Start time Last Medication Dose Route Stop Time Status Admin Acetaminophen 650 MG Q6P PRN 06/01 1345 AC PO Acetaminophen 1,000 MG Q6P PRN 06/01 1345 AC IV Acetaminophen 650 MG ONCE ONE 06/01 1330 DC 06/01 PO 06/01 1331 1331 Acetaminophen 0 .STK-MED ONE 06/01 1327 DC PO Albuterol Sulfate 3 ML ONCE ONE 06/01 1145 DC 06/01 INH 06/01 1146 1208 Alendronate Sodium 70 MG QWED 06/05 0700 AC PO Amlodipine Besylate 5 MG DAILY 06/01 1515 AC PO Artificial Tears 1 GTT BID PRN 06/01 1530 AC OU Aspirin 81 MG DAILY 06/01 1501 AC PO Azithromycin 500 MG DAILY@1400 06/02 1400 AC Sodium Chloride 250 ML IV Azithromycin 500 MG ONCE ONE 06/01 1315 DC 06/01 Sodium Chloride 250 ML IV 06/01 1414 1413 Ceftriaxone Sodium 1,000 MG DAILY@1330 06/02 1330 AC IV Ceftriaxone Sodium 0 .STK-MED ONE 06/01 1327 DC .ROUTE Ceftriaxone Sodium 1,000 MG ONCE ONE 06/01 1315 DC 06/01 IV 06/01 1316 1330 Cholecalciferol 2,000 IU DAILY 06/01 1517 AC PO Clopidogrel Bisulfate 75 MG DAILY 06/01 1517 AC PO Cyanocobalamin 1,000 MCG DAILY 06/01 1517 AC PO Enoxaparin Sodium 30 MG DAILY 06/02 1000 CAN SC Enoxaparin Sodium 40 MG DAILY 06/02 1000 AC SC Furosemide 40 MG ONCE ONE 06/01 1200 DC 06/01 IV 06/01 1201 1159 Furosemide 0 .STK-MED ONE 06/01 1159 DC IV Guaifenesin 15 ML Q6H PRN 06/01 1530 AC PO Hydralazine HCl 75 MG BID 06/01 2200 AC PO Hydrochlorothiazide 12.5 MG DAILY 06/01 1518 AC PO Insulin Aspart 0 TIDAC 06/01 1700 AC SC Insulin Detemir 8 UNITS QPM 06/01 2200 AC SC Insulin Detemir 12 UNITS QAM 06/01 1519 AC SC Ipratropium Kellogg 2.5 ML ONCE ONE 06/01 1145 DC 06/01 INH 06/01 1146 1207 Melatonin 6 MG QPM 06/01 2200 AC PO Senna/Docusate Sodium 1 TAB AT BEDTIME PRN 06/01 1345 AC PO Review of Systems Review of Systems: Unable to obtain as the patient is a limited historian Past History Travel History Traveled to [place] past 21 day No Medical History Neurological: CVA, dementia, TIA EENT: NONE Cardiovascular: hypertension, ISCHEMIC HEART DISEASE Respiratory: bronchitis, PNA Gastrointestinal: diverticulitis Hepatic: NONE Renal: urinary incontinence, UTI Musculoskeletal: osteoporosis Psychiatric: MDD Endocrine: diabetes Blood Disorders: NONE Cancer(s): NONE 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 Extended Care Facility Who Do You Live With? child Services at Home: None Primary Language: Polish Power of Environmental Director/HCP? yes Functional Ability ADLs Needs Assist: dressing, eating, toileting, bathing. Ambulation: walker IADLs Needs Assist: shopping, housework, finances, food prep, telephone, transportation, medication admin. Exam & Diagnostic Data Vital Signs and I&O Vital Signs Date Time Temp Pulse Resp B/P B/P Pulse O2 O2 Flow FiO2 Mean Ox Delivery Rate 06/01 1440 99.2 70 16 156/56 99 Nasal 2.0L Cannula 06/01 1341 100.2 78 21 162/58 99 Nasal 2.0L Cannula 06/01 1331 100.1 06/01 1210 96 Nasal 2.0L Cannula 06/01 1201 178/62 06/01 1200 98 Nasal 2.0L Cannula 06/01 1143 100.1 89 30 216/88 89 Room Air Physical Exam: General: no apparent distress. Eyes: No obvious scleral icterus. HEENT: No jugular venous distention or abnormal jugular venous pulsations. Cardiovascular: Normal intensity S1/S2. Regular. Respiratory: No rales or rhonchi Abdomen: Soft, nontender with no guarding or rebound tenderness. Musculoskeletal: No clubbing or cyanosis noted; 1+ lower extremity edema bilaterally Skin: Warm Lymph: No gross lymphadenopathy. Labs/Justo Results: Laboratory Tests 06/01 1209 Chemistry Sodium (137 - 145 mmol/L) 132 L Potassium (3.5 - 5.1 mmol/L) 4.0 Chloride (98 - 107 mmol/L) 90 L Carbon Dioxide (22 - 30 mmol/L) 29 Anion Gap (5 - 16) 13 BUN (7 - 17 mg/dL) 26 H Creatinine (0.5 - 1.0 mg/dL) 0.8 Estimated GFR (>60 ml/min) > 60 BUN/Creatinine Ratio (7 - 25 %) 32.5 H Glucose (65 - 99 mg/dL) 300 H Calcium (8.4 - 10.2 mg/dL) 9.2 Total Bilirubin (0.2 - 1.3 mg/dL) 0.7 AST (14 - 36 U/L) 21 ALT (9 - 52 U/L) 26 Alkaline Phosphatase (<127 U/L) 143 H Troponin I (< 0.11 ng/ml) 0.11 *H [id number]-Ifiuajqtrxp Pept (<125 pg/mL) 2770 H Total Protein (6.3 - 8.2 g/dL) 7.9 Albumin (3.5 - 5.0 g/dL) 4.2 Globulin (1.9 - 4.2 gm/dL) 3.7 Albumin/Globulin Ratio (1.1 - 2.2 %) 1.1 Hematology CBC w Diff NO MAN DIFF REQ WBC (4.8 - 10.8 /CUMM) 12.6 H RBC (4.20 - 5.40 /CUMM) 3.63 L Hgb (12.0 - 16.0 G/DL) 11.0 L Hct (37 - 47 %) 33.0 L MCV (81.0 - 99.0 FL) 90.9 MCH (27.0 - 31.0 PG) 30.2 RDW (11.5 - 14.5 %) 14.2 Plt Count (130 - 400 /CUMM) 245 MPV (7.4 - 10.4 FL) 8.1 Gran % (42.2 - 75.2 %) 80.2 H Lymphocytes % (20.5 - 51.1 %) 7.4 L Monocytes % (1.7 - 9.3 %) 8.5 Eosinophils % (0 - 5 %) 3.8 Basophils % (0.0 - 2.0 %) 0.1 Absolute Granulocytes (1.4 - 6.5 /CUMM) 10.1 H Absolute Lymphocytes (1.2 - 3.4 /CUMM) 0.9 L Absolute Monocytes (0.10 - 0.60 /CUMM) 1.1 H Absolute Eosinophils (0.0 - 0.7 /CUMM) 0.5 Absolute Basophils (0.0 - 0.2 /CUMM) 0 PUBS MCHC (33.0 - 37.0 G/DL) 33.2 Diagnostic Data EKG Results Tracing was personally reviewed and shows sinus rhythm at 90 bpm with possible left ventricular hypertrophy CXR Results No acute cardiopulmonary disease. Assessment/Plan Assessment/Plan 1. ?CAP 2. Dementia 3. History of hypertension/hyperlipidemia 4. History of diabetes mellitus 5. History of peripheral vascular disease with prior amputation 6. Prior CVA 7. Minimal troponin elevation of unclear etiology 8. Chronic lower extremity edema per her family At this time I am not convinced the patient has evidence of congestive heart failure. Chest x-ray is reasonably unremarkable and she does not have JVD on exam. The minimal BNP elevation is nonspecific. Would recommend following her troponins serially. Maintain on telemetry. Obtain an echocardiogram. Continue her antiplatelet therapy and resume statin therapy. If blood pressure remains above goal can increase the hydralazine to 3 times a day dosing. Antibiotics per the medical team. Nader Sanches MD [facility] Consult Acknowledgment - Thank you for your consult request.
[2017-06-01 17:25] VITALS: BP 146/60
[2017-06-01 20:00] VITALS: BP 190/78
[2017-06-02 00:40] VITALS: BP 120/50
[2017-06-02] MEDS ORDERED: MULTIVITAMINS1 EAC8 PO (06:12)
[2017-06-02 06:42] VITALS: BP 130/50
--- NOTE | 2017-06-02 08:22 | PN- Housestaff ---
Estela STERLING,[facility] 06/02/17 0821: Subjective Follow-up For: dyspnea Tele-Events Since Last Visit: NSR with heart rate 70-81. No overnight events. Subjective: Patient was seen and examined at bedside. Review of Systems Constitutional: Reports: no symptoms. Objective Last 24 Hrs of Vital Signs/I&O Vital Signs Date Time Temp Pulse Resp B/P B/P Pulse O2 O2 Flow FiO2 Mean Ox Delivery Rate 06/02 0800 Nasal 2.0L Cannula 06/02 0642 98.3 70 20 130/50 96 Nasal 2.0L Cannula 06/02 0238 Nasal 2.0L Cannula 06/02 0040 87 120/50 06/01 2252 95 Nasal 2.0L Cannula 06/01 2032 87 190/78 06/01 2000 98.7 85 26 190/78 95 Nasal Cannula 06/01 1818 Nasal 2.0L Cannula 06/01 1725 98.2 79 20 146/60 96 Nasal 2.0L Cannula 06/01 1721 99 Nasal 2.0L Cannula 06/01 1440 99.2 70 16 156/56 99 Nasal 2.0L Cannula 06/01 1341 100.2 78 21 162/58 99 Nasal 2.0L Cannula 06/01 1331 100.1 06/01 1210 96 Nasal 2.0L Cannula 06/01 1201 178/62 06/01 1200 98 Nasal 2.0L Cannula 06/01 1143 100.1 89 30 216/88 89 Room Air Intake & Output 06/02 1600 06/02 0800 06/02 0000 Intake Total 50 480 Output Total 550 Balance 50 -70 Intake, Oral 50 480 Number 0 0 Bowel Movements Output, Urine 550 Patient 161 lb Weight Weight Bed scale Measurement Method Physical Exam General Appearance: Alert, Cooperative, No Acute Distress, oriented x1 Skin: No Rashes, No Breakdown Skin Temp/Moisture Exam: Warm/Dry Sepsis Skin Exam (color): Normal for Ethnicity HEENT: Atraumatic Cardiovascular: Normal S1, Normal S2, No Murmurs Lungs: diffuse expiratory wheezing. Bibasilar inspiratory crackles Abdomen: Soft, No Tenderness Neurological: Normal Speech Extremities: No Edema Assessment/Plan Assessment: 87 yo F with pmh of CVA 6 years ago with no residual neurologic deficit, worsening dementia but functional in her daily activities, hypertension, hyperlipidemia, type 1 diabetes, PVD status post left popliteal stent and left first toe amputation, urinary incontinence, osteoarthritis, recurrent UTI until 6 months ago, resident of [facility], was sent in for worsening shortness of breath and mildly productive cough while on oral antibiotics and oral prednisone. Assessment and Plan: Community Acquired Pneumonia: * Continue antibiotic treatement with IV Ceftriaxone and Azithromycin * TRC/nebs as needed * Continue oxygen supplementation to maintain saturations >92%. Will wean off as tolerated. * IV lasix has been discontinued due to low suspicion of CHF. Type II [place]: * Elevated troponins on admission were likely in the setting of Type II VA * Would continue her on cardiac medications for now. * If blood pressure remains above goal can increase the hydralazine to 3 times a day dosing * Keep lasix and HCTZ on hold * Echocardiogram - pending. Anemia: * Patient has had a 2 point drop in Hb. Could be dilutional * currently at 9.0 * Stool guiacs - pending * will monitor with serial CBC * f/u reticulocyte count. Diabetic diet, insulin as per home medication, Accu-Cheks 3 times a day/before meals and at bedtime. DVT prophylaxis with Lovenox. Code status: DNR/DNI. Problem List: 1. Acute hypoxemic respiratory failure Pain Ratin Pain Location: none Pain Goal: Remain pain free Pain Plan: none Tomorrow's Labs & Rationales: CBC, BEP Eugene STERLING,Deepa 06/02/17 1112: Attending MD Review Statement Attending Statement Attending MD Statement: examined this patient, discuss w/resident/PA/WELL SERVICES OPERATOR, agreed w/resident/PA/WELL SERVICES OPERATOR, discussed with nursing, reviewed images Attending Assessment/Plan: Appreciate cardiology eval who feels that the patient did not have acute CHF. Stop the IV Lasix. Given the chronic hyponatremia, I have stopped the hydrochlorothiazide as well and need to watch the blood pressure closely. We are treating her with IV ceftriaxone and azithromycin for community-acquired pneumonia. She failed by mouth Doxy and prednisone that was started in the group home. She has a low-grade temp of 100.2 but her white count has come down and will need to watch that closely. We'll also follow-up on the echo results.
[2017-06-02 08:34] LABS: ABSOLUTE BASOPHIL COUNT 0 /CUMM (0.0-0.2); ABSOLUTE LYMPH COUNT 1.2 /CUMM (1.2-3.4); ABSOLUTE MONOCYTE COUNT 0.9 /CUMM (0.10-0.60); BASOPHIL % 0.4 % (0.0-2.0); EOSINOPHIL % 7.8 % (0-5)
[2017-06-02 08:52] LABS: ABSOLUTE EOSINOPHIL COUNT 0.6 /CUMM (0.0-0.7); ABSOLUTE GRANULOCYTE CT 4.4 /CUMM (1.4-6.5); MEAN CORPUSCULAR HGB 30.1 PG (27.0-31.0); MEAN CORPUSCULAR HGB CONC 33.3 G/DL (33.0-37.0); MEAN CORPUSCULAR VOLUME 90.4 FL (81.0-99.0); MEAN PLATELET VOLUME 8.5 FL (7.4-10.4); PLATELET COUNT 220 /CUMM (130-400); RBC DISTRIBUTION WIDTH 14.6 % (11.5-14.5); RED BLOOD CELL CT 2.99 /CUMM (4.20-5.40); WHITE BLOOD CELL COUNT 7.1 /CUMM (4.8-10.8)
[2017-06-02 14:29] VITALS: BP 114/60
[2017-06-03 06:00] VITALS: BP 106/58
--- NOTE | 2017-06-03 07:22 | ECHOCARDIOGRAM REPORT ---
JOSAFAT CONTRERAS Age: 87 : 1930 Gender: F Exam Date: 06/02/2017 11:20 Exam Location: [address] Ht (in): 65 Wt (lb): 160 BSA: 1.84 BP: 130 / 50 Ordering Physician: Peter Andre MD Referring Physician: William Jiménez MD, PhD Technologist: Kathrine Stratton [facility] Room Number: 171 Indications: HEART FAILURE Rhythm: Sinus Technical Quality: good FINDINGS Left Ventricle Normal left ventricular size with mild left ventricular hypertrophy. Normal systolic function with no obvious regional wall motion abnormalities. Normal left ventricular diastolic filling pattern for age. The ejection fraction is visually estimated at 75%. Right Ventricle The right ventricle is normal in size and function. Right Atrium The right atrium is normal in size. Left Atrium The left atrium is normal in size. The interatrial septum is intact. Mitral Valve The mitral valve demonstrates mild annular calcification with normal function. There is mild mitral regurgitation. Aortic Valve Mildly thickened and scleroticl aortic valve without significant stenosis. There is trace aortic regurgitation. Tricuspid Valve The tricuspid valve is normal in structure and function. There is mild tricuspid regurgitation. Pulmonary artery systolic pressure is mildly elevated to 41mmHg. Pulmonic Valve Structurally normal pulmonic valve. There is no pulmonic regurgitation. Pericardium Normal pericardium without effusion. No pleural effusion. Great Vessels Normal aortic root dimension. The aortic arch and great vessels are not seen. CONCLUSIONS 1. Normal EF of 75%. 2. Mild left ventricular hypertrophy. 3. Mild mitral reguirgitation. 4. Mild tricuspid regurgitation. 5. Trace aortic insufficiency. 6. Mild pulmonary hypertension. William Jiménez M.D. (Electronically Signed) Final Date: 03 June 2017 07:21 MEASUREMENTS (Male / Female) Normal Values 2D ECHO LV Diastolic Diameter PLAX 4.7 cm 4.2 - 5.9 / 3.9 - 5.3 cm LV Systolic Diameter PLAX 2.6 cm 2.1 - 4.0 cm LV Fractional Shortening PLAX 44.7 % 25 - 46 % LV Ejection Fraction 2D Teich 76.0 % IVS Diastolic Thickness 1.2 cm LVPW Diastolic Thickness 1.2 cm LV Relative Wall Thickness 0.5 RV Internal Dim ED PLAX 2.0 cm 1.9 - 3.8 cm LVOT Diameter 2.0 cm Aortic Root Diameter 2.6 cm LA Systolic Diameter LX 3.2 cm 3.0 - 4.0 / 2.7 - 3.8 cm LA Volume 25.0 cm 18 - 58 / 22 - 52 cm Ascending Aorta Diameter 2.7 cm DOPPLER AV Peak Velocity 177.0 cm/s AV Peak Gradient 12.5 mmHg AV Mean Velocity 120.0 cm/s AV Mean Gradient 7.0 mmHg AV Velocity Time Integral 42.0 cm LVOT Peak Velocity 81.9 cm/s LVOT Peak Gradient 2.7 mmHg LVOT Mean Velocity 58.6 cm/s LVOT Mean Gradient 2.0 mmHg LVOT Velocity Time Integral 21.0 cm LVOT Stroke Volume 66.0 cm AV Area Cont Eq vti 1.6 cm AV Area Cont Eq pk 1.5 cm MV Peak Velocity 175.0 cm/s MV Peak Gradient 12.3 mmHg MV Mean Velocity 101.0 cm/s MV Mean Gradient 5.0 mmHg Mitral E Point Velocity 115.0 cm/s Mitral A Point Velocity 144.0 cm/s Mitral E to A Ratio 0.8 MV PHT Velocity 179.0 cm/s MV Deceleration [place] 813.0 cm/s MV Pressure Half Time 66.1 ms MV Area PHT 3.3 cm MV Deceleration Time 320.0 ms TR Peak Velocity 300.0 cm/s TR Peak Gradient 36.0 mmHg Right Atrial Pressure 5.0 mmHg Pulmonary Artery Systolic Pressu 41.0 mmHg Right Ventricular Systolic Press 41.0 mmHg PV Peak Velocity 90.9 cm/s PV Peak Gradient 3.3 mmHg PV Mean Velocity 60.7 cm/s PV Mean Gradient 2.0 mmHg PV Velocity Time Integral 19.8 cm LV E' Lateral Velocity 7.4 cm/s Mitral E to LV E' Lateral Ratio 15.5 LV E' Septal Velocity 8.6 cm/s Mitral E to LV E' Septal Ratio 13.4
[2017-06-03 08:15] LABS: ABSOLUTE BASOPHIL COUNT 0.1 /CUMM (0.0-0.2); ABSOLUTE EOSINOPHIL COUNT 0.6 /CUMM (0.0-0.7); ABSOLUTE GRANULOCYTE CT 4.1 /CUMM (1.4-6.5); ABSOLUTE LYMPH COUNT 1.5 /CUMM (1.2-3.4); ABSOLUTE MONOCYTE COUNT 0.9 /CUMM (0.10-0.60); BASOPHIL % 0.7 % (0.0-2.0); EOSINOPHIL % 8.6 % (0-5); GRANULOCYTE % 57.4 % (42.2-75.2); HEMATOCRIT 27.4 % (37-47); MEAN CORPUSCULAR HGB 31.1 PG (27.0-31.0); MEAN CORPUSCULAR HGB CONC 34.1 G/DL (33.0-37.0); MEAN CORPUSCULAR VOLUME 91.1 FL (81.0-99.0); MEAN PLATELET VOLUME 8.5 FL (7.4-10.4); PLATELET COUNT 249 /CUMM (130-400); RBC DISTRIBUTION WIDTH 14.1 % (11.5-14.5); WHITE BLOOD CELL COUNT 7.1 /CUMM (4.8-10.8)
--- NOTE | 2017-06-03 09:23 | PN- Housestaff ---
Gal STERLING,Shandra 06/03/17 0922: Subjective Follow-up For: Dyspnea Tele-Events Since Last Visit: Normal sinus rhythm heart rate 65-85 no overnight events Subjective: Patient seen and examined at bedside. Patient has no complaints at this time except for some constipation. Review of Systems Constitutional: Reports: no symptoms. EENTM: Reports: no symptoms. Cardiovascular: Reports: no symptoms. Respiratory: Reports: no symptoms. Gastrointestinal: Reports: constipation. Genitourinary: Reports: no symptoms. Musculoskeletal: Reports: no symptoms. Skin: Reports: no symptoms. Neurological/Psychological: Reports: no symptoms. Hematologic/Endocrine: Reports: no symptoms. Immunologic/Allergic: Reports: no symptoms. Objective Last 24 Hrs of Vital Signs/I&O Vital Signs Date Time Temp Pulse Resp B/P B/P Pulse O2 O2 Flow FiO2 Mean Ox Delivery Rate 06/03 2125 98.4 85 20 130/70 06/03 1656 96 Nasal 2.0L Cannula 06/03 1600 Nasal 2.0L Cannula 06/03 1531 98.0 80 20 112/56 96 06/03 0941 110/60 06/03 0941 110/60 06/03 0819 94 Nasal 2.0L Cannula 06/03 0738 Nasal 2.0L Cannula 06/03 0600 98.4 69 20 106/58 96 06/03 0000 96 Nasal 2.0L Cannula 06/02 2345 98.5 86 18 98 Nasal Cannula Intake & Output 06/03 1600 06/03 0800 06/03 0000 Intake Total 650 200 800 Output Total Balance 650 200 800 Intake, IV 250 Intake, Oral 400 200 800 Patient 168 lb Weight Physical Exam General Appearance: Alert, Oriented X3, Cooperative, No Acute Distress Skin: No Rashes, No Breakdown Skin Temp/Moisture Exam: Warm/Dry Cardiovascular: Regular Rate, Normal S1, Normal S2, No Murmurs Lungs: bibasilar inspiratory crackles Abdomen: Normal Bowel Sounds, Soft Extremities: No Clubbing, No Cyanosis, No Edema Current Medications: Current Medications Sig/Rachelle Start time Last Medication Dose Route Stop Time Status Admin Acetaminophen 650 MG Q6P PRN 06/01 1345 AC 06/03 PO 2125 Acetaminophen 1,000 MG Q6P PRN 06/01 1345 AC IV Albuterol Sulfate 3 ML EVERY 4 HRS/AWAKE 06/01 2000 AC 06/03 INH 2041 Alendronate Sodium 70 MG QWED 06/05 0700 AC PO Amlodipine Besylate 5 MG DAILY 06/01 1515 AC 06/03 PO 0941 Artificial Tears 1 GTT BID PRN 06/01 1530 AC OU Aspirin 81 MG DAILY 06/01 1501 AC 06/03 PO 0940 Atorvastatin Calcium 40 MG 1700 06/02 1700 AC 06/03 PO 1804 Azithromycin 500 MG DAILY@1400 06/02 1400 AC 06/03 Sodium Chloride 250 ML IV 1224 Bisacodyl 5 MG ONE ONE 06/03 1300 DC 06/03 PO 06/03 1301 1357 Bisacodyl 10 MG ONCE ONE 06/03 1300 DC 06/03 DC 06/03 1301 1357 Calcium 600 MG BID 06/02 1000 AC 06/03 PO 2126 Ceftriaxone Sodium 1,000 MG DAILY@1330 06/02 1330 AC 06/03 IV 1223 Cholecalciferol 2,000 IU DAILY 06/01 1517 AC 06/03 PO 0940 Clopidogrel Bisulfate 75 MG DAILY 06/01 1517 AC 06/03 PO 0941 Cyanocobalamin 1,000 MCG DAILY 06/01 1517 AC 06/03 PO 0941 Docusate Sodium 100 MG DAILY 06/03 1255 AC 06/03 PO 1357 Enoxaparin Sodium 40 MG DAILY 06/02 1000 AC 06/03 SC 0940 Famotidine 20 MG 1/2H B/BREAKF/DINNER 06/02 0700 AC 06/03 PO 1804 Guaifenesin 15 ML Q6H PRN 06/01 1530 AC PO Hydralazine HCl 75 MG BID 06/01 2200 AC 06/03 PO 2126 Insulin Aspart 0 TIDAC 06/01 1700 AC 06/02 SC 1730 Insulin Detemir 8 UNITS QPM 06/01 2200 AC 06/03 SC 2125 Insulin Detemir 12 UNITS QAM 06/01 1519 AC 06/03 SC 0939 Ipratropium [place] 2.5 ML EVERY 4 HRS/AWAKE 06/01 2000 AC 06/03 INH 204 Melatonin 6 MG QPM 06/01 2200 AC 06/03 PO 2126 Multivitamins 1 TAB DAILY 06/02 1000 AC 06/03 PO 0941 Pregabalin 200 MG AT BEDTIME 06/010 AC 06/03 PO 2127 Rivastigmine Tartrate 6 MG BID 06/01 2200 AC 06/03 PO 2125 Senna/Docusate Sodium 1 TAB AT BEDTIME 06/02 2200 AC 06/03 PO 2125 Trazodone HCl 25 MG DAILY PRN 06/02 1000 AC 06/03 PO 2124 Trazodone HCl 100 MG QPM 06/01 2200 AC 06/03 PO 2125 Last 24 Hrs of Lab/Justo Results Last 24 Hrs of Labs/Mics: Laboratory Tests 06/03/17 0724: Anion Gap 10, Estimated GFR 53 L, BUN/Creatinine Ratio 29.0 H, CBC w Diff NO MAN DIFF REQ, RBC 3.00 L, MCV 91.1, MCH 31.1 H, RDW 14.1, MPV 8.5, Gran % 57.4 , Lymphocytes % 21.0, Monocytes % 12.3 H, Eosinophils % 8.6 H, Basophils % 0.7 , Absolute Granulocytes 4.1, Absolute Lymphocytes 1.5, Absolute Monocytes 0.9 H , Absolute Eosinophils 0.6, Absolute Basophils 0.1, PUBS MCHC 34.1, Retic Count 1.97 Assessment/Plan Assessment: 87 yo F with pmh of CVA 6 years ago with no residual neurologic deficit, worsening dementia but functional in her daily activities, hypertension, hyperlipidemia, type 1 diabetes, PVD status post left popliteal stent and left first toe amputation, urinary incontinence, osteoarthritis, recurrent UTI until 6 months ago, resident of [facility], was sent in for worsening shortness of breath and mildly productive cough while on oral antibiotics and oral prednisone. Assessment and Plan: Community Acquired Pneumonia: * Continue antibiotic treatement with IV Ceftriaxone and Azithromycin * TRC/nebs as needed * Continue oxygen supplementation to maintain saturations >92%. Will wean off as tolerated. * IV lasix has been discontinued due to low suspicion of CHF, echo showed no evidence of CHF * CBC normalized Type II [place]: * Elevated troponins on admission were likely in the setting of Type II [place] * Would continue her on cardiac medications for now. * If blood pressure remains above goal can increase the hydralazine to 3 times a day dosing * Keep lasix and HCTZ on hold * Echocardiogram no evidence of CHF, EF at 75% with no obvious regional wall motion abnormalities. Constipation * By mouth and DC bisacodyl * MiraLAX * Colace Anemia: * Patient has had a 2 point drop in Hb. Could be dilutional * currently at 9.3 * will monitor with serial CBC * Normal reticulocyte count Diabetic diet, insulin as per home medication, Accu-Cheks 3 times a day/before meals and at bedtime. DVT prophylaxis with Lovenox. Code status: DNR/DNI. Problem List: 1. Acute hypoxemic respiratory failure Pain Ratin Pain Location: None Pain Goal: Remain pain free Pain Plan: Pathway Tomorrow's Labs & Rationales: CBC and BEP Deepa Knight MD 06/03/17 1123: Attending MD Review Statement Attending Statement Attending MD Statement: examined this patient, discuss w/resident/PA/TRANSMITTER SUPERVISOR, agreed w/resident/PA/TRANSMITTER SUPERVISOR, reviewed EMR data (avail), reviewed images Attending Assessment/Plan: We are treating patient with IV ceftriaxone and azithromycin for community- acquired pneumonia given the cough, shortness of breath and having failed by [facility] Doxy in the [facility]. In addition she came in with a mildly elevated white count which has since normalized. She has underlying diabetes, peripheral vascular disease and previous CVA. Her echo results were noted and she is not in heart failure. I have stopped the hydrochlorothiazide because of the hyponatremia and she doesn't need any Lasix. And will follow-up.
[2017-06-03 15:31] VITALS: BP 112/56
[2017-06-03 22:16] VITALS: BP 130/70
[2017-06-04 06:57] VITALS: BP 120/50
--- NOTE | 2017-06-04 07:41 | PN- Housestaff ---
See Addendum Subjective Follow-up For: CAP Tele-Events Since Last Visit: No overnight acute events Subjective: I seen and examined the patient. The patient was on lying comfortably in the bed. Daughter by the bedside. Offers no complaints. As per daughter patient is experiencing some congestion in the chest. Denies fever and chills. Reports some cough with phlegm production. Daughter reports the patient has not had a bowel movement since past 2 days. Review of Systems Constitutional: Reports: see HPI. Objective Last 24 Hrs of Vital Signs/I&O Vital Signs Date Time Temp Pulse Resp B/P B/P Pulse O2 O2 Flow FiO2 Mean Ox Delivery Rate 06/04 08 94 Nasal 2.0L Cannula 06/04 0657 97.7 64 20 120/50 98 Nasal 2.0L Cannula 06/04 0000 Nasal 2.0L Cannula 06/03 2216 98.2 85 20 130/70 94 06/03 2126 98.4 85 20 130/70 06/03 1656 96 Nasal 2.0L Cannula 06/03 1600 Nasal 2.0L Cannula 06/03 1531 98.0 80 20 112/56 96 06/03 0941 110/60 06/03 0941 110/60 Intake & Output 06/04 1600 06/04 0800 06/04 0000 Intake Total 120 480 Output Total Balance 120 480 Intake, Oral 120 480 Physical Exam General Appearance: Alert, Oriented X3, Cooperative Lungs: decreased wheezing Abdomen: Normal Bowel Sounds, distended Neurological: Normal Speech Current Medications: Current Medications Sig/Rachelle Start time Last Medication Dose Route Stop Time Status Admin Acetaminophen 650 MG .STK-MED ONE 06/03 2120 DC PO 06/03 2121 Acetaminophen 650 MG Q6P PRN 06/01 1345 AC 06/03 PO 2125 Acetaminophen 1,000 MG Q6P PRN 06/01 1345 AC IV Albuterol Sulfate 3 ML EVERY 4 HRS/AWAKE 06/01 2000 AC 06/04 INH 0832 Alendronate Sodium 70 MG QWED 06/05 0700 AC PO Amlodipine Besylate 5 MG DAILY 06/01 1515 AC 06/03 PO 0941 Artificial Tears 1 GTT BID PRN 06/01 1530 AC OU Aspirin 81 MG DAILY 06/01 1501 AC 06/03 PO 0940 Atorvastatin Calcium 40 MG 1700 06/02 1700 AC 06/03 PO 1804 Azithromycin 500 MG DAILY@1400 12/31 1400 AC 06/03 Sodium Chloride 250 ML IV 1224 Bisacodyl 5 MG ONE ONE 06/03 1300 DC 06/03 PO 06/03 1301 1357 Bisacodyl 10 MG ONCE ONE 06/03 1300 DC 06/03 NH 06/03 1301 1357 Calcium 600 MG BID 06/02 1000 AC 06/03 PO 2126 Ceftriaxone Sodium 1,000 MG DAILY@1330 06/02 1330 AC 06/03 IV 1223 Cholecalciferol 2,000 IU DAILY 06/01 1517 AC 06/03 PO 0940 Clopidogrel Bisulfate 75 MG DAILY 06/01 1517 AC 06/03 PO 0941 Cyanocobalamin 1,000 MCG DAILY 06/01 1517 AC 06/03 PO 0941 Docusate Sodium 100 MG DAILY 06/03 1255 AC 06/03 PO 1357 Enoxaparin Sodium 40 MG DAILY 06/02 1000 AC 06/03 SC 0940 Famotidine 20 MG 1/2H B/BREAKF/DINNER 06/02 0700 AC 06/04 PO 0635 Fluticasone 2 SPRAY ONCE ONE 06/03 2300 DC 06/03 Propionate TODD 06/03 2301 2350 Guaifenesin 15 ML Q6H PRN 06/01 1530 AC PO Hydralazine HCl 75 MG BID 06/01 2200 AC 06/03 PO 2126 Insulin Aspart 0 TIDAC 06/01 1700 AC 06/02 SC 1730 Insulin Detemir 8 UNITS QPM 06/01 2200 AC 06/03 SC 2125 Insulin Detemir 12 UNITS QAM 06/01 1519 AC 06/03 SC 0939 Ipratropium [place] 2.5 ML EVERY 4 HRS/AWAKE 06/01 2000 AC 06/04 INH 0832 Melatonin 6 MG QPM 06/01 2200 AC 06/03 PO 2126 Multivitamins 1 TAB DAILY 06/02 1000 AC 06/03 PO 0941 Pregabalin 200 MG AT BEDTIME 06/01 2200 AC 06/03 PO 2127 Rivastigmine Tartrate 6 MG BID 06/01 2200 AC 06/03 PO 2126 Senna/Docusate Sodium 1 TAB AT BEDTIME 06/02 220 AC 06/03 PO 2126 Trazodone HCl 50 MG .STK-MED ONE 06/03 2123 DC PO 06/03 2124 Trazodone HCl 25 MG DAILY PRN 06/02 1000 AC 06/03 PO 2124 Trazodone HCl 100 MG QPM 06/01 2200 AC 06/03 PO 2125 Last 24 Hrs of Lab/Justo Results Last 24 Hrs of Labs/Mics: Laboratory Tests 06/04/17 0610: Anion Gap 10, Estimated GFR > 60, BUN/Creatinine Ratio 30.0 H, CBC w Diff NO MAN DIFF REQ, RBC 2.97 L, MCV 90.5, MCH 30.6, RDW 14.4, MPV 8.4, Gran % 60.4, Lymphocytes % 19.7 L, Monocytes % 11.4 H, Eosinophils % 8.1 H, Basophils % 0.4, Absolute Granulocytes 3.9, Absolute Lymphocytes 1.3, Absolute Monocytes 0.7 H, Absolute Eosinophils 0.5, Absolute Basophils 0, PUBS MCHC 33.8 Assessment/Plan Assessment: 87 yo F with pmh of CVA 6 years ago with no residual neurologic deficit, worsening dementia but functional in her daily activities, hypertension, hyperlipidemia, type 1 diabetes, PVD status post left popliteal stent and left first toe amputation, urinary incontinence, osteoarthritis, recurrent UTI until 6 months ago, resident of [facility], was sent in for worsening shortness of breath and mildly productive cough while on oral antibiotics and oral prednisone. Assessment and Plan: #Community Acquired Pneumonia: Patient presented with low-grade fever and hypoxia 59%, with failure of outpt therapy, CXR negative. On CURB65 patient scored 3 points with BUN > 19, respiratory rate> 30 on presentation, age > 65, making patient severe risk with 14% 30 day mortality. * Continue IV Ceftriaxone and Azithromycin for now * TRC/nebs as needed * Continue oxygen supplementation to maintain saturations >92%. Will wean off as tolerated. * Monitor fever and the prevesical patient remains afebrile white count is within normal limits. * f/u CT chest for better imaging and further evaluation. #Type II [place]: Elevated troponins on admission were likely in the setting of Type II [place], trended down * Would continue her on cardiac medications for now. * If blood pressure remains above goal can increase the hydralazine to 3 times a day dosing * Keep lasix and HCTZ on hold, BP remains stable * Echocardiogram no evidence of CHF, EF at 75% with no obvious regional wall motion abnormalities. #Constipation: last BM 2 days ago * By mouth and [place] bisacodyl,MiraLAX,Colace #Anemia: Patient has had a 2 point drop in Hb. likely dilutional, Normal reticulocyte count * Stable #Diabetic diet, insulin as per home medication, Accu-Cheks 3 times a day/before meals and at bedtime. #DVT prophylaxis with Lovenox. #Code status: DNR/DNI. Problem List: 1. Community acquired pneumonia Pain Ratin Pain Location: n/a Pain Goal: Pain 4 or less Pain Plan: prn Tomorrow's Labs & Rationales: cbc bep
[2017-06-04 08:10] LABS: ABSOLUTE BASOPHIL COUNT 0 /CUMM (0.0-0.2); ABSOLUTE EOSINOPHIL COUNT 0.5 /CUMM (0.0-0.7); ABSOLUTE GRANULOCYTE CT 3.9 /CUMM (1.4-6.5); ABSOLUTE LYMPH COUNT 1.3 /CUMM (1.2-3.4); ABSOLUTE MONOCYTE COUNT 0.7 /CUMM (0.10-0.60); BASOPHIL % 0.4 % (0.0-2.0); EOSINOPHIL % 8.1 % (0-5); GRANULOCYTE % 60.4 % (42.2-75.2); HEMATOCRIT 26.9 % (37-47); MEAN CORPUSCULAR HGB 30.6 PG (27.0-31.0); MEAN CORPUSCULAR HGB CONC 33.8 G/DL (33.0-37.0); MEAN CORPUSCULAR VOLUME 90.5 FL (81.0-99.0); MEAN PLATELET VOLUME 8.4 FL (7.4-10.4); PLATELET COUNT 260 /CUMM (130-400); RBC DISTRIBUTION WIDTH 14.4 % (11.5-14.5); RED BLOOD CELL CT 2.97 /CUMM (4.20-5.40); WHITE BLOOD CELL COUNT 6.4 /CUMM (4.8-10.8)
--- NOTE | 2017-06-04 11:26 | Discharge Summary ---
Visit Information Visit Dates Admission Date: 06/01/17 Discharge Date: 06/06/2017 Hospital Course Course Attending Physician: Mark Shah MD Primary Care Physician: Mayda Amor MD Hospital Course: Patient is a 87-year-old female BIBA from [facility] with significant past medical history of dementia, hypertension, hyperlipidemia, diabetes, peripheral vascular disease s/p left popliteal stent, history of amputation, presented with chief complaints of acute onset of shortness of breath. ED course - vital signs at the time of admission temperature 98.1, pulse 89, respiratory rate 30, blood pressure 216/88, SPO2 89% on room air. Blood workup showed WBC 12.6, hemoglobin 11.0, hematocrit 33.0, platelet count 245, granulocyte 80.2, glucose 300, BUN 26, creatinine 0.8, GFR more than 60, serum sodium 132, potassium 4.0, chloride 90, Co2 29, anion gap 13, calcium 9.2, total protein 7.9, alkaline phosphatase 140, SGOT 21, SGPT 26, troponin 0.11.Chest x- ray did not show any acute cardiopulmonary disease. Patient was admitted into telemetry floor for further evaluation and management. Acute hypoxic respiratory failure secondary to bilateral basilar pneumonia - We admitted the patient to telemetry floor and started on ceftriaxone and azithromycin. Flu test and an and urine for Legionella and strep pneumoniae were negative. Serial blood workup were normal. She remained afebrile throughout the hospital course. We did HRCT which showed Bilateral posterior lower lobe atelectasis and consolidation containing air bronchograms correllated clinicaly as pneumonia. We gave total 10 days of antibiotics, and discharged her on Augmentin 500mg BID. Type II IA - Patient was having minimal elevation of ProBNP(2770) and troponins(0.11,0.16, 0.14)of unclear etiology.We obtained the consult from the personal injury law specialist, they were not convinced for CHF, as patient didnt had increased JVP and Chest x-ray did not show any evidence of heart failure. They advised to treat conservatively , but as he has hx of PVD, we started her on Metoprolol 12.5mg BID and NTG patch and continue his aspirin, atorvastatin. Echocardiogram showed LVEF of 75%, normal systolic function, Mild LVH, no regional wall motion abnormality. We discharged her on same medication and advised for outpatient evaluation. We advised to watch for bradycardia. Type 2 DM - Patient was having short goods drier hypoglycemia in the range of 56-58. We decreased the dose of nighttime Levemir from 8 to 6 units. We continued same morning dose (12U). Allergies: Coded Allergies: codeine (Severe, HALLUCINATIONS, NAUSEA 06/06/16) oxycodone (From Percocet) (Severe, HALLUCINATIONS, NAUSEA 06/06/16) Sulfa (Sulfonamide Antibiotics) (N/V SEVERE 06/06/16) ciprofloxacin (From CIPRO) (UNKNOWN - PER W10 06/01/17) donepezil (From ARICEPT) (UNKNOWN - PER W-10 06/01/17) Disposition Summary Disposition Principal Diagnosis: Community-acquired pneumonia Type II myocardial infarction. 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 Please follow-up with your manager title for further evaluation of type 2 diabetes and adjustment of insulin doses Please take the medication as advised Medications at Discharge Discharge Medications: Stop taking the following medications: Cephalexin (Cephalexin) 250 MG CAPSULE ORAL Every Morning Qty = 30 Prednisone (Prednisone) 10 MG TABLET ORAL As Directed Continue taking these medications: Pregabalin (Lyrica) 200 MG CAPSULE 1 Capsule ORAL TAKE AT BEDTIME Comments: Last Taken: 06/05/17 Time: 3:30 PM Clopidogrel Bisulfate (Clopidogrel) 75 MG TABLET 1 Tablet ORAL DAILY Comments: Last Taken: 06/06/16 Time: 10:45 AM Docusate Sodium (Colace) 100 MG CAPSULE 1 Capsule ORAL Q12H as needed for STOOL SOFTENER Comments: Last Taken: 06/06/17 Time: 10:45 AM Pravastatin Sodium (Pravastatin Sodium) 40 MG TABLET 1 Tablet ORAL DAILY Qty = 30 Comments: Last Taken: 06/05/17 Time: 3:30 PM Alendronate Sodium (Alendronate Sodium) 70 MG TABLET 1 Tablet ORAL EVERY SATURDAY Instructions: in the morning, at least 30 minutes before the first food, beverage, or medication of the day Comments: Last Taken: 06/05/17 Time: 10:00 AM Rivastigmine Tartrate (Rivastigmine) 6 MG CAPSULE 1 Capsule ORAL TWICE DAILY Qty = 60 Comments: Last Taken: 06/06/17 Time: 10:45 AM Hydralazine HCl (Hydralazine HCl) 25 MG TABLET 75 Milligram ORAL TWICE DAILY Qty = 60 Comments: Last Taken: 06/06/17 Time: 10:45 AM Cholecalciferol (Vitamin D3) (Vitamin D) 2,000 UNIT TABLET 1 Tablet ORAL DAILY Comments: Last Taken: 06/06/17 Time: 10:45 AM Cyanocobalamin (Vitamin B-12) 1,000 MCG TABLET 1 Tablet ORAL DAILY Comments: Last Taken: 06/06/17 Time: 10:45 AM Trazodone HCl (Trazodone HCl) 100 MG TABLET 1 Tablet ORAL Every night Comments: Last Taken: 06/06/17 Time: 8:30 PM Naloxone HCl (Narcan) 4 MG/ACTUATION SPRAY 4 Milligram In the nose As Directed as needed for OPIOID INDUCED RESP. DEPRESSIO Comments: NOT GIVEN IN HOSPITAL Amlodipine Besylate (Amlodipine Besylate) 5 MG TABLET 1 Tablet ORAL DAILY Comments: Last Taken: 06/06/17 Time: 10:45 AM Calcium (Elemental-Fr Calcarb) (Calcium) 600 MG CALCIUM (1,500 MG) TABLET 1 Tablet ORAL TWICE DAILY Comments: Last Taken: 06/06/17 Time: 10:45 AM Acetaminophen (Pain Reliever) 325 MG TABLET 2 Tablet ORAL Q6H as needed for PAIN/TEMP>101 Comments: NOT GIVEN IN HOSPITAL Acetaminophen (Acetaminophen) 650 MG SUPP.RECT 1 SUPPOSITORY RECTALLY Q6H as needed for PAIN/TEMP>101 Comments: NOT GIVEN IN HOSPITAL Insulin Lispro (Humalog) 100 UNIT/ML VIAL Units Inject into fatty tissue 3 TIMES DAILY BEFORE MEALS Comments: Last Taken: 06/06/17 Time: 12:30 PM Polyethylene Glycol 3350 (Polyethylene Glycol 3350) 17 GRAM POWD.PACK 1 Packet ORAL DAILY as needed for GI Comments: NOT GIVEN IN HOSPITAL Bisacodyl (Biscolax) 10 MG SUPP.RECT 1 Suppository RECTALLY DAILY as needed for CONSTIPATION Comments: Last Taken: 06/06/17 Time: 11:00 AM Magnesium Hydroxide (Milk Of Magnesia) 400 MG/5 ML ORAL.SUSP 30 Milliliters ORAL Every 3 days as needed for CONSTIPATION Comments: NOT GIVEN IN HOSPITAL Na Phos,M-B/Na Phos,Di-Ba (Fleet Enema) 19 GRAM-7 GRAM/118 ML ENEMA 1 Enema RECTAL DAILY as needed for CONSTIPATION Comments: NOT GIVEN IN HOSPITAL Guaifenesin (Guaifenesin) 100 MG/5 ML LIQUID 15 Milliliters ORAL Q6H as needed for COUGH Comments: NOT GIVEN IN HOSPITAL Ipratropium/Albuterol Sulfate (Iprat-Albut 0.5-3(2.5) MG/3 Ml) 0.5 MG-3 MG (2.5 MG BASE)/3 ML AMPUL.NEB 1 VIAL Inhale through mouth Q4H as needed for COUGH/SOB Comments: Last Taken: 06/06/17 Time: 7:30 AM Albuterol Sulfate (Albuterol Sulfate) 2.5 MG/3 ML (0.083 %) VIAL.NEB 1 Vial Inhale Solution Q6H as needed for SOB/WHEEZE Comments: NOT GIVEN IN HOSPITAL Dextran 70/Hypromellose (Artificial Tears) 1 EACH DROPERETTE 2 DROP Both Eyes TWICE DAILY as needed for EYE LUBRICANT Comments: NOT GIVEN IN HOSPITAL Ranitidine HCl (Ranitidine HCl) 150 MG CAPSULE 1 Capsule ORAL TWICE DAILY Comments: Last Taken: 06/06/17 Time: 6:30 AM Hydrochlorothiazide (Hydrochlorothiazide) 12.5 MG CAPSULE 1 Capsule ORAL DAILY Comments: NOT GIVEN IN HOSPITAL Melatonin (Melatin) 3 MG TABLET 6 Milligram ORAL Every night Comments: Last Taken: 06/06/17 Time: 8:30 PM Insulin Detemir (Levemir) 100 UNIT/ML VIAL 12 Units Inject into fatty tissue Every Morning Comments: Last Taken: 06/06/17 Time: 10;45 AM Insulin Detemir (Levemir) 100 UNIT/ML VIAL 6 Units Inject into fatty tissue Every night Qty = 30 Comments: Last Taken: 06/05/17 Time: 9:00 PM Sennosides (Senokot) 8.6 MG TABLET 2 Tablet ORAL DAILY Comments: Last Taken: 06/06/17 Time: 10:45 AM Trazodone HCl (Trazodone HCl) 50 MG TABLET 25 Milligram ORAL NEEDED as needed for AGITATION Comments: NOT GIVEN IN HOSPITAL Multivitamin (Multivitamins) 1 EACH CAPSULE 1 Tablet ORAL DAILY Comments: Last Taken: 06/06/17 Time: 10;45 AM Start taking the following new medications: Nitroglycerin (Nitroglycerin Patch) 0.4 MG/HOUR PATCH.TD24 0.4 Milligram On the skin DAILY Qty = 30 No Refills Comments: Last Taken: 06/04/17 Time: 5:30 PM Metoprolol Tartrate (Metoprolol Tartrate) 25 MG TABLET 0.5 Tablet ORAL TWICE DAILY Qty = 60 No Refills Comments: Last Taken: 06/06/17 Time: 10:45 AM Augmentin (Augmentin 500-125 Tablet) 500 MG-125 MG TABLET 1 Tablet ORAL TWICE DAILY Qty = 10 No Refills Comments: Last Taken: 06/06/17 Time: 10:45 AM Copies To: Zuleyma STERLING,Mayda Tuttle MD Review Statement Documenting Attending: Mark Shah MD Other Findings: DischargeD in stable medical condition.
--- NOTE | 2017-06-04 13:51 | Patient Discharge Instructions ---
Discharge Instructions General Discharge Information You were seen/treated for: bilateral basilar pneumonia Watch for these problems: fever, shortness of breath, chest pain Special Instructions: Please follow-up with your PCP within a week of discharge Please follow-up with track oiler within a week of discharge for further evaluation of demand ischemia Please follow-up with your concrete bucket loader for further evaluation of type 2 diabetes and adjustment of insulin doses Please take the medication as advised Diet Continue normal diet: Yes Activity Activity Self Limited: Yes Acute Coronary Syndrome Inclusion Criteria At DC or during hospital stay patient has or had the following: ACS DIAGNOSIS Yes Discharge Core Measures Meds if any: Prescribed or Continued at Discharge ASHLEY/ARB if EF <40% No Aspirin Yes Statin Yes Meds if any: NOT Prescribed or Continued at Discharge Congestive Heart Failure Inclusion Criteria At DC or during hospital stay patient has or had the following: CHF DIAGNOSIS No Discharge Core Measures Meds if any: Prescribed or Continued at Discharge Meds if any: NOT Prescribed or Continued at Discharge Cerebrovascular accident Inclusion Criteria At DC or during hospital stay patient has or had the following: CVA/TIA Diagnosis No Discharge Core Measures Meds if any: Prescribed or Continued at Discharge Meds if any: NOT Prescribed or Continued at Discharge Venous thromboembolism Inclusion Criteria VTE Diagnosis No VTE Type NONE VTE Confirmed by (Test) NONE Discharge Core Measures - Per Current guidelines, there needs to be overlap - treatment for the first 5 days of Warfarin therapy. - If discharged on Warfarin prior to 5 days of - overlap therapy, the patient will need to be - assessed for post discharge needs including - *Post discharge parental anticoagulation - *Warfarin and/or parental anticoagulation education - *Follow up date to check INR post discharge At least 5 days overlap therapy as Inpatient No Meds if any: Prescribed or Continued at Discharge Note: Overlap Therapy is Warfarin and Anticoagulant Meds if any: NOT Prescribed or Continued at Discharge
[2017-06-04 14:29] VITALS: BP 120/62
--- NOTE | 2017-06-04 14:54 | PN- Cardiology ---
Subjective Subjective: * Patient is breathing much better than when she came is but is still not back to her baseline. No chest discofort. * troponin is trending down. * H/H is trending down Objective Vital Signs and I&Os Vital Signs Date Time Temp Pulse Resp B/P B/P Pulse O2 O2 Flow FiO2 Mean Ox Delivery Rate 06/04 0958 72 138/58 06/04 0958 72 138/58 06/04 0800 94 Nasal 2.0L Cannula 06/04 0657 97.7 64 20 120/50 98 Nasal 2.0L Cannula 06/04 0000 Nasal 2.0L Cannula 06/03 2216 98.2 85 20 130/70 94 06/03 2126 98.4 85 20 130/70 06/03 1656 96 Nasal 2.0L Cannula 06/03 1600 Nasal 2.0L Cannula 06/03 1531 98.0 80 20 112/56 96 Intake & Output 06/04 1600 06/04 0800 06/04 0000 06/03 1600 06/03 0800 06/03 0000 Intake Total 570 120 480 650 200 800 Output Total Balance 570 120 480 650 200 800 Intake, IV 270 250 Intake, Oral 300 120 480 400 200 800 Patient 161 lb 168 lb Weight Weight Bed scale Measurement Method Physical Exam: General: WD/ WN female in NAD; alert and oriented x 3 HEENT: NC/AT, PERRL, EOMI, clear oropharynx Neck: no JVD, no carotid bruit Heart: RRR w/o murmur Lungs: wheezing is noted bilaterally with decreased breath sounds on the right Abdomen: soft, NT, +ve bowel sounds Extremities: no edema Assessment/Plan Assessment/Plan * This patient had respiratory distress in the setting of a severe bronchitic infection. She does carry a history of asthma. She is improved but is not back to her baseline. I do not see evidence of decompensated CHF but she did have a rise in troponin likely related to a combination of severe anemia and decreased oxygenation consistent with a supply demand mismatch. * This patient is a vasculopath and almost certainly has significant coronary artery disease. She will be treated medically until her pulmonary condition improves. Begin a NTG patch at 0.4mg/hr for 12 hours daily. Begin a small dose of beta zain at Metoprolol 12.5mg BID. This patient has previously had issues with bradycardia and will need to be monitored on telemetry while she is beginning Metoprolol. Continue aspirin, Plavix and her statin. * This patient has anemia with a decreasing H/H. This may be dilutional since her WBC count and platelets are also coming down but an anemia workup is recommended including checking stool for occult blood and checking a reticulocyte count, B12, folate and iron studies. Continue telemetry? Yes
[2017-06-04] MEDS ORDERED: NITROGLYCERIN1 EACH TOP (15:10)
[2017-06-04] MEDS ORDERED: METOPROLOL TART25 M1 PO (15:10)
--- NOTE | 2017-06-04 16:45 | CT SCAN REPORT ---
EXAMINATION: CT CHEST WITHOUT CONTRAST CLINICAL INFORMATION: 87-year-old female with pneumonia. COMPARISON: Chest radiograph 06/01/2017 TECHNIQUE: Multidetector volumetric CT imaging of the chest was done. Axial MIP volume rendering provided. Sagittal and coronal reformatted images were obtained. DLP: 324.04 mGy-cm FINDINGS: LUNGS: The central airways are patent. Bronchial wall thickening is noted at the lung bases, particularly in the lower lobes. Consolidation containing air bronchograms noted within the bilateral lower lobes no suspicious pulmonary nodule. MEDIASTINUM: Mild cardiomegaly. No pericardial effusion. Extensive coronary artery calcifications are present. No bulky mediastinal or hilar lymphadenopathy. PLEURA: There are trace bilateral pleural effusions. No pneumothorax. AXILLA: No lymphadenopathy. UPPER ABDOMEN: Unremarkable. OSSEOUS STRUCTURES: No acute or suspicious osseous lesions. Degenerative changes are seen throughout the spine. IMPRESSION: Bilateral posterior lower lobe atelectasis and consolidation containing air bronchograms. Findings may represent pneumonia in the proper clinical setting. Trace bilateral pleural effusions.
[2017-06-04 22:07] VITALS: BP 160/72
--- NOTE | 2017-06-05 07:09 | PN- Housestaff ---
See Addendum Subjective Follow-up For: CAP Tele-Events Since Last Visit: No acute overnight events, normal sinus rythum Subjective: pt seen and examined. daughter at Bedside. Reports improvement in breathing symptoms. reports very small bowel movement, distended belly Review of Systems Constitutional: Reports: see HPI. Objective Last 24 Hrs of Vital Signs/I&O Vital Signs Date Time Temp Pulse Resp B/P B/P Pulse O2 O2 Flow FiO2 Mean Ox Delivery Rate 06/05 821 98 Nasal 2.0L Cannula 06/05 08 94 Nasal 2.0L Cannula 06/05 0710 97.6 62 20 140/70 99 Nasal Cannula 06/05 0000 Nasal 2.0L Cannula 06/04 2207 97.9 70 22 160/72 98 06/04 2108 78 160/72 06/04 2107 78 160/72 06/04 1740 84 124/64 06/04 1600 95 Nasal 2.0L Cannula 06/04 1429 98.4 81 20 120/62 95 06/04 0958 72 138/58 06/04 0958 72 138/58 Intake & Output 06/05 1600 06/05 0800 06/05 0000 Intake Total 120 120 Output Total 400 400 Balance -280 -280 Intake, Oral 120 120 Output, Urine 400 400 Physical Exam General Appearance: Alert, Oriented X3, Cooperative Cardiovascular: Normal S1, Normal S2 Lungs: Clear to Auscultation Abdomen: Soft, distended Assessment/Plan Assessment: 87 yo F with pmh of CVA 6 years ago with no residual neurologic deficit, worsening dementia but functional in her daily activities, hypertension, hyperlipidemia, type 1 diabetes, PVD status post left popliteal stent and left first toe amputation, urinary incontinence, osteoarthritis, recurrent UTI until 6 months ago, resident of [facility], was sent in for worsening shortness of breath and mildly productive cough while on oral antibiotics and oral prednisone. Assessment and Plan: #Community Acquired Pneumonia: Patient presented with low-grade fever and hypoxia 59%, with failure of outpt therapy, CXR negative. CT scan Bilateral posterior lower lobe atelectasis and consolidation containing air bronchograms. On CURB65 patient scored 3 points with BUN > 19, respiratory rate> 30 on presentation, age > 65, making patient severe risk with 14% 30 day mortality. * Switched to oral Augmentin day 5 today of antibiotic therapy * TRC/nebs as needed, wean off oxygen * Monitor fever and the WBC curve, patient remains afebrile white count WNL * Swallow eval pending #Type II MO: Elevated troponins on admission were likely in the setting of Type II MO, trended down, patient was evaluated by cardiology * Continue aspirin and Plavix and statin * Patient has been started on nitroglycerin patch and small dose beta zain 12.5 twice a day yesterday, as per cardiology note patient has history of bradycardia and will need monitoring on telemetry, in context of starting metoprolol * Blood pressure remained stable his Lasix and hydrochlorothiazide were replaced pressure remained supple can go up on hydralazine to TID * Echocardiogram no evidence of CHF, EF at 75% with no obvious regional wall motion abnormalities. #Constipation: distended belly had a very small BM yesterday * By mouth and VT bisacodyl,MiraLAX,Colace, senna #Anemia: Patient has had a 2 point drop in Hb. likely dilutional, Normal reticulocyte count * Stable #Diabetic diet, insulin as per home medication, Accu-Cheks 3 times a day/before meals and at bedtime. #DVT prophylaxis with Lovenox. #Code status: DNR/DNI. Problem List: 1. Community acquired pneumonia Pain Ratin Pain Location: n/a Pain Goal: Pain 4 or less Pain Plan: prn Tomorrow's Labs & Rationales: cbc bep
[2017-06-05 07:10] VITALS: BP 140/70
[2017-06-05 08:03] LABS: ABSOLUTE BASOPHIL COUNT 0 /CUMM (0.0-0.2); ABSOLUTE EOSINOPHIL COUNT 0.5 /CUMM (0.0-0.7); ABSOLUTE GRANULOCYTE CT 3.8 /CUMM (1.4-6.5); ABSOLUTE LYMPH COUNT 1.3 /CUMM (1.2-3.4); ABSOLUTE MONOCYTE COUNT 0.7 /CUMM (0.10-0.60); BASOPHIL % 0.5 % (0.0-2.0); EOSINOPHIL % 7.5 % (0-5); GRANULOCYTE % 59.7 % (42.2-75.2); HEMATOCRIT 28.6 % (37-47); MEAN CORPUSCULAR HGB 30.2 PG (27.0-31.0); MEAN CORPUSCULAR VOLUME 91.4 FL (81.0-99.0); MEAN PLATELET VOLUME 8.7 FL (7.4-10.4); PLATELET COUNT 279 /CUMM (130-400); RBC DISTRIBUTION WIDTH 14.7 % (11.5-14.5); RED BLOOD CELL CT 3.13 /CUMM (4.20-5.40); WHITE BLOOD CELL COUNT 6.4 /CUMM (4.8-10.8)
[2017-06-05 14:47] VITALS: BP 128/72
[2017-06-05 22:14] VITALS: BP 128/74
[2017-06-06 06:55] VITALS: BP 136/54
--- NOTE | 2017-06-06 07:57 | PN- Housestaff ---
Dejon STERLING,Juju 06/06/17 0757: Subjective Follow-up For: Pneumonia Tele-Events Since Last Visit: NO Overnight acute events sinus rhythm heart rate above 40 Subjective: I seen and examined the patient. The patient was sleeping. daughter by the bedside. Patient had another bowel movement yesterday which was small, not really does not want Fleet enemas, no other complaints, stable for discharge Review of Systems Constitutional: Reports: see HPI. Objective Last 24 Hrs of Vital Signs/I&O Vital Signs Date Time Temp Pulse Resp B/P B/P Pulse O2 O2 Flow FiO2 Mean Ox Delivery Rate 06/06 1047 65 136/54 06/06 1047 65 136/54 06/06 1046 65 136/54 06/06 0741 89 Room Air Room Air 06/06 0655 97.4 65 20 136/54 90 Room Air 06/05 2214 98.4 72 20 128/74 94 06/05 2026 71 06/05 2026 71 06/05 1700 91 Room Air 06/05 1447 97.4 70 20 128/72 92 Room Air 06/05 1159 93 Room Air Intake & Output 06/06 1600 06/06 0800 06/06 0000 Intake Total 150 Output Total 250 Balance -250 150 Intake, Oral 150 Output, Urine 250 Patient 163 lb Weight Weight Bed scale Measurement Method Physical Exam General Appearance: Alert, Oriented X3, Cooperative Abdomen: Normal Bowel Sounds, soft Current Medications: Current Medications Sig/Rachelle Start time Last Medication Dose Route Stop Time Status Admin Acetaminophen 650 MG Q6P PRN 06/01 1345 AC 06/04 PO 2110 Acetaminophen 1,000 MG Q6P PRN 06/01 1345 AC IV Albuterol Sulfate 3 ML EVERY 4 HRS/AWAKE 06/01 2000 AC 06/06 INH 0736 Alendronate Sodium 70 MG QWED 06/05 0700 AC 06/05 PO 1012 Amlodipine Besylate 5 MG DAILY 06/01 1515 AC 06/06 PO 1047 Amoxicillin/ 500 MG Q12 06/05 1000 AC 06/06 Clavulanate Potassium PO 1046 Artificial Tears 1 GTT BID PRN 06/01 1530 AC OU Aspirin 81 MG DAILY 06/01 1501 AC 06/06 PO 1046 Atorvastatin Calcium 40 MG 1700 06/02 1700 AC 06/05 PO 1532 Bisacodyl 10 MG Q12P PRN 06/05 1530 AC 06/05 NC 1535 Calcium 600 MG BID 06/02 1000 AC 06/06 PO 1046 Cholecalciferol 2,000 IU DAILY 06/01 1517 AC 06/06 PO 1046 Clopidogrel Bisulfate 75 MG DAILY 06/01 1517 AC 06/06 PO 1046 Cyanocobalamin 1,000 MCG DAILY 06/01 1517 AC 06/06 PO 1046 Docusate Sodium 100 MG DAILY 06/03 1255 AC 06/06 PO 1048 Enoxaparin Sodium 40 MG DAILY 06/02 1000 AC 06/06 SC 1047 Famotidine 20 MG 1/2H B/BREAKF/DINNER 06/02 0700 AC 06/06 PO 0632 Guaifenesin 15 ML Q6H PRN 06/01 1530 AC PO Hydralazine HCl 75 MG BID 06/01 2200 AC 06/06 PO 1046 Insulin Aspart 0 TIDAC 06/01 1700 AC 06/05 SC 1223 Insulin Detemir 6 UNITS QPM 06/04 2200 AC 06/05 SC 2111 Insulin Detemir 12 UNITS QAM 06/01 1519 AC 06/05 SC 1018 Ipratropium [place] 2.5 ML EVERY 4 HRS/AWAKE 06/01 2000 AC 06/06 INH 0736 Melatonin 6 MG QPM 06/01 2200 AC 06/05 PO 2024 Metoprolol Tartrate 12.5 MG BID 06/04 1505 AC 06/06 PO 1047 Multivitamins 1 TAB DAILY 06/02 1000 AC 06/06 PO 1046 Nitroglycerin 0.4 MG 1800 06/05 1800 AC 06/05 TOP 1533 Nitroglycerin 0.4 MG DAILY 06/04 1504 DC 06/04 TOP 1738 Pregabalin 200 MG AT BEDTIME 06/01 2200 AC 06/05 PO 2024 Rivastigmine Tartrate 6 MG BID 06/01 2200 AC 06/06 PO 1047 Senna/Docusate Sodium 1 TAB BID 06/05 1000 AC 06/06 PO 1046 Sodium Phosphate 1 UNIT ONCE ONE 06/05 1615 DC NC 06/05 1616 Trazodone HCl 25 MG DAILY NEEDED PRN 06/05 0845 AC 06/05 PO 2023 Trazodone HCl 100 MG QPM 06/01 2200 AC 06/05 PO 2025 Assessment/Plan Assessment: 87 yo F with pmh of CVA 6 years ago with no residual neurologic deficit, worsening dementia but functional in her daily activities, hypertension, hyperlipidemia, type 1 diabetes, PVD status post left popliteal stent and left first toe amputation, urinary incontinence, osteoarthritis, recurrent UTI until 6 months ago, resident of [facility], was sent in for worsening shortness of breath and mildly productive cough while on oral antibiotics and oral prednisone. Assessment and Plan: #Community Acquired Pneumonia: Patient presented with low-grade fever and hypoxia 59%, with failure of outpt therapy, CXR negative. CT scan Bilateral posterior lower lobe atelectasis and consolidation containing air bronchograms. On CURB65 patient scored 3 points with BUN > 19, respiratory rate> 30 on presentation, age > 65, making patient severe risk with 14% 30 day mortality. * Oral Augmentin day 6 today of antibiotic therapy * TRC/nebs as needed, wean off oxygen * Monitor fever and the WBC curve, patient remains afebrile white count WNL * Swallow eval pending #Type II IL: Elevated troponins on admission were likely in the setting of Type II IL, trended down, patient was evaluated by cardiology * Continue aspirin and Plavix and statin * Patient has been started on nitroglycerin patch and small dose beta zain 12.5 twice a day as per cardiology note NO BRADYCARDIC EVENTS * Blood pressure remains stable * Echocardiogram no evidence of CHF, EF at 75% with no obvious regional wall motion abnormalities. #Constipation: soft belly , mild distension BM yesterday * By mouth and NC bisacodyl,MiraLAX,Colace, senna #Anemia: Patient has had a 2 point drop in Hb. likely dilutional, Normal reticulocyte count: Stable #Diabetic diet, insulin as per home medication, Accu-Cheks 3 times a day/before meals and at bedtime. #DVT prophylaxis with Lovenox. #Code status: DNR/DNI. Problem List: 1. Demand ischemia of myocardium Pain Ratin Pain Location: n/a Pain Goal: Pain 4 or less Pain Plan: prn Tomorrow's Labs & Rationales: n/a Mark Shah MD 06/06/17 0859: Attending Review Statement Attending Statement Attending Statement: examined this patient, discuss w/resident/PA/[employer], agreed w/resident/PA/[employer], discussed with family, reviewed EMR data (avail), discussed with nursing, discussed with case mgmt, amended to note Attending Assessment/Plan: Patient seen and examined. Lying comfortably in the bed and not in any acute distress. Family present at the bedside. Mom reports patient had a bowel movement yesterday after administration of suppository. She reports the patient slept better last night. This morning she is maintaining saturation on 1 L of oxygen. Lungs are clear to auscultation bilaterally. Abdomen is soft and nontender with normal bowel sounds that she has trace peripheral edema. She had no events overnight on telemetry. She has no further bradycardia. Recommendations: -Patient is medically stable to be discharged. -She is to complete her course of oral antibiotic therapy at the nursing facility. -She is to follow-up with cardiology service as an outpatient.
[2017-06-06] MEDS ORDERED: AUGMENTIN 500-1 EACH PO (09:00)
[2017-06-06 12:30] VITALS: BP 136/54
[2017-06-06] MEDS ORDERED: DOXYCYCLINE HY100 M2 PO (12:37)
== END 2017-06-06 13:00 | DRG 193 ==
LOC: ERH 11:35 → ERHI 13:22 → 1NO 13:22 → ENRESERV 14:07 → ENTRNSPT 15:19 → EDTRNSPTSTS 15:35 → 1NO 15:52 → CMPTRNSPT 16:04 → 1NO 06-02 11:39 → ENPENDDIS 06-06 09:01 → 1NO 06-06 13:00
PROVIDERS: Internal Medicine; Internal Medicine Adolescent Medicine; Student in an Organized Health Care Education/Training Program
DX: J18.9 Pneumonia, unspecified organism (principal); J96.01 Acute respiratory failure with hypoxia; I21.A1 Myocardial infarction type 2; E87.1 Hypo-osmolality and hyponatremia; E11.65 Type 2 diabetes mellitus with hyperglycemia; E11.51 Type 2 diabetes mellitus with diabetic peripheral angiopathy without gangrene; F03.90 Unspecified dementia, unspecified severity, without behavioral disturbance, psychotic disturbance, mood disturbance, and anxiety; D64.9 Anemia, unspecified; E78.5 Hyperlipidemia, unspecified; Z79.4 Long term (current) use of insulin; R32 Unspecified urinary incontinence; Z66 Do not resuscitate; K59.00 Constipation, unspecified; Z86.73 Personal history of transient ischemic attack (TIA), and cerebral infarction without residual deficits
CPT/HCPCS: 1NP; 36415; 81003; 82436; 87070; 87449; 87450; 87804; 87804-59; 93005; 93010; 93306; 96365; 96375; 97110-GO; 97112-GO; 97161-GP; 97530-GO; 99291; J0131; J0456; J0696; J1650; J1940; J3490; J7040